=== PATIENT | female | born 1980 | race Caucasian/White ===

== ENCOUNTER 2017-04-10 09:35 | Inpatient (IN) | payer OTHER ==
--- NOTE | 2017-04-10 10:07 | PDOC ---
History of Present Illness - General Chief Complaint: Nausea/Vomiting Stated Complaint: COLD SYMPTOMS, BACK PAIN - History of Present Illness Initial Comments: 04/10/17 10:07 Ms. Cardenas is a 36 year old female with a significant past medical history of diverticulitis and cholesystectomy who presents to the emergency department with 3 days of suprapubic abdominal pain radiating to kidneys plus nausea, vomiting, diarrhea, and subjective fevers/chills. The patient denies chest pain, shortness of breath, headache and dizziness. Denies dysuria, frequency, urgency and hematuria. Allergies: NKDA Past surgical history: Gall bladder removal Social history: Reports drinking socially 1x/month. Will finish bottle of vodka when she does. PMD - Tanisha Alexander 04/10/17 10:38 04/10/17 10:49 Past History - Past Medical History Allergies/Adverse Reactions: Allergies Allergy/AdvReac Type Severity Reaction Status Date / Time No Known Drug Allergies Allergy Verified 04/10/17 09:40 Home Medications: Ambulatory Orders NK [No Known Home Medication] 04/10/17 Anemia: No Asthma: No Cancer: No Cardiac Disorders: No CVA: No COPD: No CHF: No Dementia: No Diabetes: No GI Disorders: No Disorders: No HTN: No Hypercholesterolemia: No Liver Disease: No Seizures: No Thyroid Disease: No Other medical history: none - Surgical History Cholecystectomy: Yes (12/12/12) - Psycho/Social/Smoking Cessation Hx Anxiety: No Suicidal Ideation: No Smoking Status: Yes Smoking History: Never smoked Have you smoked in the past 12 months: No Number of Cigarettes Smoked Daily: 0 Information on smoking cessation initiated: No Hx Alcohol Use: No Drug/Substance Use Hx: No Substance Use Type: Alcohol Review of Systems - Review of Systems Comments:: 04/10/17 10:07 GENERAL/CONSTITUTIONAL: + Subjective fever or chills. No weakness. HEAD, EYES, EARS, NOSE AND THROAT: No change in vision. No ear pain or discharge. No sore throat. CARDIOVASCULAR: No chest pain or shortness of breath RESPIRATORY: No cough, wheezing, or hemoptysis. GASTROINTESTINAL: + suprapubic abdominal pain radiating to kidneys plus nausea, vomiting, and diarrhea. Reports vomit is liquid and yellow and diarrhea is liquid and green GENITOURINARY: No dysuria, frequency, or change in urination. MUSCULOSKELETAL: No joint or muscle swelling or pain. No neck or back pain. SKIN: No rash NEUROLOGIC: No headache, vertigo, loss of consciousness, or change in strength/ sensation. ENDOCRINE: No increased thirst. No abnormal weight change HEMATOLOGIC/LYMPHATIC: No anemia, easy bleeding, or history of blood clots. ALLERGIC/IMMUNOLOGIC: No hives or skin allergy. 04/10/17 10:55 *Physical Exam - Vital Signs Last Vital Signs Temp Pulse Resp BP Pulse Ox 98.7 F 112 H 18 108/65 100 04/10/17 09:41 04/10/17 09:41 04/10/17 09:41 04/10/17 09:41 04/10/17 09:41 - Physical Exam Comments: 04/10/17 10:07 GENERAL: Awake, alert, and fully oriented, in no acute distress HEAD: No signs of trauma, normocephalic, atraumatic EYES: PERRLA, EOMI, sclera anicteric, conjunctiva clear ENT: Auricles normal inspection, hearing grossly normal, nares patent, oropharynx clear without exudates. Moist mucosa NECK: Normal ROM, supple, no lymphadenopathy, JVD, or masses LUNGS: No distress, speaks full sentences, clear to auscultation bilaterally HEART: Regular rate and rhythm, normal S1 and S2, no murmurs, rubs or gallops, peripheral pulses normal and equal bilaterally. ABDOMEN: Tender to palpation suprapubically, some guarding, no rebound. Soft, normoactive bowel sounds.Soft, nontender, normoactive bowel sounds. No masses EXTREMITIES: Normal inspection, Normal range of motion, no edema. No clubbing or cyanosis. NEUROLOGICAL: Cranial nerves II through XII grossly intact. Normal speech, normal gait, no focal sensorimotor deficits SKIN: Warm, Dry, normal turgor, no rashes or lesions noted. 04/10/17 10:57 Heart Score/ECG Review #1 04/10/17 11:21 Normal rhythm, normal rate, normal access, normal intervals. Normal EKG. ED Treatment Course - LABORATORY CBC & Chemistry Diagram: 04/10/17 10:50 04/10/17 10:50 Medical Decision Making - Medical Decision Making 04/10/17 11:06 Patient presents with abdominal pain consistent with her normal diverticulitis symptoms complicated by fevers/chills after eating seafood. Suspect exacerbation of diverticulitis with complicating features. Will order BMP / urinalysis etc. to rule out alternate cause of fever/chills. 04/10/17 11:11 Noted elevated white count, leukocyte esterase, protein, and blood. Suspect UTI as cause of fever/chills. 04/10/17 16:[address] impressions IMPRESSION: 1. Findings consistent with acute diverticulitis with possible colovesical fistula. 2. Suspected parapelvic renal cysts. The possibility of left-sided hydronephrosis cannot be excluded. Clinical correlation and follow-up recommended. Please see above discussion. Consulting Gen Surgery and Urology for admitting instruction 04/10/17 16:39 Surgery Consulted and will cover with medicine 04/10/17 17:23 Urology consulted and on board, will see patient in morning delayed CT ordered to reexamine possible fistula urinalysis / Urine culture ordered Admitted to medicine with surgery/urology following *DC/Admit/Observation/Transfer Diagnosis at time of Disposition: Fistula Diverticulitis Qualifiers: Diverticulitis site: unspecified part of intestinal tract Qualified Code(s): K57.93 - Diverticulitis of intestine, part unspecified, without perforation or abscess with bleeding - Referrals Referrals: Tanisha Moran MD [Primary Care Provider] - Gustavo Melo MD [Staff Physician] - Melvin Krishnamurthy MD., MD [Staff Physician] - - Attestations Physician Attestion: 04/10/17 10:58 I, Dr. Ricardo Han, attest that this document has been prepared under my direction and personally reviewed by me in its entirety. I further attest, that it accurately reflects all work, treatment, procedures and medical decision -making performed by me.
[2017-04-10] MEDS ORDERED: ONDANSETRON 4 MG/2 ML VIAL IVPB ONE (10:30)
[2017-04-10] MEDS ORDERED: morphine CARPU-JECT 4 MG/1 ML DISP.SYRIN IVPUSH ONE ×2 (10:30→16:28)
[2017-04-10] MEDS ORDERED: ONDANSETRON 4 MG/2 ML VIAL ONE (10:42)
[2017-04-10] MEDS ORDERED: morphine CARPU-JECT 4 MG/1 ML DISP.SYRIN ONE ×2 (10:42→16:30)
[2017-04-10 10:59] LABS: URINE APPEARANCE TURBID; URINE BILIRUBIN NEGATIVE (NEGATIVE); URINE GLUCOSE (UA) 1+ (NEGATIVE); URINE KETONE NEGATIVE (NEGATIVE); URINE NITRITE NEGATIVE (NEGATIVE); URINE UROBILINOGEN 4.0 E.U/dl E.U./dl (0.2-1.0)
[2017-04-10] MEDS: SODIUM CHLORIDE 1,000 ML IV STA (10:59)
[2017-04-10 11:01] LABS: BASOPHIL 0.3 % (0-2.0); EOSINOPHIL 0.1 % (0-4.5); MCH 30.4 pg (25.7-33.7); MCHC 34.2 g/dl (32.0-36.0); MEAN CELL VOLUME 88.8 fl (80-96); MEAN PLT VOLUME 8.7 fl (7.5-11.1); NEUTROPHILS 93.1 % (42.8-82.8); PLATELET COUNT 101 K/MM3 (134-434); WHITE BLOOD COUNT 14.8 K/mm3 (4.0-10.0)
[2017-04-10 11:02] LABS: URINE BLOOD 2+ (NEGATIVE); URINE COLOR YELLOW; URINE LEUK ESTERASE 1+ (NEGATIVE); URINE PROTEIN 2+ (NEGATIVE)
[2017-04-10 11:09] LABS: URINE BACTERIA RARE /hpf (NONE SEEN); URINE MUCUS FEW; URINE RBC 66 /hpf (0-3); URINE WBC 1065 /hpf (3-5)
[2017-04-10 11:25] LABS: ALBUMIN 3.1 g/dl (3.4-5.0); ALK PHOS 64 U/L (45-117); ANION GAP 13 (8-16); BILIRUBIN,TOTAL 2.2 mg/dL (0.2-1.0); CALCIUM 8.3 mg/dL (8.5-10.1); CO2 24 mmol/L (21-32); CREATININE 1.1 mg/dL (0.55-1.02); GLUCOSE,RANDOM 204 mg/dL (74-106); SGOT/AST 25 U/L (15-37); SGPT/ALT 36 U/L (12-78); TOT PROT 6.3 g/dl (6.4-8.2)
--- NOTE | 2017-04-10 13:12 | PDOC ---
Attending Attestation - HPI HPI: The patient is a 36 yo F with a past medical history of diverticulitis ( diagnosed in 2012), cholecystectomy, prediabetes, and cysts on breasts who comes in with nausea, vomiting, diarrhea and abdominal pain for 4 days. The patient describes her vomit and diarrhea as green and liquidy. Patient states her abdominal pain woke her up on night after a recent trip to [place]. Patient also endorses subjective fevers and chills. She states her pain began suprapubically and progressed to flank, however, upon evaluation she notes her pain is only in her suprapubic region. The patient states her pain is similar to her prior diverticulitis. - Physicial Exam PE: GENERAL: Awake, alert, and fully oriented, in no acute distress HEAD: No signs of trauma EYES: PERRLA, EOMI, sclera anicteric, conjunctiva clear ENT: Auricles normal inspection, hearing grossly normal, nares patent, oropharynx clear without exudates. Moist mucosa NECK: Normal ROM, supple, no lymphadenopathy, JVD, or masses LUNGS: Breath sounds equal, clear to auscultation bilaterally. No wheezes, and no crackles HEART: Regular rate and rhythm, normal S1 and S2, no murmurs, rubs or gallops ABDOMEN: Soft, Tenderness to LLQ. No peritoneal signs, normoactive bowel sounds. No guarding, no rebound. No masses EXTREMITIES: Normal range of motion, no edema. No clubbing or cyanosis. No cords, erythema, or tenderness NEUROLOGICAL: Cranial nerves II through XII grossly intact. Normal speech, normal gait SKIN: Warm, Dry, normal turgor, no rashes or lesions noted. - Medical Decision Making Will obtain: Abdominal CT Will educate patient on diverticulitis diet. Documentation prepared by Sasha Lozoya, acting as medical lead for Conor Hu MD/DO. <Sasha Lozoya - Last Filed: 04/10/17 13:12> - ED Attending Attestation I have performed the following: I have examined & evaluated the patient, The case was reviewed & discussed with the resident, I agree w/resident's findings & plan, Exceptions are as noted <Conor Hu - Last Filed: 04/14/17 16:53> Discharge Disposition - Discharge Dispostion Admit: Yes <Conor Hu - Last Filed: 04/14/17 16:53> - Diagnosis Fistula Diverticulitis Qualifiers: Diverticulitis site: unspecified part of intestinal tract
[2017-04-10] MEDS ORDERED: LEVOFLOXACIN 750 MG IVPB 150 ML IVPB ONE ×2 (15:51→16:31)
[2017-04-10] MEDS ORDERED: METRONIDAZOLE 500 MG PREMIXED 100 ML IVPB ONE ×2 (15:52→16:31)
[2017-04-10] MEDS ORDERED: ACETAMINOPHEN 1000 MG/100 ML VIAL (NON FORMULARY) IVPB ONE (16:47)
[2017-04-10] MEDS ORDERED: ACETAMINOPHEN INJECTION 100 ML IVPB ONE (16:48)
[2017-04-10] MEDS ORDERED: SODIUM CHLORIDE 1,000 ML IV STA ×3 (17:16→21:35)
[2017-04-10 20:25] LABS: URINE APPEARANCE CLOUDY; URINE BILIRUBIN NEGATIVE (NEGATIVE); URINE COLOR AMBER; URINE GLUCOSE (UA) 1+ (NEGATIVE); URINE KETONE TRACE (NEGATIVE); URINE NITRITE POSITIVE (NEGATIVE); URINE UROBILINOGEN 4.0 E.U/dl E.U./dl (0.2-1.0)
[2017-04-10 20:31] LABS: URINE BLOOD 2+ (NEGATIVE); URINE LEUK ESTERASE 3+ (NEGATIVE); URINE PROTEIN 2+ (NEGATIVE)
[2017-04-10 20:34] LABS: URINE BACTERIA MANY /hpf (NONE SEEN); URINE MUCUS RARE; URINE RBC 47 /hpf (0-3); URINE WBC 128 /hpf (3-5)
--- NOTE | 2017-04-10 21:36 | PDOC ---
*Physical Exam - Vital Signs Last Vital Signs Temp Pulse Resp BP Pulse Ox 99.3 F 109 H 20 102/55 96 04/10/17 18:25 04/10/17 18:25 04/10/17 18:25 04/10/17 18:25 04/10/17 18:25 ED Treatment Course - LABORATORY CBC & Chemistry Diagram: 04/10/17 10:50 04/10/17 10:50 - ADDITIONAL ORDERS Additional order review: Laboratory Results 04/10/17 04/10/17 04/10/17 20:05 19:40 17:00 Sodium Potassium Chloride Carbon Dioxide Anion Gap BUN Creatinine Creat Clearance w eGFR Random Glucose Lactic Acid 1.8 2.5 H* Calcium Total Bilirubin AST ALT Alkaline Phosphatase Total Protein Albumin Lipase Serum , Qual Urine Color Sully Urine Appearance Cloudy Urine pH 5.0 Ur Specific [place] Urine Protein 2+ H Urine Glucose (UA) 1+ H Urine Ketones Trace H Urine Blood 2+ H Urine Nitrite Positive Urine Bilirubin Negative Urine Urobilinogen 4.0 e.u/dl H Ur Leukocyte Esterase 3+ H D Urine RBC 47 Urine WBC 128 Ur Epithelial Cells Few Urine Bacteria Many Urine Mucus Rare 04/10/17 04/10/17 04/10/17 10:50 10:50 10:41 Sodium 136 Potassium 3.5 Chloride 99 Carbon Dioxide 24 Anion Gap 13 BUN 21 H D Creatinine 1.1 H Creat Clearance w eGFR 56.20 Random Glucose 204 H D Lactic Acid Calcium 8.3 L Total Bilirubin 2.2 H D AST 25 ALT 36 D Alkaline Phosphatase 64 Total Protein 6.3 L D Albumin 3.1 L D Lipase 71 L Serum , Qual Negative Urine Color Yellow Urine Appearance Turbid Urine pH 5.0 Ur Specific [place] Urine Protein 2+ H Urine Glucose (UA) 1+ H Urine Ketones Negative Urine Blood 2+ H Urine Nitrite Negative Urine Bilirubin Negative Urine Urobilinogen 4.0 e.u/dl H Ur Leukocyte Esterase 1+ H Urine RBC 66 Urine WBC 1065 Ur Epithelial Cells Many Urine Bacteria Rare Urine Mucus Few 04/10/17 10:50 RBC 4.36 MCV 88.8 MCHC 34.2 RDW 13.0 MPV 8.7 Neutrophils % 93.1 H Lymphocytes % 2.2 L D Monocytes % 4.3 Eosinophils % 0.1 Basophils % 0.3 - Medications Given in the ED: ED Medications Discontinued Medications Generic Name Dose Route Start Last Admin Trade Name [place] PRN Reason Stop Dose Admin Acetaminophen 1,000 mg 04/10/17 16:47 04/10/17 17:00 Ofirmev Injection - IVPB 04/10/17 16:48 1,000 mg ONCE ONE Administration Sodium Chloride 1,000 mls @ 1,000 mls/hr 04/10/17 10:35 04/10/17 10:59 Normal Saline - IV 04/10/17 11:34 1,000 mls/hr ASDIR STA Administration Metronidazole 100 mls @ 100 mls/hr 04/10/17 15:52 04/10/17 16:20 Flagyl 500mg Premixed Ivpb - IVPB 04/10/17 16:51 100 mls/hr ONCE ONE Administration Levofloxacin 150 mls @ 100 mls/hr 04/10/17 15:51 04/10/17 17:24 Levaquin 750 Mg Premixed Ivpb - IVPB 04/10/17 17:20 100 mls/hr ONCE ONE Administration Sodium Chloride 1,000 mls @ 1,000 mls/hr 04/10/17 17:16 04/10/17 17:24 Normal Saline - IV 04/10/17 18:15 1,000 mls/hr ASDIR STA Administration Sodium Chloride 1,000 mls @ 1,000 mls/hr 04/10/17 17:52 04/10/17 18:24 Normal Saline - IV 04/10/17 18:51 1,000 mls/hr ASDIR STA Administration Morphine Sulfate 4 mg 04/10/17 10:30 04/10/17 10:59 Morphine Injection - IVPUSH 04/10/17 10:31 4 mg ONCE ONE Administration Morphine Sulfate 4 mg 04/10/17 16:28 04/10/17 16:20 Morphine Injection - IVPUSH 04/10/17 16:29 4 mg ONCE ONE Administration Ondansetron HCl 4 mg 04/10/17 10:30 04/10/17 10:59 Zofran Injection IVPB 04/10/17 10:31 4 mg ONCE ONE Administration Medical Decision Making - Medical Decision Making 04/10/17 21:33 This pt was brought to my attention when Dr Melo consulted and realized the pt had not been officially admitted in the computer. 36 yo female with colovesical fistula is being admitted by by Dr Christopher and the surgeon Dr Melo has spoken with her also about this pt's pending surgery later this week -lactic acid went from 2.5 to 1.8 -pt received antibiotics -mild thrombocytopenia -it was agreed the pt could be admitted to med/surg 04/10/17 22:32 *DC/Admit/Observation/Transfer Diagnosis at time of Disposition: Fistula Diverticulitis Qualifiers: Diverticulitis site: unspecified part of intestinal tract Qualified Code(s): K57.93 - Diverticulitis of intestine, part unspecified, without perforation or abscess with bleeding - Discharge Dispostion Admit: Yes - Referrals Referrals: Melvin Krishnamurthy MD., [Staff Physician] - Gustavo Melo MD [Staff Physician] - Tanisha Moran MD [Primary Care Provider] - - Patient Instructions - Post Discharge Activity
--- NOTE | 2017-04-10 21:41 | HP ---
CHIEF COMPLAINT:Suprapubic Pain, Fever, Chills PCP: Dr. Tanisha Chun HISTORY OF PRESENT ILLNESS: This is a 36 y/o female with a past medical history of Diverticulitis. Who presents to the ED with suprapubic pain radiating to right flank x3 days. Patient reports having frequency symptoms x 5 days. Patient states" I've been taking ibuprofen for the pain, but now the pain is worse." Patient reports having subjective fevers, chills, N/V/D. Patient denies cough, SOB, CP. LMP 2 weeks ago ER course was notable for: (1) CTAP: acute diverticulitis with possible colovesical fistula, ? left sided hydronephrosis (2) Sepsis: T 103 P 112 WBC 14.8, left shift, LA 2.5~1.8 (after fluid resuscitation) (3) UTI: +1 leukocyte esterase, +2 blood, 1065 WBC Recent Travel: From [place] PAST MEDICAL HISTORY: Diverticulitis PAST SURGICAL HISTORY: Cholescystectomy Social History: Smoking: Never Alcohol: Socially, Vodka Drugs: Denies Lives alone, employed [employer] Family History: Mother: Diabetes Father: Hypertension, HLD Allergies No Known Drug Allergies Allergy (Verified 04/10/17 09:40) HOME MEDICATIONS: Home Medications Medication Instructions Recorded NK [No Known Home Medication] 04/10/17 REVIEW OF SYSTEMS CONSTITUTIONAL: fever, chills, loss of appetite Absent: diaphoresis, generalized weakness, malaise, weight change HEENT: Absent: rhinorrhea, nasal congestion, throat pain, throat swelling, difficulty swallowing, mouth swelling, ear pain, eye pain, visual changes CARDIOVASCULAR: Absent: chest pain, syncope, palpitations, irregular heart rate, lightheadedness , peripheral edema RESPIRATORY: Absent: cough, shortness of breath, dyspnea with exertion, orthopnea, wheezing, stridor, hemoptysis GASTROINTESTINAL: abdominal pain, nausea, vomiting, diarrhea Absent: abdominal distension, constipation, melena, hematochezia GENITOURINARY: frequency, flank pain Absent: dysuria, urgency, hesitancy, hematuria, genital pain MUSCULOSKELETAL: Absent: myalgia, arthralgia, joint swelling, back pain, neck pain SKIN: Absent: rash, itching, pallor HEMATOLOGIC/IMMUNOLOGIC: Absent: easy bleeding, easy bruising, lymphadenopathy, frequent infections ENDOCRINE: Absent: unexplained weight gain, unexplained weight loss, heat intolerance, cold intolerance NEUROLOGIC: Absent: headache, focal weakness or paresthesias, dizziness, unsteady gait, seizure, mental status changes, bladder or bowel incontinence PSYCHIATRIC: Absent: anxiety, depression, suicidal or homicidal ideation, hallucinations. PHYSICAL EXAMINATION Vital Signs - 24 hr 04/10/17 04/10/17 04/10/17 09:41 12:07 15:26 Temperature 98.7 F 98.9 F Pulse Rate 112 H Pulse Rate [ 102 H Apical] Respiratory 18 18 Rate Blood Pressure 108/65 Blood Pressure 106/56 [Right Arm] O2 Sat by Pulse 100 100 Oximetry (%) 04/10/17 04/10/17 04/10/17 15:50 16:44 18:25 Temperature 98.9 F 103 F H 99.3 F Pulse Rate Pulse Rate [ 98 H 113 H 109 H Apical] Respiratory 18 20 20 Rate Blood Pressure Blood Pressure 101/76 117/67 102/55 [Right Arm] O2 Sat by Pulse 100 100 96 Oximetry (%) GENERAL: Severe Obese, awake, alert, and fully oriented, in no acute distress. HEAD: Normal with no signs of trauma. EYES: Pupils equal, round and reactive to light, extraocular movements intact, sclera anicteric, conjunctiva clear. No lid lag. EARS, NOSE, THROAT: Ears normal, nares patent, oropharynx clear without exudates. Dry mucous membranes. NECK: Normal range of motion, supple without lymphadenopathy, JVD, or masses. LUNGS: Breath sounds equal, clear to auscultation bilaterally. No wheezes, and no crackles. No accessory muscle use. HEART: Regular rate and rhythm, normal S1 and S2 without murmur, rub or gallop. ABDOMEN: Soft, not distended, no guarding, no rebound, no masses. No hepatomegaly or splenomegaly. suprapubic tenderness, hyperactive bowel sounds MUSCULOSKELETAL: Normal range of motion at all joints. No bony deformities or tenderness. + R-CVA tenderness. UPPER EXTREMITIES: 2+ pulses, warm, well-perfused. No cyanosis. No clubbing. No peripheral edema. LOWER EXTREMITIES: 2+ pulses, warm, well-perfused. No calf tenderness. No peripheral edema. NEUROLOGICAL: Cranial nerves II-XII intact. Normal speech. Gait not observed. PSYCHIATRIC: Cooperative. Good eye contact. Appropriate mood and affect. SKIN: Warm, dry, normal turgor, no rashes or lesions noted, normal capillary refill. Tattoos Laboratory Results - last 24 hr 04/10/17 04/10/17 04/10/17 10:41 10:50 10:50 WBC 14.8 H RBC 4.36 Hgb 13.2 D Hct 38.7 MCV 88.8 MCH 30.4 MCHC 34.2 RDW 13.0 Plt Count 101 L D MPV 8.7 Neutrophils % 93.1 H Lymphocytes % 2.2 L D Monocytes % 4.3 Eosinophils % 0.1 Basophils % 0.3 Sodium 136 Potassium 3.5 Chloride 99 Carbon Dioxide 24 Anion Gap 13 BUN 21 H D Creatinine 1.1 H Creat Clearance w eGFR 56.20 Random Glucose 204 H D Lactic Acid Calcium 8.3 L Total Bilirubin 2.2 H D AST 25 ALT 36 D Alkaline Phosphatase 64 Total Protein 6.3 L D Albumin 3.1 L D Lipase 71 L Serum , Qual Urine Color Yellow Urine Appearance Turbid Urine pH 5.0 Ur Specific [place] Urine Protein 2+ H Urine Glucose (UA) 1+ H Urine Ketones Negative Urine Blood 2+ H Urine Nitrite Negative Urine Bilirubin Negative Urine Urobilinogen 4.0 e.u/dl H Ur Leukocyte Esterase 1+ H Urine RBC 66 Urine WBC 1065 Ur Epithelial Cells Many Urine Bacteria Rare Urine Mucus Few 04/10/17 04/10/17 04/10/17 10:50 17:00 19:40 WBC RBC Hgb Hct MCV MCH MCHC RDW Plt Count MPV Neutrophils % Lymphocytes % Monocytes % Eosinophils % Basophils % Sodium Potassium Chloride Carbon Dioxide Anion Gap BUN Creatinine Creat Clearance w eGFR Random Glucose Lactic Acid 2.5 H* Calcium Total Bilirubin AST ALT Alkaline Phosphatase Total Protein Albumin Lipase Serum , Qual Negative Urine Color [place] Urine Appearance Cloudy Urine pH 5.0 Ur Specific [place] Urine Protein 2+ H Urine Glucose (UA) 1+ H Urine Ketones Trace H Urine Blood 2+ H Urine Nitrite Positive Urine Bilirubin Negative Urine Urobilinogen 4.0 e.u/dl H Ur Leukocyte Esterase 3+ H D Urine RBC 47 Urine WBC 128 Ur Epithelial Cells Few Urine Bacteria Many Urine Mucus Rare 04/10/17 20:05 WBC RBC Hgb Hct MCV MCH MCHC RDW Plt Count MPV Neutrophils % Lymphocytes % Monocytes % Eosinophils % Basophils % Sodium Potassium Chloride Carbon Dioxide Anion Gap BUN Creatinine Creat Clearance w eGFR Random Glucose Lactic Acid 1.8 Calcium Total Bilirubin AST ALT Alkaline Phosphatase Total Protein Albumin Lipase Serum , Qual Urine Color Urine Appearance Urine pH Ur Specific [place] Urine Protein Urine Glucose (UA) Urine Ketones Urine Blood Urine Nitrite Urine Bilirubin Urine Urobilinogen Ur Leukocyte Esterase Urine RBC Urine WBC Ur Epithelial Cells Urine Bacteria Urine Mucus ASSESSMENT/PLAN: This is a 36 y/o female with a PMHx of Diverticulitis. Presents to the ED with suprapubic pain/ R flank pain. Admitted for Acute Diverticulitis, Sepsis, UTI for further evaluation of their emergent condition. Plan: 1. Acute Diverticulitis - Patient reports pain started after eating spicy seafood - CTAP- finished consistent with Acute Diverticulitis with possible colovesical fistula, suspected parapelvic renal cysts, ? left sided hydronephrosis - WBC 14.8 - LA 2.5~1.8 - Flagyl/Levaquin given in ED, will continue - Surgery following - Continue IVF - Continue Morphine, Zofran prn - NPO - Monitor CBC, BMP - Monitor vitals 2. Sepsis - Likely secondary to Colitis vs UTI - See Above - qSOFA Score 0 - SIRS Criteria Met IV: T 103, P 112, WBC 14.8 w/left shift, LA 2.5~1.8 - Appreciate ID Consult 3. UTI - Complicated - Urine Culture-pending - Continue Flagyl/Levaquin - Monitor vitals 4. FEN - NS@125ml/hr - Replete lytes prn - NPO 5. DVT Prophylaxis - OOB - SCDs - Hold ACs 2/2 Thrombocytopenia Code Status: Full Code Problem List - Problem (1) Sepsis Code(s): A41.9 - SEPSIS, UNSPECIFIED ORGANISM (2) Diverticulitis Code(s): K57.92 - DVTRCLI OF INTEST, PART UNSP, W/O PERF OR ABSCESS W/O BLEED Qualifiers: Diverticulitis site: unspecified part of intestinal tract (3) UTI (urinary tract infection) Code(s): N39.0 - URINARY TRACT INFECTION, SITE NOT SPECIFIED (4) Fistula Code(s): L98.8 - OTH DISRD OF THE SKIN AND SUBCUTANEOUS TISSUE (5) Lactic acidemia Code(s): E87.2 - ACIDOSIS (6) Thrombocytopenia Code(s): D69.6 - THROMBOCYTOPENIA, UNSPECIFIED (7) DVT prophylaxis Code(s): ONH0720 - Visit type - Emergency Visit Emergency Visit: Yes ED Registration Date: 04/10/17 Care time: The patient presented to the Emergency Department on the above date and was hospitalized for further evaluation of their emergent condition. - New Patient This patient is new to me today: Yes Date on this admission: 04/10/17 - Critical Care Critical Care patient: No
[2017-04-10] MEDS ORDERED: morphine CARPU-JECT 4 MG/1 ML DISP.SYRIN IVPUSH PRN (22:14)
[2017-04-10] MEDS ORDERED: ONDANSETRON 4 MG/2 ML VIAL IVPUSH PRN (22:15)
[2017-04-11] MEDS: METRONIDAZOLE 500 MG PREMIXED 100 ML IVPB SCH ×2 (00:07→10:09)
[2017-04-11 02:53] VITALS: BMI 40.7
[2017-04-11 08:00] LABS: BASOPHIL 0.1 % (0-2.0); EOSINOPHIL 0.1 % (0-4.5); MCH 30.3 pg (25.7-33.7); MCHC 33.7 g/dl (32.0-36.0); MEAN CELL VOLUME 89.8 fl (80-96); MEAN PLT VOLUME 9.5 fl (7.5-11.1); NEUTROPHILS 91.9 % (42.8-82.8); PLATELET COUNT 92 K/MM3 (134-434); RDW 12.9 % (11.6-15.6); WHITE BLOOD COUNT 11.4 K/mm3 (4.0-10.0)
[2017-04-11 08:24] LABS: ANION GAP 11 (8-16); CALCIUM 7.6 mg/dL (8.5-10.1); CO2 21 mmol/L (21-32); GLUCOSE,RANDOM 153 mg/dL (74-106)
[2017-04-11] MEDS ORDERED: LEVOFLOXACIN 750 MG IVPB 150 ML IVPB SCH (10:00)
--- NOTE | 2017-04-11 10:43 | EKG ---
Test Reason : Blood Pressure : / mmHG Vent. Rate : 104 BPM Atrial Rate : 104 BPM P-R Int : 144 ms QRS Dur : 098 ms QT Int : 360 ms P-R-T Axes : 037 044 015 degrees QTc Int : 473 ms SINUS TACHYCARDIA OTHERWISE NORMAL ECG NO PREVIOUS ECGS AVAILABLE Confirmed by KAM FARRELL MD ([id number]) on 04/11/2017 10:43:39 AM Referred By: Confirmed By:KAM FARRELL MD
[2017-04-11] MEDS: SODIUM CHLORIDE 1,000 ML IV STA (12:17)
--- NOTE | 2017-04-11 15:09 | CON.GU ---
Consult Consult Specialty:: Referred by:: medicine Reason for Consultation:: 36 year old with colovesical fistula - History of Present Illness Chief Complaint: 36 year old with colovesical fistula History of Present Illness: 36 year old with long history of diverticulitis who has had severe lower abdominal pain for about two weeks. CT scan is suggestive of a diverticular abscess with possible colovesical fistula. She reports an odd sensation when she voids but not specifically any air, - History Source History Provided By: Patient, Medical Record Limitations to Obtaining History: No Limitations - Past Medical History Renal/: No: Renal Failure, Renal Calculi, UTI ...LMP: 11/19/12 - Alcohol/Substance Use Hx Alcohol Use: No - Smoking History Smoking history: Never smoked Have you smoked in the past 12 months: No Aproximately how many cigarettes per day: 0 Home Medications - Allergies Allergies/Adverse Reactions: Allergies Allergy/AdvReac Type Severity Reaction Status Date / Time No Known Drug Allergies Allergy Verified 04/10/17 09:40 - Home Medications Home Medications: Ambulatory Orders NK [No Known Home Medication] 04/10/17 Review of Systems - Review of Systems Genitourinary: reports: Dysuria, Frequency. denies: Flank Pain Physical Exam- Vital Signs: Vital Signs Temperature 98.8 F 04/11/17 09:00 Pulse Rate 107 H 04/11/17 09:00 Respiratory Rate 16 04/11/17 09:00 Blood Pressure 120/56 04/11/17 09:00 O2 Sat by Pulse Oximetry (%) 98 04/10/17 23:25 Gastrointestinal: Yes: Soft, Tenderness Renal/: No: Bladder Distention, CVA Tenderness - Left, CVA Tenderness - Right , Jasmine Present Labs: CBC, BMP 04/11/17 06:10 04/11/17 06:10 Imaging - Results Cat Scan: Report Reviewed Problem List - Problems (1) Colovesical fistula Assessment/Plan: would recommend percutaneous drainage of abscess, and colon diversion. The bowel diversion will result in healing of the fistula. Code(s): N32.1 - VESICOINTESTINAL FISTULA
[2017-04-11] MEDS ORDERED: DEXTROSE 5%-0.45% SALINE 1,000 ML IV SCH (15:15)
--- NOTE | 2017-04-11 15:53 | PN ---
Physical Exam: SUBJECTIVE: Patient seen and examined at bedside. Two episodes of watery diarrhea over past 24 hours, does not know color, did not look. Has had episodes of chills. Feels very thirsty. OBJECTIVE: Vital Signs Period Temp Pulse Resp BP Sys/Beyer Pulse Ox Last 24 Hr 98.5 F-100.4 F 102-108 16-20 80-131/45-65 97-98 GENERAL: The patient is awake, alert, and fully oriented, in no acute distress. HEAD: Normal with no signs of trauma. EYES: PERRL, extraocular movements intact, sclera anicteric, conjunctiva clear. No ptosis. LUNGS: Breath sounds equal, clear to auscultation bilaterally, no wheezes, no crackles, no accessory muscle use. HEART: Regular rate and rhythm, S1, S2 without murmur, rub or gallop. ABDOMEN: Soft, LLQ and lower middle quadrant tenderness; normoactive bowel sounds, no guarding, no rebound EXTREMITIES: 2+ pulses, warm, well-perfused, no edema. NEUROLOGICAL: Cranial nerves II through XII grossly intact. Normal speech, gait not observed. Moving all extremities freely Laboratory Results - last 24 hr 04/11/17 04/11/17 06:10 06:10 WBC 11.4 H RBC 3.91 Hgb 11.8 D Hct 35.2 MCV 89.8 MCH 30.3 MCHC 33.7 RDW 12.9 Plt Count 92 L MPV 9.5 Neutrophils % 91.9 H Lymphocytes % 2.2 L Monocytes % 5.7 Eosinophils % 0.1 Basophils % 0.1 Sodium 140 Potassium 4.0 Chloride 108 H Carbon Dioxide 21 Anion Gap 11 BUN 16 D Creatinine 1.0 Random Glucose 153 H D Calcium 7.6 L Current Medications Generic Name Dose Route Start Last Admin Trade Name Freq PRN Reason Stop Dose Admin Piperacillin Sod/Tazobactam 100 mls @ 200 mls/hr 04/11/17 18:00 Sod 4.5 gm/ Dextrose IVPB Q8H-IV MASON Protocol Morphine Sulfate 4 mg 04/10/17 22:14 04/11/17 06:22 Morphine Injection - IVPUSH 4 mg Q6H PRN Administration PAIN Ondansetron HCl 4 mg 04/10/17 22:15 04/10/17 22:55 Zofran Injection IVPUSH 4 mg Q6H PRN Administration NAUSEA AND/OR VOMITING Imaging CTAP - two studies done on 04/10/17: (1) acute diverticulitis in the mid sigmoid colon; (2) collection/abscess inseparable from thickened dome of the urinary bladder; (3) possible colovesical fistula; (4) possible left-sided hydronephrosis; (5) s/p cholecystectomy ASSESSMENT/PLAN 36 year-old female with a PMH significant for diverticulitis and s/p cholecystectomy. Admitted for acute diverticulitis, abscess, and possible colovesical fistula. Severe sepsis secondary to acute diverticulitis with abscess and colovesical fistula Bacteremia --over the past 24 hours, Tm 103, tachycardic to 115, WBC 14.8k, lactic acidosis --blood cultures x 2 pending organism --switched to Zosyn today (day #1) --seen and evaluated by surgery, plan is for laparoscopic sigmoid resection tomorrow with repair of colovesicular fistula; high likelihood of open; high likelihood of ostomy; operation tentatively scheduled for 04/12/[address] Stone Elevated bilirubin --may be secondary to sepsis, will get LFTs including indirect bili F/E/N Fluids: NS @ 125mL/hr Electrolytes: replete as indicated Nutrition: water, ice chips; NPO after midnight DVT prophylais: SCDs, oob, ambulation; hold chemical prophylaxis for surgery tomorrow Dispo: continues to require inpatient care. Full Code. Visit type - Emergency Visit Emergency Visit: Yes ED Registration Date: 04/10/17 Care time: The patient presented to the Emergency Department on the above date and was hospitalized for further evaluation of their emergent condition. - New Patient This patient is new to me today: Yes Date on this admission: 04/11/17 - Critical Care Critical Care patient: No
[2017-04-11] MEDS ORDERED: MAGNESIUM HYDROX 2400MG/30ML ORAL SUSPENSION 30 ML CUP PO ONE (16:18)
--- NOTE | 2017-04-11 16:22 | PN ---
Progress Note, Physician Chief Complaint: low grade abd pain History of Present Illness: pt still with some LLQ pain. CT reviewed. thirsty. - Current Medication List Current Medications: Active Medications Metronidazole (Flagyl 500mg Premixed Ivpb -) 100 mls @ 100 mls/hr IVPB Q8H-IV MASON Last Admin: 04/11/17 10:09 Dose: 100 mls/hr Levofloxacin (Levaquin 750 Mg Premixed Ivpb -) 150 mls @ 100 mls/hr IVPB DAILY MASON Last Admin: 04/11/17 11:50 Dose: 100 mls/hr Magnesium Hydroxide (Milk Of Magnesia -) 30 ml PO ONCE ONE Stop: 04/11/17 16:19 Morphine Sulfate (Morphine Injection -) 4 mg IVPUSH Q6H PRN PRN Reason: PAIN Last Admin: 04/11/17 06:22 Dose: 4 mg Ondansetron HCl (Zofran Injection) 4 mg IVPUSH Q6H PRN PRN Reason: NAUSEA AND/OR VOMITING Last Admin: 04/10/17 22:55 Dose: 4 mg - Objective Vital Signs: Vital Signs Temperature 98.9 F 04/11/17 15:00 Pulse Rate 105 H 04/11/17 15:00 Respiratory Rate 18 04/11/17 15:00 Blood Pressure 123/53 04/11/17 15:00 O2 Sat by Pulse Oximetry (%) 98 04/10/17 23:25 Constitutional: Yes: No Distress, Calm Eyes: Yes: Conjunctiva Clear, EOM Intact HENT: Yes: Atraumatic, Normocephalic Neck: Yes: Supple, Trachea Midline Cardiovascular: Yes: Regular Rate and Rhythm Respiratory: Yes: Regular Gastrointestinal: Yes: Soft, Tenderness (LLQ.). No: Distention ...Rectal Exam: Yes: Deferred Genitourinary: No: CVA Tenderness - Left, CVA Tenderness - Right Breast(s): No: Gynecomastia, Mass Musculoskeletal: No: Joint Stiffness, Joint Swelling Extremities: No: Calf Tenderness, Erythema Integumentary: No: Erythema, Rash Neurological: Yes: Alert, Oriented Psychiatric: Yes: Alert, Oriented Labs: CBC, BMP 04/11/17 06:10 04/11/17 06:10 Problem List - Problems (1) Colovesical fistula Assessment/Plan: patient counseled will attempt laparoscopic sigmoid resection tomorrow with repair of colovesicular fistula. high likelihood of open. high likelihood of ostomy. operation tentatively sheduled for 04/12/17 at 1pm. Code(s): N32.1 - VESICOINTESTINAL FISTULA
--- NOTE | 2017-04-11 17:13 | CONSULT ---
Consult Consult Specialty:: infectious diseases Reason for Consultation:: diverticulitis/w/abscess with suspicion of colovesical fistula - History of Present Illness Chief Complaint: abd pain History of Present Illness: 36 year old with long history of diverticulitis according to her started about more than a year back starting having severe lower abdominal pain for about two weeks. When asked her when was her last attack,she mentions that she does not really know. patient came to the hospital was admitted and the CT scan is suggestive of a diverticular abscess with possible colovesical fistula. patient denies any air in the urine patient has been evaluated by surgery and urology and the plan is to take her to the operating room. currently patient is comfortable and her family is in the room on admission patient was also c/o of rt flank pain she took ibuprofen but without any relief subjective fevers work up also showed leukocytosis - History Source History Provided By: Patient Limitations to Obtaining History: No Limitations - Past Medical History Renal/: No: Renal Failure, Renal Calculi, UTI ...LMP: 11/19/12 - Alcohol/Substance Use Hx Alcohol Use: No - Smoking History Smoking history: Never smoked Have you smoked in the past 12 months: No Aproximately how many cigarettes per day: 0 Home Medications - Allergies Allergies/Adverse Reactions: Allergies Allergy/AdvReac Type Severity Reaction Status Date / Time No Known Drug Allergies Allergy Verified 04/10/17 09:40 - Home Medications Home Medications: Ambulatory Orders NK [No Known Home Medication] 04/10/17 Review of Systems - Review of Systems Constitutional: reports: Loss of Appetite Eyes: reports: No Symptoms HENT: reports: No Symptoms Neck: reports: No Symptoms Cardiovascular: reports: No Symptoms Respiratory: reports: No Symptoms Gastrointestinal: reports: Abdominal Pain Genitourinary: reports: Other Musculoskeletal: reports: No Symptoms Integumentary: reports: No Symptoms Neurological: reports: No Symptoms Endocrine: reports: No Symptoms Hematology/Lymphatic: reports: No Symptoms Psychiatric: reports: No Symptoms Physical Exam Vital Signs: Vital Signs Temperature 100.3 F H 04/11/17 16:20 Pulse Rate 115 H 04/11/17 16:20 Respiratory Rate 20 04/11/17 16:20 Blood Pressure 127/73 04/11/17 16:20 O2 Sat by Pulse Oximetry (%) 98 04/10/17 23:25 Constitutional: Yes: Well Nourished, Moderate Distress, Obese Eyes: Yes: Conjunctiva Clear HENT: Yes: Atraumatic Neck: Yes: Supple, Trachea Midline Cardiovascular: Yes: Regular Rate and Rhythm Respiratory: Yes: Regular, CTA Bilaterally Gastrointestinal: Yes: Soft, Tenderness Musculoskeletal: Yes: WNL Extremities: Yes: WNL Neurological: Yes: Alert, Oriented Psychiatric: Yes: Alert, Oriented Labs: CBC, BMP 04/11/17 06:10 04/11/17 06:10 Assessment/Plan Problem List - Problem (1) Sepsis Code(s): A41.9 - SEPSIS, UNSPECIFIED ORGANISM (2) Diverticulitis Code(s): K57.92 - DVTRCLI OF INTEST, PART UNSP, W/O PERF OR ABSCESS W/O BLEED Qualifiers: Diverticulitis site: unspecified part of intestinal tract (3) UTI (urinary tract infection) Code(s): N39.0 - URINARY TRACT INFECTION, SITE NOT SPECIFIED (4) colovesical fistula (5) Lactic acidemia Code(s): E87.2 - ACIDOSIS (6) Thrombocytopenia Code(s): D69.6 - THROMBOCYTOPENIA, UNSPECIFIED (7)leukocytosis 8 gm negative bacteremia plan will change abx to zosyn hydration continue current mgmt await for surgery will await the finding await for cx results to identify the organism
[2017-04-11] MEDS ORDERED: PIPERACILLIN/TAZOBACTAM 4.5 GM VIAL IVPB ONE (17:57)
[2017-04-11] MEDS ORDERED: DEXTROSE 5%-WATER 100 ML IVPB ONE (17:57)
[2017-04-11] MEDS: PIPERACILLIN/TAZOB 4.5 GM 4.5 GM in DEXTROSE 5%-WATER 100 ML IVPB SCH (18:20)
--- NOTE | 2017-04-11 18:29 | CONSULT ---
Consult Consult Specialty:: General Surgery Referred by:: Dr. Hu/Ashwin Reason for Consultation:: diverticulitis with colovesical fistula - History of Present Illness Chief Complaint: suprapubic and LLQ pain History of Present Illness: 36yo morbidly obese F with h/o lap fernanda 2-3 years ago here, first experienced diverticulitis a couple of weeks after her surgery and was hospitalized for it. Since then, she has "watched her diet," and avoided some types of foods, trying to minimize recurrent attacks, but does get flares several times a year. She has not sought medical care for any of these since the first time, but self- treats with periods of NPO, fluids, rest, and dietary changes. She tends to diarrhea (nonbloody), and pain is usually in the left lower abdomen, but has been more suprapubic this time and at the last episode in late March. The current attack began on , associated with darkening of her urine, an odd feeling at the end of urination, diarrhea, and nausea and vomiting a few times on Tuesday. She also began having some pain in her right flank/sacroiliac area. The abdominal pain got so bad, she came to the ER yesterday, where her wbc was 14.8, UA was positive for infection, and CT showed proximal sigmoid diverticulitis without abscess or perforation as well as air in the bladder and inflammation suggestive of colovesical fistula. Delayed images confirmed air and contrast with inflammatory changes around the dome of the bladder highly suspicious for same. She also reports having had a colonoscopy a few months ago, where they found only the diverticul(itis/osis?). She asked if she needed surgery and was told she only needed to watch her diet. She has lost about 30 pounds in the last year because of diet changes. Her only regular home med is control pills, started 2 months ago, to regulate periods which have not come back since she stopped taking long-term injectable contraception about 4-5 years ago. - History Source History Provided By: Patient Limitations to Obtaining History: No Limitations - Past Medical History Gastrointestinal: Yes: Diverticulitis Reproductive: Yes: Other (amenorrhea - had been on depo but period did not return when stopped, just started OCP 2m ago to try and regulate) ...LMP: 11/19/12 ...: No Additional Medical History: morbid obesity - Past Surgical History Past Surgical History: Yes: Cholecystectomy (laparoscopic 2-3 years ago), Colonoscopy (few months ago) - Alcohol/Substance Use Hx Alcohol Use: No History of Substance Use: reports: None - Smoking History Smoking history: Never smoked Have you smoked in the past 12 months: No Aproximately how many cigarettes per day: 0 Home Medications - Allergies Allergies/Adverse Reactions: Allergies Allergy/AdvReac Type Severity Reaction Status Date / Time No Known Drug Allergies Allergy Verified 04/10/17 09:40 - Home Medications Home Medications: Ambulatory Orders NK [No Known Home Medication] 04/10/17 Family Disease History - Family Disease History Family History: Unremarkable Review of Systems - Review of Systems Constitutional: denies: Chills, Fever Eyes: denies: Blurred Vision, Double Vision HENT: denies: Difficult Swallowing, Nasal Congestion, Throat Pain Neck: denies: Swollen Glands, Tenderness Cardiovascular: denies: Chest Pain, Palpitations Respiratory: denies: Cough, SOB Gastrointestinal: reports: Abdominal Pain, Diarrhea (tends to frequently, especially with flares of diverticulitis), Nausea (Tuesday), Vomiting (Tuesday). denies: Melena, Vomiting Blood Genitourinary: reports: Flank Pain (right side last few days), Other (darker in color last few days to a week, funny sensation at end of urination - could be air). denies: Burning, Dysuria, Menses (not back since stopping long-term contraception several years ago) Breasts: reports: Skin Changes (right), Other (cyst identified right breast, aspiration attempted but "they got nothing out," - the area opened and drained dark brown fluid recently but the skin has not healed yet (she has been using peroxide on the site)) Musculoskeletal: denies: Back Pain, Joint Swelling Integumentary: reports: Wound (right breast). denies: Rash Neurological: denies: Dizziness, Headache Endocrine: denies: Unexplained Weight Gain, Unexplained Weight Loss (has lost about 30 pounds in the last year, attributed to "watching her diet" because of the diverticulitis) Psychiatric: denies: Anxiety, Depression Physical Exam Vital Signs: Vital Signs Temperature 100.3 F H 04/11/17 16:20 Pulse Rate 115 H 04/11/17 16:20 Respiratory Rate 20 04/11/17 16:20 Blood Pressure 127/73 04/11/17 16:20 O2 Sat by Pulse Oximetry (%) 98 04/11/17 09:00 Constitutional: Yes: No Distress, Calm, Obese Eyes: Yes: Conjunctiva Clear, EOM Intact HENT: Yes: Atraumatic, Normocephalic Cardiovascular: Yes: Regular Rate and Rhythm. No: Murmur Respiratory: Yes: Regular, CTA Bilaterally Gastrointestinal: Yes: Normal Bowel Sounds, Soft, Abdomen, Obese, Tenderness ( suprapubic and less LLQ without rebound or guarding). No: Distention, Tenderness, Rebound ...Rectal Exam: Yes: Deferred Renal/: Yes: CVA Tenderness - Right. No: CVA Tenderness - Left Breast(s): Yes: Right, Skin Changes (two small ulcers/scabs at 1:00 and 2:00 periareolar, nontender, with mild local erythema, no palpable underlying mass; able to express a few drops of cloudy fluid from the 2:00 site, but no spontaneous drainage). No: Discharge from Nipple, Nipple Inversion Musculoskeletal: No: Joint Stiffness, Joint Swelling Extremities: No: Cool, Cyanosis Edema: No Peripheral Pulses WNL: Yes Integumentary: Yes: Tattoos. No: Rash Wound/Incision: Yes: Open to air (right breast periareolar scabs/ulcers). No: Draining, Bleeding Neurological: Yes: Alert, Oriented Psychiatric: Yes: Alert, Oriented Labs: CBC, BMP 04/11/17 06:10 04/11/17 06:10 Abnormal Lab Results 04/10/17 04/11/17 04/11/17 19:40 06:10 06:10 WBC 11.4 H Plt Count 92 L Neutrophils % 91.9 H Lymphocytes % 2.2 L Chloride 108 H Random Glucose 153 H D Calcium 7.6 L Urine Protein 2+ H Urine Glucose (UA) 1+ H Urine Ketones Trace H Urine Blood 2+ H Urine Urobilinogen 4.0 e.u/dl H Ur Leukocyte Esterase 3+ H D Microbiology 04/10/17 17:00 Blood Culture - Preliminary Blood - Peripheral Venous Pending Organism 04/10/17 17:20 Blood Culture - Preliminary Blood - Peripheral Venous Pending Organism wbc down from 14.8 Imaging - Results Cat Scan: Report Reviewed (delayed images better show likely colovesical fistula with inflammatory changes and contrast/loculated air at dome of bladder ; proximal sigmoid diverticulitis without abscess or gross free air), Image Reviewed Problem List - Problems (1) Colovesical fistula Assessment/Plan: Had discussion with patient last night in ER at first encounter: she will require surgery to separate the colon from the bladder and take out the diseased sigmoid colon. It is very possible and even probable that she may require an ostomy for a period of time, but it should be reversible after the area has healed. We discussed and she is prepared for the likelihood of open surgery and the ostomy early this week, though after further discussion with my partner, Dr. Stone, it is also possible that surgery may be accomplished laparoscopically and without diversion. She is agreeable to operation with the understanding that there is a good chance of conversion to open, and also a high chance of waking up with an ostomy. She is admitted to medicine, NPO and on fluids and antibiotics. Surgery is planned for tomorrow at 1pm with Dr. Stone as primary and me assisting. Code(s): N32.1 - VESICOINTESTINAL FISTULA (2) Diverticulitis large intestine w/o perforation or abscess w/o bleeding Assessment/Plan: NPO on fluids and antibiotics Surgery will include sigmoidectomy Code(s): K57.32 - DVTRCLI OF LG INT W/O PERFORATION OR ABSCESS W/O BLEEDING (3) Bacteremia due to Gram-negative bacteria Assessment/Plan: ID has changed antibiotics to Zosyn trend labs await culture results and sensitivities Code(s): R78.81 - BACTEREMIA (4) Thrombocytopenia Assessment/Plan: Will monitor platelets. Please ensure type and screen/match in blood bank in case of transfusion need. Code(s): D69.6 - THROMBOCYTOPENIA, UNSPECIFIED (5) Morbid (severe) obesity due to excess calories Code(s): E66.01 - MORBID (SEVERE) OBESITY DUE TO EXCESS CALORIES
[2017-04-11] MEDS ORDERED: ACETAMINOPHEN 500 MG TABLET (FP) ONE (19:44)
[2017-04-11] MEDS ORDERED: ACETAMINOPHEN 500 MG TABLET (FP) PO ONE (21:54)
[2017-04-11 22:21] LABS: INR 1.73 (0.82-1.09); PROTHROMBIN TIME (PATIENT) 19.2 SEC (9.98-11.88)
[2017-04-11] MEDS: SODIUM CHLORIDE 1,000 ML IV SCH (23:44)
[2017-04-12] MEDS: PIPERACILLIN/TAZOB 4.5 GM 4.5 GM in DEXTROSE 5%-WATER 100 ML IVPB SCH ×3 (02:07→19:40)
[2017-04-12 07:54] LABS: BASOPHIL 0.3 % (0-2.0); EOSINOPHIL 0.3 % (0-4.5); MCH 30.3 pg (25.7-33.7); MCHC 33.9 g/dl (32.0-36.0); MEAN CELL VOLUME 89.3 fl (80-96); MEAN PLT VOLUME 9.3 fl (7.5-11.1); NEUTROPHILS 88.4 % (42.8-82.8); PLATELET COUNT 108 K/MM3 (134-434); WHITE BLOOD COUNT 8.6 K/mm3 (4.0-10.0)
[2017-04-12 07:59] LABS: ALBUMIN 2.1 g/dl (3.4-5.0); ANION GAP 8 (8-16); BILIRUBIN,TOTAL 1.2 mg/dL (0.2-1.0); CALCIUM 8.2 mg/dL (8.5-10.1); CO2 21 mmol/L (21-32); CREATININE 0.9 mg/dL (0.55-1.02); GLUCOSE,RANDOM 146 mg/dL (74-106); MAGNESIUM 1.9 mg/dL (1.8-2.4); SGOT/AST 36 U/L (15-37); SGPT/ALT 40 U/L (12-78); TOT PROT 5.2 g/dl (6.4-8.2)
[2017-04-12 08:00] LABS: ALK PHOS 71 U/L (45-117)
--- NOTE | 2017-04-12 09:48 | PN ---
Physical Exam: SUBJECTIVE: Patient seen and examined. Fevers/chills overnight, intermittent pain. OBJECTIVE: Vital Signs Period Temp Pulse Resp BP Sys/Beyer Pulse Ox Last 24 Hr 98.9 F-103 F 86-115 18-20 107-127/53-73 97 GENERAL: The patient is awake, alert, and fully oriented, in no acute distress. HEAD: Normal with no signs of trauma. EYES: PERRL, extraocular movements intact, sclera anicteric, conjunctiva clear. No ptosis. ENT: Ears normal, nares patent, oropharynx clear without exudates, moist mucous membranes. NECK: Trachea midline, full range of motion, supple. LUNGS: Breath sounds equal, clear to auscultation bilaterally, no wheezes, no crackles, no accessory muscle use. HEART: Regular rate and rhythm, S1, S2 without murmur, rub or gallop. ABDOMEN: Soft, tender to palpation in suprapubic region and LLQ, nondistended, normoactive bowel sounds, no guarding, no rebound, no hepatosplenomegaly, no masses. EXTREMITIES: 2+ pulses, warm, well-perfused, no edema. NEUROLOGICAL: Cranial nerves II through XII grossly intact. Normal speech, gait not observed. PSYCH: Normal mood, normal affect. SKIN: Warm, dry, normal turgor, no rashes or lesions noted Laboratory Results - last 24 hr 04/11/17 04/11/17 04/12/17 21:30 21:30 06:00 WBC 8.6 RBC 3.63 Hgb 11.0 Hct 32.4 MCV 89.3 MCH 30.3 MCHC 33.9 RDW 13.0 Plt Count 108 L MPV 9.3 Neutrophils % 88.4 H Lymphocytes % 4.7 L D Monocytes % 6.3 Eosinophils % 0.3 D Basophils % 0.3 INR 1.73 H Sodium Potassium Chloride Carbon Dioxide Anion Gap BUN Creatinine Creat Clearance w eGFR Random Glucose Calcium Magnesium Total Bilirubin AST ALT Alkaline Phosphatase Total Protein Albumin Blood Type A POSITIVE Antibody Screen Negative 04/12/17 06:00 WBC RBC Hgb Hct MCV MCH MCHC RDW Plt Count MPV Neutrophils % Lymphocytes % Monocytes % Eosinophils % Basophils % INR Sodium 140 Potassium 3.6 Chloride 111 H Carbon Dioxide 21 Anion Gap 8 BUN 15 Creatinine 0.9 Creat Clearance w eGFR > 60 Random Glucose 146 H Calcium 8.2 L Magnesium 1.9 Total Bilirubin 1.2 H D AST 36 D ALT 40 Alkaline Phosphatase 71 Total Protein 5.2 L Albumin 2.1 L D Blood Type Antibody Screen Active Medications Generic Name Dose Route Start Last Admin Trade Name Freq PRN Reason Stop Dose Admin Piperacillin Sod/Tazobactam 100 mls @ 200 mls/hr 04/11/17 18:00 04/12/17 02:07 Sod 4.5 gm/ Dextrose IVPB 200 mls/hr Q8H-IV MASON Administration Protocol Sodium Chloride 1,000 mls @ 125 mls/hr 04/11/17 19:30 04/11/17 23:44 Normal Saline - IV 125 mls/hr ASDIR MASON Administration Morphine Sulfate 4 mg 04/10/17 22:14 04/11/17 06:22 Morphine Injection - IVPUSH 4 mg Q6H PRN Administration PAIN Ondansetron HCl 4 mg 04/10/17 22:15 04/10/17 22:55 Zofran Injection IVPUSH 4 mg Q6H PRN Administration NAUSEA AND/OR VOMITING Imaging CTAP - two studies done on 04/10/17: (1) acute diverticulitis in the mid sigmoid colon; (2) collection/abscess inseparable from thickened dome of the urinary bladder; (3) possible colovesical fistula; (4) possible left-sided hydronephrosis; (5) s/p cholecystectomy ASSESSMENT/PLAN: 36 year-old female admitted with acute diverticulitis, abscess , and possible colovesical fistula. 1. Severe sepsis and bacteremia secondary to acute diverticulitis with abscess and colovesical fistula - Blood and urine cultures growing non lactose-fermenting GNB; await speciation -Continue Zosyn today (day #2) -For laparoscopic sigmoid resection tomorrow with repair of colovesicular fistula; high likelihood of open; high likelihood of ostomy 2. Prolonged INR -Suspect secondary to severe sepsis -Follow 3. Elevated bilirubin -Trending down; follow 4. F/E/N -NS 125 mLs/hr -NPO DVT prophylais: SCDs Dispo: Continues to require inpatient care. Full Code. Visit type - Emergency Visit Emergency Visit: Yes ED Registration Date: 04/10/17 Care time: The patient presented to the Emergency Department on the above date and was hospitalized for further evaluation of their emergent condition. - New Patient This patient is new to me today: Yes Date on this admission: 04/17/17 - Critical Care Critical Care patient: No - Discharge Referral Referred to [facility] Med P.C.: No
[2017-04-12] MEDS ORDERED: PIPERACILLIN/TAZOBACTAM 4.5 GM VIAL IVPB ONE ×2 (11:12→19:01)
[2017-04-12] MEDS ORDERED: DEXTROSE 5%-WATER 100 ML IVPB ONE ×2 (11:13→19:01)
[2017-04-12] MEDS: SODIUM CHLORIDE 1,000 ML IV SCH ×2 (11:18→21:30)
[2017-04-12] MEDS ORDERED: SUCCINYLCHOLINE CHLORIDE 200 MG/10 ML VIAL ONE (13:12)
[2017-04-12] MEDS ORDERED: PROPOFOL 20 ML ONE ×2 (13:12)
[2017-04-12] MEDS ORDERED: ROCURONIUM BROMIDE 50 MG/5 ML VIAL ONE ×3 (13:13→16:59)
[2017-04-12] MEDS ORDERED: MIDAZOLAM HCL 2 MG/2 ML SINGLE DOSE VIAL ONE ×2 (13:13)
[2017-04-12] MEDS ORDERED: ISOSULFAN BLUE 10 MG/ML VIAL SQ ONE (13:44)
--- NOTE | 2017-04-12 14:03 | PN ---
Progress Note, Physician History of Present Illness: patient in the operating room - Current Medication List Current Medications: Active Medications Piperacillin Sod/Tazobactam (Sod 4.5 gm/ Dextrose) 100 mls @ 200 mls/hr IVPB Q8H-IV MASON PRN Reason: Protocol Last Admin: 04/12/17 11:19 Dose: 200 mls/hr Sodium Chloride (Normal Saline -) 1,000 mls @ 125 mls/hr IV ASDIR MASON Last Admin: 04/12/17 11:18 Dose: 125 mls/hr Morphine Sulfate (Morphine Injection -) 4 mg IVPUSH Q6H PRN PRN Reason: PAIN Last Admin: 04/11/17 06:22 Dose: 4 mg Ondansetron HCl (Zofran Injection) 4 mg IVPUSH Q6H PRN PRN Reason: NAUSEA AND/OR VOMITING Last Admin: 04/10/17 22:55 Dose: 4 mg - Objective Vital Signs: Vital Signs Temperature 99.4 F 04/12/17 10:00 Pulse Rate 89 04/12/17 10:00 Respiratory Rate 18 04/12/17 10:00 Blood Pressure 112/66 04/12/17 10:00 O2 Sat by Pulse Oximetry (%) 97 04/11/17 21:00 Labs: CBC, BMP 04/12/17 06:00 04/12/17 06:00 INR, PTT INR 1.73 (0.82-1.09) H 04/11/17 21:30
[2017-04-12] MEDS ORDERED: ACETAMINOPHEN INJECTION 100 ML IVPB ONE (15:01)
[2017-04-12] MEDS ORDERED: HYDROmorphone HCL/PF 1 MG/ML VIAL (FOR PYXIS CHARGING ONLY) ONE ×3 (16:27→17:00)
[2017-04-12] MEDS ORDERED: ONDANSETRON 4 MG/2 ML VIAL ONE (16:50)
[2017-04-12] MEDS ORDERED: DEXAMETHASONE SOD PHOSPHATE 4 MG/1 ML VIAL ONE (16:50)
[2017-04-12] MEDS ORDERED: HYDROmorphone HCL CARPU-JECT 1 MG/1 ML DISP.SYRIN IVPUSH PRN ×2 (17:38→21:53)
[2017-04-12] MEDS ORDERED: PROMETHAZINE HCL 25 MG/1 ML VIAL IVPUSH PRN ×2 (17:38→21:53)
[2017-04-12] MEDS ORDERED: ONDANSETRON 4 MG/2 ML VIAL IVPUSH PRN ×2 (17:38→21:53)
[2017-04-12] MEDS ORDERED: HYDROmorphone *PCA* 10MG/50ML DISP.SYRIN PCA SCH (17:45)
[2017-04-12] MEDS ORDERED: NEOSTIGMINE METHYLSULFATE 0.5 MG/ML - 10 ML MDV ONE (18:31)
[2017-04-12] MEDS ORDERED: HYDROmorphone *PCA* 10MG/50ML DISP.SYRIN PCA ONE (19:02)
[2017-04-12] MEDS ORDERED: ENOXAPARIN NA (PORCINE) 40 MG/0.4 ML DISP.SYRIN SQ SCH (19:05)
--- NOTE | 2017-04-12 19:22 | OP ---
Operative Note - Note: Operative Date: 04/12/17 Pre-Operative Diagnosis: sigmoid diverticulitis with colovesical fistula Operation: laparoscopic converted to open sigmoidectomy with takedown of colovesical fistula Findings: very inflamed sigmoid colon; colovesical fistula taken down with no leak on methylene blue test, pocket of purulence drained from anterior pelvic wall above fistula site and from left pelvic gutter near left adnexa and inflamed colonic mesentery; no air leak after 31 EEA anastomosis Post-Operative Diagnosis: Same as Pre-op Surgeon: Negrito Stone Network Communications Engineer: Gustavo Melo Anesthesiologist/SITE WORKER: Kaley Pantoja Anesthesia: General Specimens Removed: sigmoid colon, anastomotic donuts x2 to pathology Estimated Blood Loss (mls): 400 Drains & Tubes with Location: KATT in pelvis and up left colic gutter; Jasmine catheter Drains, Volume Out (mls): 300 (UOP) Fluid Volume Replaced (mls): 3,000 (crystalloid) Operative Report Dictated: Yes
[2017-04-12] MEDS: HYDROmorphone *PCA* 10MG/50ML DISP.SYRIN PCA SCH (22:00)
[2017-04-13] MEDS ORDERED: DEXTROSE 5%-WATER 100 ML IVPB ONE ×3 (01:30→17:27)
[2017-04-13] MEDS ORDERED: PIPERACILLIN/TAZOBACTAM 4.5 GM VIAL IVPB ONE ×3 (01:30→17:27)
[2017-04-13] MEDS: PIPERACILLIN/TAZOB 4.5 GM 4.5 GM in DEXTROSE 5%-WATER 100 ML IVPB SCH ×3 (01:46→18:16)
[2017-04-13] MEDS: SODIUM CHLORIDE 1,000 ML IV SCH (04:33)
[2017-04-13] MEDS ORDERED: ENOXAPARIN NA (PORCINE) 40 MG/0.4 ML DISP.SYRIN SQ SCH ×2 (04:58→10:00)
[2017-04-13 08:09] LABS: BASOPHIL 0.1 % (0-2.0); EOSINOPHIL 0.3 % (0-4.5); MCH 30.5 pg (25.7-33.7); MCHC 33.7 g/dl (32.0-36.0); MEAN CELL VOLUME 90.4 fl (80-96); MEAN PLT VOLUME 8.8 fl (7.5-11.1); NEUTROPHILS 83.2 % (42.8-82.8); PLATELET COUNT 133 K/MM3 (134-434); RDW 13.7 % (11.6-15.6); WHITE BLOOD COUNT 7.3 K/mm3 (4.0-10.0)
[2017-04-13 08:35] LABS: INR 1.38 (0.82-1.09); PROTHROMBIN TIME (PATIENT) 15.3 SEC (9.98-11.88)
[2017-04-13 08:52] LABS: SGOT/AST 60 U/L (15-37); SGPT/ALT 42 U/L (12-78)
[2017-04-13 08:57] LABS: ALBUMIN 1.9 g/dl (3.4-5.0); ALK PHOS 62 U/L (45-117); ANION GAP 10 (8-16); BILIRUBIN,TOTAL 0.7 mg/dL (0.2-1.0); CALCIUM 7.8 mg/dL (8.5-10.1); CO2 22 mmol/L (21-32); CREATININE 0.7 mg/dL (0.55-1.02); GLUCOSE,RANDOM 141 mg/dL (74-106); TOT PROT 4.8 g/dl (6.4-8.2)
--- NOTE | 2017-04-13 10:09 | PN ---
Physical Exam: SUBJECTIVE: Patient seen and examined. Feeling well, pain completely controlled with MANAGER DRUG. No fevers/chills. Asking for clears. OBJECTIVE: Vital Signs Period Temp Pulse Resp BP Sys/Beyer Pulse Ox Last 24 Hr 98.5 F-99.3 F 77-97 12-20 98-143/54-92 94-99 GENERAL: The patient is awake, alert, and fully oriented, in no acute distress. HEAD: Normal with no signs of trauma. EYES: PERRL, extraocular movements intact, sclera anicteric, conjunctiva clear. No ptosis. ENT: Ears normal, nares patent, oropharynx clear without exudates, moist mucous membranes. NECK: Trachea midline, full range of motion, supple. LUNGS: Breath sounds equal, clear to auscultation bilaterally, no wheezes, no crackles, no accessory muscle use. HEART: Regular rate and rhythm, S1, S2 without murmur, rub or gallop. ABDOMEN: Soft, bowel sounds present RUQ. Tender around dressing site. KATT drain approx 40 mL serosanguinous output. EXTREMITIES: 2+ pulses, warm, well-perfused, no edema. NEUROLOGICAL: Cranial nerves II through XII grossly intact. Normal speech, gait not observed. PSYCH: Normal mood, normal affect. SKIN: Warm, dry, normal turgor, no rashes or lesions noted Laboratory Results - last 24 hr 04/13/17 04/13/17 04/13/17 06:30 06:30 06:30 WBC 7.3 RBC 3.47 L Hgb 10.6 L Hct 31.4 L MCV 90.4 MCH 30.5 MCHC 33.7 RDW 13.7 Plt Count 133 L D MPV 8.8 Neutrophils % 83.2 H Lymphocytes % 8.3 D Monocytes % 8.1 Eosinophils % 0.3 Basophils % 0.1 INR 1.38 H Sodium 143 Potassium 4.3 Chloride 111 H Carbon Dioxide 22 Anion Gap 10 BUN 16 Creatinine 0.7 D Creat Clearance w eGFR > 60 Random Glucose 141 H Calcium 7.8 L Total Bilirubin 0.7 D AST 60 H D ALT 42 Alkaline Phosphatase 62 Total Protein 4.8 L Albumin 1.9 L Active Medications Generic Name Dose Route Start Last Admin Trade Name Freq PRN Reason Stop Dose Admin Enoxaparin Sodium 40 mg 04/13/17 10:00 Lovenox - SQ BID MASON Hydromorphone HCl 0 mg 04/12/17 21:53 04/12/17 22:00 Dilaudid Mainframe Analyst - MANAGER DRUG 04/15/17 17:39 0.2 mg MANAGER DRUG MASON Administration Protocol Hydromorphone HCl 0.5 mg 04/12/17 21:53 Dilaudid Injection - IVPUSH 04/15/17 17:39 [id number] PRN PAIN Sodium Chloride 1,000 mls @ 125 mls/hr 04/12/17 21:53 04/13/17 04:33 Normal Saline - IV 125 mls/hr ASDIR MASON Administration Piperacillin Sod/Tazobactam 100 mls @ 200 mls/hr 04/13/17 02:00 04/13/17 01:46 Sod 4.5 gm/ Dextrose IVPB 200 mls/hr Q8H-IV MASON Administration Protocol Imaging CTAP - two studies done on 04/10/17: (1) acute diverticulitis in the mid sigmoid colon; (2) collection/abscess inseparable from thickened dome of the urinary bladder; (3) possible colovesical fistula; (4) possible left-sided hydronephrosis; (5) s/p cholecystectomy ASSESSMENT/PLAN: 36 year-old female admitted with acute diverticulitis, abscess , and possible colovesical fistula. 1. Severe sepsis and bacteremia secondary to acute diverticulitis with abscess and colovesical fistula -POD #1 s/p open sigmoidectomy with takedown of colovesical fistula; unable to place colostomy 2/2 short mesentery and abdominal girth -Blood and urine cultures growing non lactose-fermenting GNB; await speciation -Continue Zosyn today (day #3) -Dilaudid MANAGER DRUG -Keep ernandez in place likely for additional week; needs cystogram prior to removal -Start clears when ok with surgery 2. Prolonged INR -Suspect secondary to severe sepsis -Trending down; follow 3. Elevated bilirubin -Normalized 4. F/E/N -NS 125 mLs/hr -NPO DVT prophylais: SCDs Dispo: Continues to require inpatient care. Full Code. Visit type - Emergency Visit Emergency Visit: Yes ED Registration Date: 04/10/17 Care time: The patient presented to the Emergency Department on the above date and was hospitalized for further evaluation of their emergent condition. - New Patient This patient is new to me today: No - Critical Care Critical Care patient: No - Discharge Referral Referred to [facility] Med P.C.: No
--- NOTE | 2017-04-13 10:22 | OP ---
DATE OF OPERATION: DATE OF DICTATION: 04/12/2017 PROCEDURE: Laparoscopic converted to open sigmoid resection with colorectal anastomosis with takedown of colovesicular fistula with drainage of intraabdominal abscess. SURGEON: Teddy Stone MD FIELD COLLECTOR: Gustavo Melo MD ANESTHESIA: General endotracheal anesthesia. ESTIMATED BLOOD LOSS: 400 mL. OPERATIVE NOTE IN DETAIL: Patient was brought to the operating room after confirming name, date of , and medical record number. She was placed in supine position with SCDs for DVT prophylaxis. She was given appropriate perioperative antibiotics. She was then induced and intubated by the anesthesiologist. She was then prepped and draped in the usual sterile fashion after putting her in lithotomy position. A Jasmine catheter was placed under sterile conditions. A time-out was then performed. A 1-inch supraumbilical incision was made, and I bluntly dissected down to the fascia. Electrocautery was used to go through the fascia, and then, I used a clamp to grab the posterior sheath, and I cut and used my finger to go through the peritoneum. I then placed a 10-mm balloon Yoel type trocar inside the abdomen, insufflated the abdomen to a pressure of 15 mmHg. I then put in the laparoscope and then placed a 12-mm trocar in the right lower quadrant under direct vision. A 5-mm trocar was placed in the right upper quadrant. Another 5-mm trocar was placed in the left hemiabdomen. At this point, the patient was placed in Trendelenburg position. However, we could not use maximal position changes because of her increased airway pressures because of her obesity. At this point, there was some omentum, which was retracted out of the pelvis. However, it was clear that the sigmoid colon was densely fused to the anterior abdominal wall, and at this point, using a combination of mostly blunt dissection with some LigaSure dissection, we were able to take down a very inflamed sigmoid colon off of the anterior abdominal wall, which was suspected to be the colovesicular fistula. We then continued to progress further down in the pelvis by retracting the proximal sigmoid towards the spleen, and there was also some abscess cavity along the left perirectal gutter near the left adnexa. It was noted that anteriorly where the colon was attached to the abdominal wall anteriorly, there was some purulent drainage, and this was suctioned out, and there was some purulent drainage in the left perirectal gutter, as well. There was no free spillage. At this point, we had difficulty determining the distal margin for resection, and because we could not position her properly because of her airway pressure, we attempted to do a hand assist. I made a small lower midline incision, and I was able to create a window of the distal rectum which was thought to be soft and pliable. However, we could not fire the stapler as there was too much omentum on mesentery involved, and therefore, at this point, we just decided to convert to an open operation to facilitate better exposure. 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 With the bowel packed out of the way, we were able to take the proximal and distal margins cleanly with a laparoscopic CASSANDRA 60 stapler, and then, we took the mesentery with LigaSure taking it close to the bowel to avoid any ureteral injury. We then mobilized the left colon off the retroperitoneum and white line of Toldt and then packed away the bowel. At this point, we then attempted to place a stapler up the rectal stump. However, because the rectum was not mobilized, we were not able to, and therefore, I had to mobilize the rectum by taking down the right and left perirectal gutters as well as the peritoneal reflection. This was done very carefully as to avoid any injury to the hoopa rectum, which was healthy and pliable. Once the rectum was completely mobilized, we then turned our attention towards placing a pursestring on the distal descending colon, and there was enough laxity actually to make an anastomosis. Initially, the plan was to give the patient a Nati procedure. However, given her short mesentery, this was thought to be a higher risk procedure than anastomosing her. The plan was the give her a Nati end colostomy and divert. However, because of her short mesentery and very thick abdominal wall, we felt it was a lower risk to do a primary anastomosis. Once we placed the pursestring device, we then placed a 31 EEA anvil and then tied down the suture, and then used tonsil to dissect off the antimesenteric from the staple line. We then placed a stapler up, and then, did a Ortega type anastomosis in the mid rectum because of the short stapler and made it into the anvil. There was no twisting noted, and then, we did a rigid proctoscopy with air insufflation to perform an air leak test, which was negative x2. This was submerged in water, and then insufflated, and there were no bubbles. Once this was complete, we then irrigated out the abdomen, suctioned out any fluid, and ensured perfect hemostasis. We then placed a size 10 KATT drain through the right lower quadrant laparoscopic site trocar and placed it near the anterior abdominal wall as near the left perirectal gutter where the abscess cavities were. At this point, we then draped the omentum on top of the drain, on top of the rectal anastomosis to prevent it from being near the abscess cavity, and we then performed proper count. Of note, we again wanted to do a loop ileostomy for proximal diversion to protect this anastomosis given the patients preoperative bacteremia. However, we were unable to, again, because of the thick abdominal wall and foreshortened mesentery. We even examined her right upper quadrant where it is known to be thinner. However, still, it would have been a higher risk procedure to do an ostomy in this patients body habitus. Therefore, we accepted the primary anastomosis, and then we used a closure tray to close her fascia with No. 1 looped PDS from above and below and tied to itself. The skin and subcutaneous tissues were ensured for hemostasis and reapproximated partially with skin nikki and packed with gauze. The laparoscopic sites were then closed with nikki. An x-ray is being performed as I am dictating this. The Jasmine catheter is to remain for one week, and a completion cystogram will be performed as recommended by the urologist. We will have to continue postoperative antibiotics because the patient had preoperative bacteremia. TEDDY STONE M.D. MORTEZA/[id number]
[2017-04-13] MEDS: ENOXAPARIN NA (PORCINE) 40 MG/0.4 ML DISP.SYRIN SQ SCH ×2 (10:35→21:50)
--- NOTE | 2017-04-13 12:14 | PN ---
Progress Note, Physician History of Present Illness: post op patient stable pain minimal abd soft drainage tube in place - Current Medication List Current Medications: Active Medications Enoxaparin Sodium (Lovenox -) 40 mg SQ BID MASON Last Admin: 04/13/17 10:35 Dose: 40 mg Hydromorphone HCl (Dilaudid Billing Customer Service Representative -) 0 mg DIRECTOR DIABETES DIRECTOR DIABETES MASON PRN Reason: Protocol Stop: 04/15/17 17:39 Last Admin: 04/12/17 22:00 Dose: 0.2 mg Hydromorphone HCl (Dilaudid Injection -) 0.5 mg IVPUSH [id number] PRN PRN Reason: PAIN Stop: 04/15/17 17:39 Sodium Chloride (Normal Saline -) 1,000 mls @ 125 mls/hr IV ASDIR MASON Last Admin: 04/13/17 04:33 Dose: 125 mls/hr Piperacillin Sod/Tazobactam (Sod 4.5 gm/ Dextrose) 100 mls @ 200 mls/hr IVPB Q8H-IV MASON PRN Reason: Protocol Last Admin: 04/13/17 10:35 Dose: 200 mls/hr - Objective Vital Signs: Vital Signs Temperature 98.8 F 04/13/17 06:00 Pulse Rate 84 04/13/17 06:00 Respiratory Rate 20 04/13/17 06:00 Blood Pressure 112/68 04/13/17 06:00 O2 Sat by Pulse Oximetry (%) 98 04/12/17 22:00 Constitutional: Yes: No Distress, Calm Cardiovascular: Yes: Regular Rate and Rhythm Respiratory: Yes: Regular, CTA Bilaterally Gastrointestinal: Yes: Other (drainage tube in place) Genitourinary: Yes: Jasmine Present Musculoskeletal: Yes: WNL Extremities: Yes: WNL Wound/Incision: Yes: Clean/Dry, Dressing Dry and Intact Neurological: Yes: Alert, Oriented Labs: CBC, BMP 04/13/17 06:30 04/13/17 06:30 INR, PTT INR 1.38 (0.82-1.09) H 04/13/17 06:30 Assessment/Plan Problem List - Problem (1) Sepsis Code(s): A41.9 - SEPSIS, UNSPECIFIED ORGANISM (2) Diverticulitis Code(s): K57.92 - DVTRCLI OF INTEST, PART UNSP, W/O PERF OR ABSCESS W/O BLEED Qualifiers: Diverticulitis site: unspecified part of intestinal tract (3) UTI (urinary tract infection) Code(s): N39.0 - URINARY TRACT INFECTION, SITE NOT SPECIFIED (4) colovesical fistula (5) Lactic acidemia Code(s): E87.2 - ACIDOSIS (6) Thrombocytopenia Code(s): D69.6 - THROMBOCYTOPENIA, UNSPECIFIED (7)leukocytosis 8 gm negative bacteremia plan continue zosyn repeat blood cx ordered continue as per surgery
--- NOTE | 2017-04-13 14:36 | PN ---
Progress Note, Physician Chief Complaint: lower abdominal pain History of Present Illness: POD1 s/p laparoscopic converted to open sigmoidectomy with takedown of colovesical fistula Pt seen and examined with Dr. Stone; she is sitting up in chair, comfortable, c/o being thirsty. No fevers or chills, no nausea/vomiting. + burping but no flatus/ BM. She has ambulated in hallway. KATT drain with 25ml out yesterday, 45ml last shift. Jasmine with 700ml out postop until this am. Pain controlled with LEAD DEVELOPER, not using very frequently. - Current Medication List Current Medications: Active Medications Enoxaparin Sodium (Lovenox -) 40 mg SQ BID MASON Last Admin: 04/13/17 10:35 Dose: 40 mg Hydromorphone HCl (Dilaudid Sat Math Tutor -) 0 mg LEAD DEVELOPER LEAD DEVELOPER MASON PRN Reason: Protocol Stop: 04/15/17 17:39 Last Admin: 04/12/17 22:00 Dose: 0.2 mg Hydromorphone HCl (Dilaudid Injection -) 0.5 mg IVPUSH [id number] PRN PRN Reason: PAIN Stop: 04/15/17 17:39 Sodium Chloride (Normal Saline -) 1,000 mls @ 125 mls/hr IV ASDIR MASON Last Admin: 04/13/17 04:33 Dose: 125 mls/hr Piperacillin Sod/Tazobactam (Sod 4.5 gm/ Dextrose) 100 mls @ 200 mls/hr IVPB Q8H-IV MASON PRN Reason: Protocol Last Admin: 04/13/17 10:35 Dose: 200 mls/hr - Objective Vital Signs: Vital Signs Temperature 98.8 F 04/13/17 06:00 Pulse Rate 84 04/13/17 06:00 Respiratory Rate 20 04/13/17 06:00 Blood Pressure 112/68 04/13/17 06:00 O2 Sat by Pulse Oximetry (%) 98 04/12/17 22:00 Intake & Output 04/12/17 04/13/17 04/13/17 23:59 07:59 15:59 Intake Total 500 1225 Output Total 1175 445 Balance -675 780 Intake: IV 500 1125 Normal Saline - 1,000 ml 1125 @ 125 mls/hr IV ASDIR MASON Rx#:[id number] IVPB 100 Oral 0 Output: Drainage 25 45 Right Abdomen 45 Urine 750 400 Jasmine 100 400 Estimated Blood Loss 400 Other: Voiding Method Indwelling Catheter Indwelling Catheter Constitutional: Yes: No Distress, Calm, Obese Eyes: Yes: Conjunctiva Clear, EOM Intact Gastrointestinal: Yes: Soft, Abdomen, Obese, Hypoactive Bowel Sounds, Tenderness (incisional, lower, no R/G), Other (KATT drain RLQ with serosang fluid in bulb). No: Vomiting (no nausea) Genitourinary: Yes: Jasmine Present (light yellow urine) Edema: No Wound/Incision: Yes: Dressing Dry and Intact (on port sites and midline; drain dressing saturated with serosang) Neurological: Yes: Alert, Oriented Labs: CBC, BMP 04/13/17 06:30 04/13/17 06:30 INR, PTT INR 1.38 (0.82-1.09) H 04/13/17 06:30 CMP Sodium 143 mmol/L (136-145) 04/13/17 06:30 Potassium 4.3 mmol/L (3.5-5.1) 04/13/17 06:30 Chloride 111 mmol/L (98-107) H 04/13/17 06:30 Carbon Dioxide 22 mmol/L (21-32) 04/13/17 06:30 Anion Gap 10 (8-16) 04/13/17 06:30 BUN 16 mg/dL (7-18) 04/13/17 06:30 Creatinine 0.7 mg/dL (0.55-1.02) D 04/13/17 06:30 Creat Clearance w eGFR > 60 (>60) 04/13/17 06:30 Random Glucose 141 mg/dL (74-106) H 04/13/17 06:30 Calcium 7.8 mg/dL (8.5-10.1) L 04/13/17 06:30 Total Bilirubin 0.7 mg/dL (0.2-1.0) D 04/13/17 06:30 AST 60 U/L (15-37) H D 04/13/17 06:30 ALT 42 U/L (12-78) 04/13/17 06:30 Alkaline Phosphatase 62 U/L (45-117) 04/13/17 06:30 Total Protein 4.8 g/dl (6.4-8.2) L 04/13/17 06:30 Albumin 1.9 g/dl (3.4-5.0) L 04/13/17 06:30 Microbiology 04/10/17 17:00 Blood - Peripheral Venous Blood Culture - Final Escherichia Coli 04/10/17 17:20 Blood - Peripheral Venous Blood Culture - Final Escherichia Coli 04/10/17 19:40 Urine - Urine Clean Catch Urine Culture - Final Escherichia Coli 04/10/17 16:49 Urine - Urine Clean Catch Urine Culture - Preliminary Non Lactose Fermenting Gnb Lactose Fermenting Neg Bacilli Problem List - Problems (1) Colovesical fistula Assessment/Plan: see below Code(s): N32.1 - VESICOINTESTINAL FISTULA (2) Diverticulitis large intestine w/o perforation or abscess w/o bleeding Assessment/Plan: POD1 s/p sigmoidectomy and colovesical fistula takedown for diverticulitis and fistula E. coli bacteremia - on Zosyn, continue as per ID doing well postop pain controlled on LEAD DEVELOPER no bowel function yet will start ice chips and sips of clears - to go slowly continue KATT drain Jasmine to remain x 1 week for bladder decompression - urology may do cystogram prior to removal will change midline wound packing daily starting tomorrow encourage OOB/ambulation GI/DVT prophylaxis - on bariatric lovenox dose, will add Pepcid will follow Code(s): K57.32 - DVTRCLI OF LG INT W/O PERFORATION OR ABSCESS W/O BLEEDING (3) Bacteremia due to Gram-negative bacteria Assessment/Plan: E. coli - see above Code(s): R78.81 - BACTEREMIA (4) Thrombocytopenia Assessment/Plan: platelets improved, no evidence of bleeding Code(s): D69.6 - THROMBOCYTOPENIA, UNSPECIFIED (5) Morbid (severe) obesity due to excess calories Code(s): E66.01 - MORBID (SEVERE) OBESITY DUE TO EXCESS CALORIES
--- NOTE | 2017-04-13 14:54 | PN ---
Progress Note (short form) - Note Progress Note: ANESTHESIOLOGY POST-OP CHECK 36F S/P lap, converted to open sigmoid resection under general anesthesia, POD # 2. Pain 0/10. Ambulating, denies N/V. Vital Signs Temperature 98.8 F 04/13/17 06:00 Pulse Rate 84 04/13/17 06:00 Respiratory Rate 20 04/13/17 06:00 Blood Pressure 112/68 04/13/17 06:00 O2 Sat by Pulse Oximetry (%) 98 04/13/17 09:00 Active Medications Enoxaparin Sodium (Lovenox -) 40 mg SQ BID MASON Last Admin: 04/13/17 10:35 Dose: 40 mg Hydromorphone HCl (Dilaudid Infertility Medical Assistant -) 0 mg TICK ERADICATOR TICK ERADICATOR MASON PRN Reason: Protocol Stop: 04/15/17 17:39 Last Admin: 04/12/17 22:00 Dose: 0.2 mg Hydromorphone HCl (Dilaudid Injection -) 0.5 mg IVPUSH [id number] PRN PRN Reason: PAIN Stop: 04/15/17 17:39 Sodium Chloride (Normal Saline -) 1,000 mls @ 125 mls/hr IV ASDIR MASON Last Admin: 04/13/17 04:33 Dose: 125 mls/hr Piperacillin Sod/Tazobactam (Sod 4.5 gm/ Dextrose) 100 mls @ 200 mls/hr IVPB Q8H-IV MASON PRN Reason: Protocol Last Admin: 04/13/17 10:35 Dose: 200 mls/hr Gen: awake, alert No apparent anesthesia complications. Pain controlled. Continue TICK ERADICATOR while NPO.
[2017-04-13] MEDS: SODIUM CHLORIDE 0.45% 1,000 ML IV SCH (18:14)
[2017-04-13] MEDS: FAMOTIDINE 20 MG/50 ML IVPB 50 ML IVPB SCH (21:50)
[2017-04-14] MEDS ORDERED: DEXTROSE 5%-WATER 100 ML IVPB ONE ×3 (00:55→17:22)
[2017-04-14] MEDS ORDERED: PIPERACILLIN/TAZOBACTAM 4.5 GM VIAL IVPB ONE ×3 (00:55→17:22)
[2017-04-14] MEDS: PIPERACILLIN/TAZOB 4.5 GM 4.5 GM in DEXTROSE 5%-WATER 100 ML IVPB SCH ×3 (01:48→17:26)
[2017-04-14] MEDS: SODIUM CHLORIDE 0.45% 1,000 ML IV SCH ×3 (01:49→17:20)
[2017-04-14] MEDS: HYDROmorphone *PCA* 10MG/50ML DISP.SYRIN PCA SCH (02:54)
[2017-04-14] MEDS ORDERED: HYDROmorphone *PCA* 10MG/50ML DISP.SYRIN PCA ONE (05:20)
[2017-04-14 07:38] LABS: MCH 30.1 pg (25.7-33.7); MCHC 33.3 g/dl (32.0-36.0); MEAN CELL VOLUME 90.2 fl (80-96); MEAN PLT VOLUME 8.4 fl (7.5-11.1); PLATELET COUNT 156 K/MM3 (134-434); RDW 13.9 % (11.6-15.6); WHITE BLOOD COUNT 5.7 K/mm3 (4.0-10.0)
[2017-04-14 08:07] LABS: ALBUMIN 1.8 g/dl (3.4-5.0); ALK PHOS 64 U/L (45-117); ANION GAP 10 (8-16); BILIRUBIN,TOTAL 0.9 mg/dL (0.2-1.0); CALCIUM 7.6 mg/dL (8.5-10.1); CO2 23 mmol/L (21-32); CREATININE 0.8 mg/dL (0.55-1.02); GLUCOSE,RANDOM 118 mg/dL (74-106); SGOT/AST 47 U/L (15-37); SGPT/ALT 40 U/L (12-78); TOT PROT 4.8 g/dl (6.4-8.2)
[2017-04-14] MEDS: ENOXAPARIN NA (PORCINE) 40 MG/0.4 ML DISP.SYRIN SQ SCH ×2 (10:34→21:47)
[2017-04-14] MEDS: FAMOTIDINE 20 MG/50 ML IVPB 50 ML IVPB SCH ×2 (10:35→21:47)
--- NOTE | 2017-04-14 10:39 | PN ---
Progress Note (short form) - Note Progress Note: Post op day#2.Patient stable has pain score of 4-5/10 but only used 1.6mg of dilaudid overnight.So will dc TECHNOLOGIST DEVELOPMENT and put patient on dilaudid prn.No any anesthesia related problem.Patient DC from the anesthesia care.
[2017-04-14 11:06] LABS: METAMYELOCYTE 2 % (0-2)
[2017-04-14 11:07] LABS: PLATELET ESTIMATE ADEQUATE (NORMAL)
--- NOTE | 2017-04-14 11:33 | PN ---
Progress Note, Physician Chief Complaint: lower abdominal pain History of Present Illness: POD2 s/p laparoscopic converted to open sigmoidectomy with takedown of colovesical fistula Pt seen and examined in chair and in bed, comfortable, pain 3/10. No fevers or chills, no nausea/vomiting. + burping but no flatus/BM yet - she feels like flatus is coming. She has ambulated in hallway. KATT drain with 70ml out yesterday , 75ml last shift. Not using BILINGUAL ACCOUNT MANAGER much - to be d/c'd this am with prn dilaudid ordered by anes. Pain with coughing, but getting up some phlegm. Using IS, gets to about 2500. - Current Medication List Current Medications: Active Medications Enoxaparin Sodium (Lovenox -) 40 mg SQ BID [facility] Last Admin: 04/14/17 10:34 Dose: 40 mg Hydromorphone HCl (Dilaudid Injection -) 1 mg IVPB Q4H PRN PRN Reason: PAIN Piperacillin Sod/Tazobactam (Sod 4.5 gm/ Dextrose) 100 mls @ 200 mls/hr IVPB Q8H-IV MASON PRN Reason: Protocol Last Admin: 04/14/17 01:48 Dose: 200 mls/hr Famotidine/Sodium Chloride (Pepcid 20 Mg Premixed Ivpb -) 50 mls @ 100 mls/hr IVPB BID [facility] Last Admin: 04/14/17 10:35 Dose: 100 mls/hr Sodium Chloride (1/2 Normal Saline) 1,000 mls @ 125 mls/hr IV ASDIR [facility] Last Admin: 04/14/17 10:36 Dose: 125 mls/hr - Objective Vital Signs: Vital Signs Temperature 98.6 F 04/14/17 10:48 Pulse Rate 96 H 04/14/17 10:48 Respiratory Rate 20 04/14/17 10:48 Blood Pressure 122/76 04/14/17 10:48 O2 Sat by Pulse Oximetry (%) 98 04/13/17 21:00 Intake & Output 04/13/17 04/14/17 04/14/17 23:59 07:59 15:59 Intake Total 50 1375 Output Total 700 775 Balance -650 600 Intake: IV 1375 Normal Saline - 1,000 ml 1375 @ 125 mls/hr IV ASDIR [facility] Rx#:[id number] IVPB 50 Output: Drainage 75 Right Abdomen 75 Urine 700 700 Jasmine 700 700 Other: Voiding Method Indwelling Catheter Constitutional: Yes: No Distress, Calm, Obese Neck: No: Rigid Cardiovascular: Yes: Tachycardia. No: Pulse Irregular Respiratory: Yes: Regular, CTA Bilaterally Gastrointestinal: Yes: Soft, Abdomen, Obese, Hypoactive Bowel Sounds, Tenderness (mainly incisional at midline, some LLQ, no R/G) Genitourinary: Yes: Jasmine Present (light yellow urine) Edema: No Integumentary: Yes: Incision Wound/Incision: Yes: Dressing Dry and Intact (over lateral two port sites; drain dressing saturated with yellow/serosang drainage - changed for new dressing), Dressing Removed (midline dressing removed - areas between nikki repacked with saline-dampened 2" roll gauze, recovered with gauze and ABD), Unapproximated (in four areas at midline, nikki otherwise intact) Neurological: Yes: Alert, Oriented Labs: CBC, BMP 04/14/17 06:50 04/14/17 07:00 Problem List - Problems (1) Colovesical fistula Assessment/Plan: see below Code(s): N32.1 - VESICOINTESTINAL FISTULA (2) Diverticulitis large intestine w/o perforation or abscess w/o bleeding Assessment/Plan: POD2 s/p sigmoidectomy and colovesical fistula takedown for diverticulitis and fistula sensitive E. coli bacteremia and in urine - on Zosyn, continue as per ID doing well postop pain controlled - will add Tylenol po and leave dilaudid prn no bowel function yet tolerating ice chips and sips of clears - ok to continue clears slowly/small amounts continue KATT drain Jasmine to remain x 1 week for bladder decompression - urology may do cystogram prior to removal will change midline wound packing daily can change drain site dressing prn to keep dry encourage OOB/ambulation GI/DVT prophylaxis - on bariatric lovenox dose and Pepcid will follow Code(s): K57.32 - DVTRCLI OF LG INT W/O PERFORATION OR ABSCESS W/O BLEEDING (3) Bacteremia due to Gram-negative bacteria Assessment/Plan: E. coli - see above Code(s): R78.81 - BACTEREMIA (4) Thrombocytopenia Assessment/Plan: platelets improved, no evidence of bleeding Code(s): D69.6 - THROMBOCYTOPENIA, UNSPECIFIED (5) Morbid (severe) obesity due to excess calories Code(s): E66.01 - MORBID (SEVERE) OBESITY DUE TO EXCESS CALORIES
[2017-04-14] MEDS ORDERED: ACETAMINOPHEN 500 MG TABLET (FP) PO PRN (11:40)
--- NOTE | 2017-04-14 12:59 | PN ---
Progress Note, Physician History of Present Illness: patient says pain is better still no flatus yet burping decreasing drainage serosanginous from the drains - Current Medication List Current Medications: Active Medications Acetaminophen (Tylenol -) 1,000 mg PO Q6H PRN PRN Reason: FEVER OR PAIN Enoxaparin Sodium (Lovenox -) 40 mg SQ BID [facility] Last Admin: 04/14/17 10:34 Dose: 40 mg Hydromorphone HCl (Dilaudid Injection -) 1 mg IVPB Q4H PRN PRN Reason: PAIN Piperacillin Sod/Tazobactam (Sod 4.5 gm/ Dextrose) 100 mls @ 200 mls/hr IVPB Q8H-IV [facility] PRN Reason: Protocol Last Admin: 04/14/17 11:41 Dose: 200 mls/hr Famotidine/Sodium Chloride (Pepcid 20 Mg Premixed Ivpb -) 50 mls @ 100 mls/hr IVPB BID [facility] Last Admin: 04/14/17 10:35 Dose: 100 mls/hr Sodium Chloride (1/2 Normal Saline) 1,000 mls @ 125 mls/hr IV ASDIR [facility] Last Admin: 04/14/17 10:36 Dose: 125 mls/hr - Objective Vital Signs: Vital Signs Temperature 98.6 F 04/14/17 10:48 Pulse Rate 96 H 04/14/17 10:48 Respiratory Rate 20 04/14/17 10:48 Blood Pressure 122/76 04/14/17 10:48 O2 Sat by Pulse Oximetry (%) 98 04/13/17 21:00 Constitutional: Yes: Calm, Mild Distress, Obese Cardiovascular: Yes: Regular Rate and Rhythm Respiratory: Yes: Regular, CTA Bilaterally Gastrointestinal: Yes: Soft, Hypoactive Bowel Sounds, Other (drains in place) Musculoskeletal: Yes: WNL Extremities: Yes: WNL Neurological: Yes: Alert, Oriented Psychiatric: Yes: Alert Labs: CBC, BMP 04/14/17 06:50 04/14/17 07:00 INR, PTT INR 1.38 (0.82-1.09) H 04/13/17 06:30 Assessment/Plan Problem List - Problem (1) Sepsis Code(s): A41.9 - SEPSIS, UNSPECIFIED ORGANISM (2) Diverticulitis Code(s): K57.92 - DVTRCLI OF INTEST, PART UNSP, W/O PERF OR ABSCESS W/O BLEED Qualifiers: Diverticulitis site: unspecified part of intestinal tract (3) UTI (urinary tract infection) Code(s): N39.0 - URINARY TRACT INFECTION, SITE NOT SPECIFIED (4) colovesical fistula (5) Lactic acidemia Code(s): E87.2 - ACIDOSIS (6) Thrombocytopenia Code(s): D69.6 - THROMBOCYTOPENIA, UNSPECIFIED (7)leukocytosis 8 gm negative bacteremia plan continue zosyn await for repeat blood cx rest as per primary rest continue current mgmt
[2017-04-14] MEDS: HYDROmorphone HCL CARPU-JECT 1 MG/1 ML DISP.SYRIN IVPB PRN ×2 (13:25→18:30)
--- NOTE | 2017-04-14 14:24 | PATH ---
Surgical Pathology Report Patient Name: JEFFRY DAVID Med. Rec. #: [id number] /Age/Gender: 1980 (Age: 36) / F Account: [id number] Location: [facility] MED/SURG Taken: 04/12/2017 Received: 04/13/2017 Reported: 04/14/2017 Physicians: Negrito Stone MD Specimen(s) Received A: SIGMOID COLON B: ANASTOMOSIS DOUGHNUT X2 Clinical History Diverticulitis of intestine fistula Final Diagnosis A. COLON, SIGMOID, SEGMENTAL RESECTION: DIVERTICULOSIS WITH PERICOLIC ABSCESS FORMATION AND AREAS OF PERICOLIC FIBROSIS SUGGESTIVE OF PRIOR PERFORATION. B. COLON, ANASTOMOTIC DONUTS, EXCISION: PORTIONS OF BENIGN COLONIC WALL. Electronically Signed Bubba Shah M.D. Gross Description A. Received in formalin labeled "sigmoid colon," is a 12 cm in length portion of colon with 2 stapled the mucosal margins and moderate attached, firm fat. The serosa is mulligan newman with attached exudate. The mucosa is pink-mulligan with normal folds. No mucosal masses are identified. Sectioning reveals a focal possible abscess cavity. Additionally, there are multiple uncomplicated diverticula present. Vice President Of Development sections are submitted in 10 cassettes as follows: 3-0-[id number] stapled the mucosal margins; 3-4-abscess cavity; 9-66-[id number] field marketing representative diverticula. B. Received in formalin labeled "anastomosis donut," are 2 mulligan, annular, unremarkable portions of bowel with staple lines, averaging 1.7 cm in diameter. One of the portions is attached to a funes metallic surgical device. No lesions are identified. Vice President Of Development sections are submitted in 2 cassettes as follows: 1-portion of bowel attached to surgical device; 2-separately received portion of bowel. /04/13/201704/13/2017
--- NOTE | 2017-04-14 15:58 | PN ---
Physical Exam: SUBJECTIVE: Patient seen and examined and bedside. Had episode of watery diarrhea today. FORGE TENDER is off, has no complaint of pain. Tolerating clears. OBJECTIVE: Vital Signs Period Temp Pulse Resp BP Sys/Beyer Pulse Ox Last 24 Hr 97.3 F-100.5 F 84-100 18-20 98-136/57-79 97-98 GENERAL: The patient is awake, alert, and fully oriented, in no acute distress. HEAD: Normal with no signs of trauma. EYES: PERRL, extraocular movements intact, sclera anicteric, conjunctiva clear. No ptosis. LUNGS: Breath sounds equal, clear to auscultation bilaterally, no wheezes, no crackles, no accessory muscle use. HEART: Regular rate and rhythm, S1, S2 without murmur, rub or gallop. ABDOMEN: Diffusely tender, patient would not allow palpation or removal of surgical dressings which were c/d/i; KATT drain serosanguinous output ~150mL over past 24 hours EXTREMITIES: 2+ pulses, warm, well-perfused, no edema. NEUROLOGICAL: Cranial nerves II through XII grossly intact. Normal speech, gait not observed. Moving all extremities freely Laboratory Results - last 24 hr 04/14/17 04/14/17 06:50 07:00 WBC 5.7 RBC 3.48 L Hgb 10.5 L Hct 31.4 L MCV 90.2 MCH 30.1 MCHC 33.3 RDW 13.9 Plt Count 156 MPV 8.4 Neutrophils % 78.0 Lymphocytes % 12.0 D Monocytes % 5.0 Eosinophils % 2.0 D Basophils % 1.0 D Metamyelocytes 2 Differential Comment Manual diff done Platelet Estimate Adequate Sodium 143 Potassium 3.6 Chloride 110 H Carbon Dioxide 23 Anion Gap 10 BUN 15 Creatinine 0.8 Creat Clearance w eGFR > 60 Random Glucose 118 H Calcium 7.6 L Total Bilirubin 0.9 D AST 47 H D ALT 40 Alkaline Phosphatase 64 Total Protein 4.8 L Albumin 1.8 L Active Medications Generic Name Dose Route Start Last Admin Trade Name Freq PRN Reason Stop Dose Admin Acetaminophen 1,000 mg 04/14/17 11:40 Tylenol - PO Q6H PRN FEVER OR PAIN Enoxaparin Sodium 40 mg 04/13/17 10:00 04/14/17 10:34 Lovenox - SQ 40 mg BID [facility] Administration Hydromorphone HCl 1 mg 04/14/17 10:40 04/14/17 13:25 Dilaudid Injection - IVPB 1 mg Q4H PRN Administration PAIN Piperacillin Sod/Tazobactam 100 mls @ 200 mls/hr 04/13/17 02:00 04/14/17 11:41 Sod 4.5 gm/ Dextrose IVPB 200 mls/hr Q8H-IV [facility] Administration Protocol Famotidine/Sodium Chloride 50 mls @ 100 mls/hr 04/13/17 22:00 04/14/17 10:35 Pepcid 20 Mg Premixed Ivpb - IVPB 100 mls/hr BID [facility] Administration Sodium Chloride 1,000 mls @ 125 mls/hr 04/13/17 15:00 04/14/17 10:36 1/2 Normal Saline IV 125 mls/hr ASDIR [facility] Administration Imaging CTAP - two studies done on 04/10/17: (1) acute diverticulitis in the mid sigmoid colon; (2) collection/abscess inseparable from thickened dome of the urinary bladder; (3) possible colovesical fistula; (4) possible left-sided hydronephrosis; (5) s/p cholecystectomy ASSESSMENT/PLAN 36 year-old female with a PMH significant for diverticulitis and s/p cholecystectomy. Admitted for acute diverticulitis, abscess, and possible colovesical fistula. Severe sepsis secondary to acute diverticulitis with abscess and colovesical fistula s/p open sigmoidectomy with takedown of colovesical fistula E. coli bacteremia --Tm 100.5, pulse 90s, WBC trended down to wnl --continue Zosyn today (day #3) --ernandez in place, plan is to keep in place for another week, will need cystoscopy to assess repaired fistula Elevated bilirubin, resolved E. coli UTI Possible bilateral hydronephrosis --continue Zosyn --renal function is stable, will continue to monitor F/E/N Fluids: PO intake adequate Electrolytes: replete as indicated Nutrition: clears DVT prophylais: oob, ambulation; lovenox Dispo: continues to require inpatient care. Full Code. Visit type - Emergency Visit Emergency Visit: Yes ED Registration Date: 04/10/17 Care time: The patient presented to the Emergency Department on the above date and was hospitalized for further evaluation of their emergent condition. - New Patient This patient is new to me today: No - Critical Care Critical Care patient: No
[2017-04-15] MEDS ORDERED: PIPERACILLIN/TAZOBACTAM 4.5 GM VIAL IVPB ONE ×3 (01:16→17:39)
[2017-04-15] MEDS ORDERED: DEXTROSE 5%-WATER 100 ML IVPB ONE ×3 (01:16→17:39)
[2017-04-15] MEDS: PIPERACILLIN/TAZOB 4.5 GM 4.5 GM in DEXTROSE 5%-WATER 100 ML IVPB SCH ×3 (02:06→18:04)
[2017-04-15] MEDS: HYDROmorphone HCL CARPU-JECT 1 MG/1 ML DISP.SYRIN IVPB PRN (02:27)
[2017-04-15 07:32] LABS: MCH 30.4 pg (25.7-33.7); MCHC 33.8 g/dl (32.0-36.0); MEAN PLT VOLUME 8.2 fl (7.5-11.1); PLATELET COUNT 179 K/MM3 (134-434); RDW 13.6 % (11.6-15.6); WHITE BLOOD COUNT 7.3 K/mm3 (4.0-10.0)
[2017-04-15 07:55] LABS: ALBUMIN 1.8 g/dl (3.4-5.0); ANION GAP 7 (8-16); CALCIUM 7.7 mg/dL (8.5-10.1); CO2 27 mmol/L (21-32); GLUCOSE,RANDOM 113 mg/dL (74-106); MAGNESIUM 1.6 mg/dL (1.8-2.4)
[2017-04-15 07:59] LABS: ALK PHOS 66 U/L (45-117); BILIRUBIN,TOTAL 0.6 mg/dL (0.2-1.0); CREATININE 0.6 mg/dL (0.55-1.02); PHOSPHOROUS 2.9 mg/dL (2.5-4.9); SGOT/AST 33 U/L (15-37); SGPT/ALT 34 U/L (12-78); TOT PROT 4.9 g/dl (6.4-8.2)
--- NOTE | 2017-04-15 08:35 | PN ---
Physical Exam: SUBJECTIVE: Patient seen and examined oob to chair. OBJECTIVE: Vital Signs Period Temp Pulse Resp BP Sys/Beyer Pulse Ox Last 24 Hr 97.5 F-100.2 F 79-96 18-20 122-146/74-83 97-97 GENERAL: The patient is awake, alert, and fully oriented, in no acute distress. HEAD: Normal with no signs of trauma. EYES: PERRL, extraocular movements intact, sclera anicteric, conjunctiva clear. No ptosis. LUNGS: Breath sounds equal, clear to auscultation bilaterally, no wheezes, no crackles, no accessory muscle use. HEART: Regular rate and rhythm, S1, S2 without murmur, rub or gallop. ABDOMEN: surgical dressings c/d/i; KATT drain serosanguinous output ~90mL over past 24 hours EXTREMITIES: 2+ pulses, warm, well-perfused, no edema. NEUROLOGICAL: Cranial nerves II through XII grossly intact. Normal speech, gait not observed. Moving all extremities freely Laboratory Results - last 24 hr 04/14/17 04/15/17 06:50 06:30 WBC 5.7 7.3 RBC 3.48 L 3.67 Hgb 10.5 L 11.2 Hct 31.4 L 33.1 MCV 90.2 90.0 MCH 30.1 30.4 MCHC 33.3 33.8 RDW 13.9 13.6 Plt Count 156 179 MPV 8.4 8.2 Neutrophils % 78.0 Y Lymphocytes % 12.0 D Y Monocytes % 5.0 Eosinophils % 2.0 D Basophils % 1.0 D Metamyelocytes 2 Differential Comment Manual diff done Platelet Estimate Adequate Active Medications Generic Name Dose Route Start Last Admin Trade Name Freq PRN Reason Stop Dose Admin Acetaminophen 1,000 mg 04/14/17 11:40 04/14/17 21:46 Tylenol - PO 1,000 mg Q6H PRN Administration FEVER OR PAIN Enoxaparin Sodium 40 mg 04/13/17 10:00 04/14/17 21:47 Lovenox - SQ 40 mg BID [facility] Administration Hydromorphone HCl 1 mg 04/14/17 10:40 04/15/17 02:27 Dilaudid Injection - IVPB 1 mg Q4H PRN Administration PAIN Piperacillin Sod/Tazobactam 100 mls @ 200 mls/hr 04/13/17 02:00 04/15/17 02:06 Sod 4.5 gm/ Dextrose IVPB 200 mls/hr Q8H-IV [facility] Administration Protocol Famotidine/Sodium Chloride 50 mls @ 100 mls/hr 04/13/17 22:00 04/14/17 21:47 Pepcid 20 Mg Premixed Ivpb - IVPB 100 mls/hr BID [facility] Administration Imaging CTAP - two studies done on 04/10/17: (1) acute diverticulitis in the mid sigmoid colon; (2) collection/abscess inseparable from thickened dome of the urinary bladder; (3) possible colovesical fistula; (4) possible left-sided hydronephrosis; (5) s/p cholecystectomy ASSESSMENT/PLAN 36 year-old female with a PMH significant for diverticulitis and s/p cholecystectomy. Admitted for acute diverticulitis, abscess, and colovesical fistula. Severe sepsis secondary to acute diverticulitis with abscess and colovesical fistula s/p open sigmoidectomy with takedown of colovesical fistula E. coli bacteremia --Tm 100.2, WBC wnl --continue Zosyn today (day #4) --ernandez in place, plan is to keep in place for another week, will need cystoscopy to assess repaired fistula --pain has been an issue; change regimen to Calador IV 600mg q8h standing; oxycodone PRN, tylenol PRN Elevated bilirubin, resolved E. coli UTI Possible bilateral hydronephrosis --continue Zosyn --renal function is stable, will continue to monitor F/E/N Fluids: PO intake adequate Electrolytes: replete as indicated Nutrition: clears DVT prophylais: oob, ambulation; lovenox Dispo: continues to require inpatient care. Full Code. Visit type - Emergency Visit Emergency Visit: Yes ED Registration Date: 04/10/17 Care time: The patient presented to the Emergency Department on the above date and was hospitalized for further evaluation of their emergent condition. - New Patient This patient is new to me today: No - Critical Care Critical Care patient: No
[2017-04-15] MEDS: FAMOTIDINE 20 MG/50 ML IVPB 50 ML IVPB SCH (10:53)
[2017-04-15] MEDS: ENOXAPARIN NA (PORCINE) 40 MG/0.4 ML DISP.SYRIN SQ SCH ×2 (10:54→22:22)
--- NOTE | 2017-04-15 11:00 | PN ---
Progress Note, Physician Chief Complaint: lower abdominal pain History of Present Illness: POD3 s/p laparoscopic converted to open sigmoidectomy with takedown of colovesical fistula Pt seen and examined in bed, no sig pain now but has had pain up to 8-10 in suprapubic area relieved by Dilaudid, mostly first thing in the morning. No fevers or chills, no nausea/vomiting. She is having flatus and has had several loose bowel movements. She has ambulated in hallway. KATT drain with 115ml out yesterday, 80ml last shift. Drain site dressing is being changed as needed. Tolerating clear liquids. Noticed some wheezing with expiration but no SOB. Able to cough and get up some sputum. Getting hungry. - Current Medication List Current Medications: Active Medications Acetaminophen (Tylenol -) 1,000 mg PO Q6H PRN PRN Reason: FEVER OR PAIN Last Admin: 04/14/17 21:46 Dose: 1,000 mg Enoxaparin Sodium (Lovenox -) 40 mg SQ BID [facility] Last Admin: 04/15/17 10:54 Dose: 40 mg Hydromorphone HCl (Dilaudid Injection -) 1 mg IVPB Q4H PRN PRN Reason: PAIN Last Admin: 04/15/17 02:27 Dose: 1 mg Piperacillin Sod/Tazobactam (Sod 4.5 gm/ Dextrose) 100 mls @ 200 mls/hr IVPB Q8H-IV [facility] PRN Reason: Protocol Last Admin: 04/15/17 02:06 Dose: 200 mls/hr Famotidine/Sodium Chloride (Pepcid 20 Mg Premixed Ivpb -) 50 mls @ 100 mls/hr IVPB BID [facility] Last Admin: 04/15/17 10:53 Dose: 100 mls/hr - Objective Vital Signs: Vital Signs Temperature 98.5 F 04/15/17 06:54 Pulse Rate 79 04/15/17 06:54 Respiratory Rate 20 04/15/17 06:54 Blood Pressure 146/75 04/15/17 06:54 O2 Sat by Pulse Oximetry (%) 97 04/14/17 21:00 Intake & Output 04/14/17 04/15/17 04/15/17 23:59 07:59 15:59 Intake Total 1200 Output Total 1910 430 Balance -710 -430 Intake: IV 1000 1/2 Normal Saline 1,000 1000 ml @ 125 mls/hr IV ASDIR [facility] Rx#:[id number] IVPB 200 Output: Drainage 10 80 Right Abdomen 10 80 Urine 1900 350 Jasmine 1900 350 Other: Voiding Method Indwelling Catheter Indwelling Catheter Bowel Movement Yes: diarrhea # Bowel Movements 3 Constitutional: Yes: No Distress, Calm, Obese Cardiovascular: Yes: Regular Rate and Rhythm. No: Murmur Respiratory: Yes: Regular, CTA Bilaterally, Wheezes (faint end-expiratory bilaterally, L>R - clears with coughing) Gastrointestinal: Yes: Soft, Abdomen, Obese, Hypoactive Bowel Sounds, Tenderness (suprapubic, less LLQ, no R/G), Other (KATT RLQ turning from serosanguineous to serous) Genitourinary: Yes: Jasmine Present (light yellow urine) Extremities: No: Cool, Cyanosis Edema: No Integumentary: Yes: Incision (midline), Tattoos Wound/Incision: Yes: Meghan Intact, Dressing Dry and Intact (x2 on port sites - removed; drain dressing with yellow saturation, changed for new gauze), Dressing Removed, Unapproximated (x4 areas in midline - 2" roll gauze removed and used to lightly repack wounds to base). No: Reddened Neurological: Yes: Alert, Oriented. No: Unsteady Gait Labs: CBC, BMP 04/15/17 06:30 04/15/17 06:30 CMP Sodium 142 mmol/L (136-145) 04/15/17 06:30 Potassium 3.5 mmol/L (3.5-5.1) 04/15/17 06:30 Chloride 108 mmol/L (98-107) H 04/15/17 06:30 Carbon Dioxide 27 mmol/L (21-32) 04/15/17 06:30 Anion Gap 7 (8-16) L 04/15/17 06:30 BUN 7 mg/dL (7-18) D 04/15/17 06:30 Creatinine 0.6 mg/dL (0.55-1.02) D 04/15/17 06:30 Creat Clearance w eGFR > 60 (>60) 04/15/17 06:30 Random Glucose 113 mg/dL (74-106) H 04/15/17 06:30 Calcium 7.7 mg/dL (8.5-10.1) L 04/15/17 06:30 Phosphorus 2.9 mg/dL (2.5-4.9) 04/15/17 06:30 Magnesium 1.6 mg/dL (1.8-2.4) L 04/15/17 06:30 Total Bilirubin 0.6 mg/dL (0.2-1.0) D 04/15/17 06:30 AST 33 U/L (15-37) D 04/15/17 06:30 ALT 34 U/L (12-78) 04/15/17 06:30 Alkaline Phosphatase 66 U/L (45-117) 04/15/17 06:30 Total Protein 4.9 g/dl (6.4-8.2) L 04/15/17 06:30 Albumin 1.8 g/dl (3.4-5.0) L 04/15/17 06:30 Problem List - Problems (1) Colovesical fistula Assessment/Plan: see below Code(s): N32.1 - VESICOINTESTINAL FISTULA (2) Diverticulitis large intestine w/o perforation or abscess w/o bleeding Assessment/Plan: POD3 s/p sigmoidectomy and colovesical fistula takedown for diverticulitis and fistula sensitive E. coli bacteremia and in urine - on Zosyn, continue as per ID doing well postop pain controlled - encourage po pain med regimen with IV for breakthrough only + bowel function, tolerating clears - will advance to full liquids today IV fluids stopped - Penelope Adan aware of wheezing, will monitor continue KATT drain - may need home care to learn daily care/emptying/recording of drainage Jasmine to remain x 1 week for bladder decompression - urology planning cystogram prior to removal home care on d/c to ensure she can learn Jasmine catheter care midline wound packing changed - will need home care for daily wound packing with 2" roll gauze to base of wounds can change drain site dressing prn to keep dry encourage OOB/ambulation GI/DVT prophylaxis - on bariatric lovenox dose and Pepcid (change to po) will follow Code(s): K57.32 - DVTRCLI OF LG INT W/O PERFORATION OR ABSCESS W/O BLEEDING (3) Bacteremia due to Gram-negative bacteria Assessment/Plan: E. coli - see above Code(s): R78.81 - BACTEREMIA (4) Thrombocytopenia Assessment/Plan: RESOLVED Code(s): D69.6 - THROMBOCYTOPENIA, UNSPECIFIED (5) Morbid (severe) obesity due to excess calories Code(s): E66.01 - MORBID (SEVERE) OBESITY DUE TO EXCESS CALORIES
[2017-04-15] MEDS ORDERED: ACETAMINOPHEN 325 MG TABLET (FP) PO PRN ×2 (11:17→13:52)
[2017-04-15 11:19] LABS: PLATELET ESTIMATE ADEQUATE (NORMAL)
[2017-04-15] MEDS ORDERED: OXYCODONE/APAP 5/325MG COMBO TABLET PO PRN ×2 (11:20→13:48)
[2017-04-15] MEDS ORDERED: IBUPROFEN 600 MG TABLET (FP) PO PRN (11:21)
[2017-04-15] MEDS ORDERED: HYDROmorphone HCL CARPU-JECT 1 MG/1 ML DISP.SYRIN IVPB PRN (11:24)
--- NOTE | 2017-04-15 12:30 | PN ---
Progress Note, Physician History of Present Illness: improving pain main issues passing flatus - Current Medication List Current Medications: Active Medications Acetaminophen (Tylenol -) 650 mg PO Q6H PRN PRN Reason: FEVER OR PAIN Enoxaparin Sodium (Lovenox -) 40 mg SQ BID [facility] Last Admin: 04/15/17 10:54 Dose: 40 mg Hydromorphone HCl (Dilaudid Injection -) 1 mg IVPB Q4H PRN PRN Reason: SEVERE PAIN Piperacillin Sod/Tazobactam (Sod 4.5 gm/ Dextrose) 100 mls @ 200 mls/hr IVPB Q8H-IV [facility] PRN Reason: Protocol Last Admin: 04/15/17 12:15 Dose: 200 mls/hr Ibuprofen (Motrin -) 600 mg PO Q6H PRN PRN Reason: PAIN Last Admin: 04/15/17 12:19 Dose: 600 mg Oxycodone/Acetaminophen (Percocet 5/325 -) 2 combo PO Q6H PRN PRN Reason: PAIN LEVEL 6-10 Ranitidine HCl (Zantac -) 150 mg PO BID [facility] - Objective Vital Signs: Vital Signs Temperature 99.8 F H 04/15/17 09:30 Pulse Rate 85 04/15/17 09:30 Respiratory Rate 16 04/15/17 09:30 Blood Pressure 136/77 04/15/17 09:30 O2 Sat by Pulse Oximetry (%) 97 04/14/17 21:00 Constitutional: Yes: Calm, Mild Distress, Obese Cardiovascular: Yes: Regular Rate and Rhythm Respiratory: Yes: Regular, CTA Bilaterally Gastrointestinal: Yes: Soft, Other (draiange tube in place) Musculoskeletal: Yes: WNL Extremities: Yes: WNL Wound/Incision: Yes: Clean/Dry Neurological: Yes: Alert, Oriented Psychiatric: Yes: Alert Labs: CBC, BMP 04/15/17 06:30 04/15/17 06:30 INR, PTT INR 1.38 (0.82-1.09) H 04/13/17 06:30 Assessment/Plan Problem List - Problem (1) Sepsis Code(s): A41.9 - SEPSIS, UNSPECIFIED ORGANISM (2) Diverticulitis Code(s): K57.92 - DVTRCLI OF INTEST, PART UNSP, W/O PERF OR ABSCESS W/O BLEED Qualifiers: Diverticulitis site: unspecified part of intestinal tract (3) UTI (urinary tract infection) Code(s): N39.0 - URINARY TRACT INFECTION, SITE NOT SPECIFIED (4) colovesical fistula (5) Lactic acidemia Code(s): E87.2 - ACIDOSIS (6) Thrombocytopenia Code(s): D69.6 - THROMBOCYTOPENIA, UNSPECIFIED (7)leukocytosis 8 gm negative bacteremia plan continue zosyn repeat blood cx negative so far
[2017-04-15] MEDS ORDERED: oxyCODONE HCL 5 MG TABLET PO PRN (13:52)
[2017-04-15] MEDS ORDERED: OXYCODONE/APAP 5/325MG COMBO TABLET PO SCH (14:00)
[2017-04-15] MEDS ORDERED: MAGNESIUM OXIDE 400 MG TABLET (FP) PO ONE (14:04)
[2017-04-15] MEDS: IBUPROFEN 800 MG/8 ML IJ IVPB SCH ×2 (14:48→23:19)
[2017-04-15] MEDS: RANITIDINE HCL 150 MG TABLET (FP) PO SCH (22:22)
[2017-04-16] MEDS ORDERED: PIPERACILLIN/TAZOBACTAM 4.5 GM VIAL IVPB ONE ×4 (01:01→23:07)
[2017-04-16] MEDS ORDERED: DEXTROSE 5%-WATER 100 ML IVPB ONE ×4 (01:01→23:07)
[2017-04-16] MEDS: PIPERACILLIN/TAZOB 4.5 GM 4.5 GM in DEXTROSE 5%-WATER 100 ML IVPB SCH ×3 (01:09→17:30)
[2017-04-16] MEDS: IBUPROFEN 800 MG/8 ML IJ IVPB SCH (05:14)
[2017-04-16] MEDS ORDERED: PT OWN MED DRAWER 7, Y5N ONE (09:06)
[2017-04-16 09:42] LABS: ANION GAP 9 (8-16); CALCIUM 8.1 mg/dL (8.5-10.1); CO2 26 mmol/L (21-32); CREATININE 0.8 mg/dL (0.55-1.02); GLUCOSE,RANDOM 157 mg/dL (74-106); MAGNESIUM 1.6 mg/dL (1.8-2.4)
[2017-04-16] MEDS: ENOXAPARIN NA (PORCINE) 40 MG/0.4 ML DISP.SYRIN SQ SCH ×2 (10:34→22:28)
[2017-04-16] MEDS: RANITIDINE HCL 150 MG TABLET (FP) PO SCH ×2 (10:34→22:28)
--- NOTE | 2017-04-16 11:08 | PN ---
Progress Note, Physician Chief Complaint: lower abdominal pain History of Present Illness: POD4 s/p laparoscopic converted to open sigmoidectomy with takedown of colovesical fistula Pt seen and examined in bed, was just up to BR for BM, less liquid/still loose. No fevers or chills, no nausea/vomiting. She is ambulating. Pain is less sharp, more uncomfortable, using minimal narcotics now, mainly Tylenol and Ibuprofen. KATT drain with 130ml out yesterday, 15ml last shift, mostly serous. Tolerating full liquids, but states she is lactose intolerant and has not been able to eat everything. No respiratory issues, no further wheezing noted, no SOB. - Current Medication List Current Medications: Active Medications Acetaminophen (Tylenol -) 650 mg PO Q6H PRN PRN Reason: FEVER OR PAIN Last Admin: 04/15/17 22:23 Dose: 650 mg Enoxaparin Sodium (Lovenox -) 40 mg SQ BID [facility] Last Admin: 04/16/17 10:34 Dose: 40 mg Piperacillin Sod/Tazobactam (Sod 4.5 gm/ Dextrose) 100 mls @ 200 mls/hr IVPB Q8H-IV [facility] PRN Reason: Protocol Last Admin: 04/16/17 10:34 Dose: 200 mls/hr Ibuprofen (Motrin -) 600 mg PO Q6H PRN PRN Reason: PAIN Oxycodone HCl (Roxicodone -) 5 mg PO Q8H PRN PRN Reason: PAIN Ranitidine HCl (Zantac -) 150 mg PO BID [facility] Last Admin: 04/16/17 10:34 Dose: 150 mg - Objective Vital Signs: Vital Signs Temperature 98.5 F 04/16/17 05:22 Pulse Rate 74 04/16/17 05:22 Respiratory Rate 16 04/16/17 05:22 Blood Pressure 140/74 04/16/17 05:22 O2 Sat by Pulse Oximetry (%) 96 04/15/17 20:00 Intake & Output 04/15/17 04/16/17 04/16/17 23:59 07:59 15:59 Intake Total 300 300 Output Total 1320 1015 Balance -1020 -715 Intake: IVPB 250 250 Oral 50 50 Output: Drainage 20 15 Right Abdomen 20 15 Urine 1300 1000 Jasmine 1300 1000 Other: Voiding Method Indwelling Catheter # Unmeasured Voids Void 1 Bowel Movement Yes Yes Constitutional: Yes: No Distress, Calm, Obese Cardiovascular: Yes: Regular Rate and Rhythm. No: Murmur Respiratory: Yes: Regular, CTA Bilaterally. No: Wheezes Gastrointestinal: Yes: Normal Bowel Sounds, Soft, Abdomen, Obese, Tenderness ( mainly suprapubic, less LLQ, no R/G), Other (RLQ drain bulb with serous output, <1/2 full; dressing saturated - changed) Genitourinary: Yes: Jasmine Present (light yellow urine) Wound/Incision: Yes: Well Approximated (where nikki are), [place] Intact (at port sites and at intervals in midline), Open to air (at port sites), Dressing Removed (at midline - packing x 4 wound areas changed with saline-dampened 2" roll gauze to base of wounds - all clean and pink/yellow, beginning to granulate , minimal serosang drainage on old dressing), Unapproximated (in 4 areas of midline), Other (drain site dressing changed RLQ) Neurological: Yes: Alert, Oriented. No: Unsteady Gait Labs: [facility] 04/16/17 09:10 Mg 1.6 Problem List - Problems (1) Colovesical fistula Assessment/Plan: see below Code(s): N32.1 - VESICOINTESTINAL FISTULA (2) Diverticulitis large intestine w/o perforation or abscess w/o bleeding Assessment/Plan: POD4 s/p sigmoidectomy and colovesical fistula takedown for diverticulitis and fistula doing well postop sensitive E. coli bacteremia and in urine - on Zosyn, continue as per ID - total 2 weeks planned pain controlled - using po pain regimen, non-narcotics with Percocet for breakthrough + bowel function, tolerating fulls - will advance to lactose-free diet today continue KATT drain - may need home care to learn daily care/emptying/recording of drainage Jasmine to remain x 1 week for bladder decompression - urology planning cystogram prior to removal home care on d/c to ensure she can learn Jasmine catheter care midline wound packing changed - will need home care for daily wound packing with 2" roll gauze to base of wounds can change drain site dressing prn to keep dry encourage OOB/ambulation GI/DVT prophylaxis - on bariatric lovenox dose and Zantac replete lytes Code(s): K57.32 - DVTRCLI OF LG INT W/O PERFORATION OR ABSCESS W/O BLEEDING (3) Bacteremia due to Gram-negative bacteria Assessment/Plan: E. coli - see above Code(s): R78.81 - BACTEREMIA (4) Morbid (severe) obesity due to excess calories Code(s): E66.01 - MORBID (SEVERE) OBESITY DUE TO EXCESS CALORIES
--- NOTE | 2017-04-16 12:04 | PN ---
Progress Note, Physician History of Present Illness: doing well no issues tolerating liquids - Current Medication List Current Medications: Active Medications Acetaminophen (Tylenol -) 650 mg PO Q6H PRN PRN Reason: FEVER OR PAIN Last Admin: 04/15/17 22:23 Dose: 650 mg Enoxaparin Sodium (Lovenox -) 40 mg SQ BID [facility] Last Admin: 04/16/17 10:34 Dose: 40 mg Piperacillin Sod/Tazobactam (Sod 4.5 gm/ Dextrose) 100 mls @ 200 mls/hr IVPB Q8H-IV [facility]ON PRN Reason: Protocol Last Admin: 04/16/17 10:34 Dose: 200 mls/hr Ibuprofen (Motrin -) 600 mg PO Q6H PRN PRN Reason: PAIN Oxycodone HCl (Roxicodone -) 5 mg PO Q8H PRN PRN Reason: PAIN Ranitidine HCl (Zantac -) 150 mg PO BID [facility] Last Admin: 04/16/17 10:34 Dose: 150 mg - Objective Vital Signs: Vital Signs Temperature 98.5 F 04/16/17 05:22 Pulse Rate 74 04/16/17 05:22 Respiratory Rate 16 04/16/17 05:22 Blood Pressure 140/74 04/16/17 05:22 O2 Sat by Pulse Oximetry (%) 96 04/15/17 20:00 Constitutional: Yes: No Distress, Calm, Obese Cardiovascular: Yes: Regular Rate and Rhythm Respiratory: Yes: Regular, CTA Bilaterally Gastrointestinal: Yes: Normal Bowel Sounds, Soft Musculoskeletal: Yes: WNL Extremities: Yes: WNL Neurological: Yes: Alert, Oriented Psychiatric: Yes: Alert, Oriented Labs: CBC, BMP 04/15/17 06:30 04/16/17 09:10 INR, PTT INR 1.38 (0.82-1.09) H 04/13/17 06:30 Assessment/Plan Problem List - Problem (1) Sepsis Code(s): A41.9 - SEPSIS, UNSPECIFIED ORGANISM (2) Diverticulitis Code(s): K57.92 - DVTRCLI OF INTEST, PART UNSP, W/O PERF OR ABSCESS W/O BLEED Qualifiers: Diverticulitis site: unspecified part of intestinal tract (3) UTI (urinary tract infection) Code(s): N39.0 - URINARY TRACT INFECTION, SITE NOT SPECIFIED (4) colovesical fistula (5) Lactic acidemia Code(s): E87.2 - ACIDOSIS (6) Thrombocytopenia Code(s): D69.6 - THROMBOCYTOPENIA, UNSPECIFIED (7)leukocytosis 8 gm negative bacteremia plan continue zosyn repeat blood cx negative so far patient doing well tolerated liquids
[2017-04-16] MEDS ORDERED: POTASSIUM CHLORIDE ORAL LIQUID 20 MEQ/15 ML PO ONE (12:40)
[2017-04-16] MEDS: IBUPROFEN 600 MG TABLET (FP) PO PRN (14:14)
[2017-04-16] MEDS ORDERED: oxyCODONE HCL 5 MG TABLET PO PRN (15:27)
[2017-04-16] MEDS ORDERED: MAGNESIUM SULF 50% (8.12 MEQ/2 ML-1 GM VIAL) IVPB ONE (15:28)
--- NOTE | 2017-04-16 15:37 | PN ---
Physical Exam: SUBJECTIVE: Patient seen and examined. She is laying flat w/o issue. She has some difficulty with ambulation d/t drain and ernandez, but she gets up. Denies fever, chills OBJECTIVE: Vital Signs Period Temp Pulse Resp BP Sys/Beyer Pulse Ox Last 24 Hr 98.4 F-99.1 F 69-99 16-18 129-144/74-82 96 PE Neuro: alert, awake, cn 2-12intact Pulm: CTA anteriorly CV: s1 s2 rrr no mrg Abd: RUQ KATT drain serosanguinous output, midline incision, TTP dressed, x2 port sites with x2 nikki each CDI Ext: + b.l pitting edema, well perfused Skin: tattoo Laboratory Results - last 24 hr 04/16/17 09:10 Sodium 141 Potassium 3.3 L Chloride 106 Carbon Dioxide 26 Anion Gap 9 BUN 4 L D Creatinine 0.8 D Random Glucose 157 H D Calcium 8.1 L Magnesium 1.6 L Active Medications Generic Name Dose Route Start Last Admin Trade Name [place] PRN Reason Stop Dose Admin Acetaminophen 650 mg 04/16/17 15:27 Tylenol - PO Q4H PRN FEVER OR PAIN Enoxaparin Sodium 40 mg 04/13/17 10:00 04/16/17 10:34 Lovenox - SQ 40 mg BID [facility] Administration Piperacillin Sod/Tazobactam 100 mls @ 200 mls/hr 04/13/17 02:00 04/16/17 10:34 Sod 4.5 gm/ Dextrose IVPB 200 mls/hr Q8H-IV [facility] Administration Protocol Ibuprofen 600 mg 04/16/17 10:44 04/16/17 14:14 Motrin - PO 600 mg Q6H PRN Administration PAIN Magnesium Sulfate 1 gm 04/16/17 15:28 Magnesium Sulfate IVPB 04/16/17 15:29 ONCE ONE Oxycodone HCl 5 mg 04/16/17 15:27 Roxicodone - PO Q6H PRN PAIN Ranitidine HCl 150 mg 04/15/17 22:00 04/16/17 10:34 Zantac - PO 150 mg BID [facility] Administration Microbiology 04/14/17 07:00 Blood - Peripheral Venous Blood Culture - Preliminary NO GROWTH OBTAINED AFTER 48 HOURS, INCUBATION TO CONTINUE FOR 3 DAYS. 04/14/17 06:45 Blood - Peripheral Venous Blood Culture - Preliminary NO GROWTH OBTAINED AFTER 48 HOURS, INCUBATION TO CONTINUE FOR 3 DAYS. 04/10/17 17:00 Blood - Peripheral Venous Blood Culture - Final Escherichia Coli 04/10/17 16:49 Urine - Urine Clean Catch Urine Culture - Final Escherichia Coli#2 Escherichia Coli 04/10/17 19:40 Urine - Urine Clean Catch Urine Culture - Final Escherichia Coli 04/10/17 17:20 Blood - Peripheral Venous Blood Culture - Final Escherichia Coli Imaging CTAP - two studies done on 04/10/17: (1) acute diverticulitis in the mid sigmoid colon; (2) collection/abscess inseparable from thickened dome of the urinary bladder; (3) possible colovesical fistula; (4) possible left-sided hydronephrosis; (5) s/p cholecystectomy Assessment: 36 year old female with a PMH significant for diverticulitis and s/ p cholecystectomy. Admitted for acute diverticulitis, abscess, and colovesical fistula. Plan: 1. Severe sepsis secondary to acute diverticulitis with abscess and colovesical fistula - s/p open sigmoidectomy with takedown of colovesical fistula 04/12 - Sepsis resolved - Maintain KATT drain - Surgery seeing 2. E. coli bacteremia - Continue Zosyn (day 4) - Ernandez in place, keep in place for another week, will need cystoscopy to assess repaired fistula 3. E. coli UTI - Possible bilateral hydronephrosis - Abx as above 4. Elevated bilirubin, resolved 5. DVT ppx - Bariatric lovenox dose 40mg BID 6. Electrolytes Hypokalemia - Replete potassium 40meq Hypomagnesemia - Replete 1gm mg x1 IV Visit type - Emergency Visit Emergency Visit: Yes ED Registration Date: 04/10/17 Care time: The patient presented to the Emergency Department on the above date and was hospitalized for further evaluation of their emergent condition. - New Patient This patient is new to me today: Yes Date on this admission: 04/16/17 - Critical Care Critical Care patient: No
[2017-04-16] MEDS ORDERED: ZOLPIDEM TARTRATE 5 MG TABLET PO ONE (22:41)
[2017-04-17] MEDS: PIPERACILLIN/TAZOB 4.5 GM 4.5 GM in DEXTROSE 5%-WATER 100 ML IVPB SCH ×3 (01:23→18:00)
[2017-04-17 08:24] LABS: ANION GAP 10 (8-16); CO2 28 mmol/L (21-32); CREATININE 0.6 mg/dL (0.55-1.02); GLUCOSE,RANDOM 120 mg/dL (74-106); MAGNESIUM 1.8 mg/dL (1.8-2.4)
[2017-04-17] MEDS ORDERED: PIPERACILLIN/TAZOBACTAM 4.5 GM VIAL IVPB ONE ×2 (08:27→16:23)
[2017-04-17] MEDS ORDERED: DEXTROSE 5%-WATER 100 ML IVPB ONE ×2 (08:27→16:23)
[2017-04-17] MEDS: ENOXAPARIN NA (PORCINE) 40 MG/0.4 ML DISP.SYRIN SQ SCH ×2 (09:15→22:06)
[2017-04-17] MEDS: RANITIDINE HCL 150 MG TABLET (FP) PO SCH ×2 (09:15→22:06)
[2017-04-17] MEDS: IBUPROFEN 600 MG TABLET (FP) PO PRN (09:17)
--- NOTE | 2017-04-17 12:02 | PN ---
Progress Note, Physician History of Present Illness: doing well no issues tolerated diet - Current Medication List Current Medications: Active Medications Acetaminophen (Tylenol -) 650 mg PO Q4H PRN PRN Reason: FEVER OR PAIN Enoxaparin Sodium (Lovenox -) 40 mg SQ BID [facility] Last Admin: 04/17/17 09:15 Dose: 40 mg Piperacillin Sod/Tazobactam (Sod 4.5 gm/ Dextrose) 100 mls @ 200 mls/hr IVPB Q8H-IV [facility]ON PRN Reason: Protocol Last Admin: 04/17/17 09:16 Dose: 200 mls/hr Ibuprofen (Motrin -) 600 mg PO Q6H PRN PRN Reason: PAIN Last Admin: 04/17/17 09:17 Dose: 600 mg Oxycodone HCl (Roxicodone -) 5 mg PO Q6H PRN PRN Reason: PAIN Ranitidine HCl (Zantac -) 150 mg PO BID [facility] Last Admin: 04/17/17 09:15 Dose: 150 mg - Objective Vital Signs: Vital Signs Temperature 98.2 F 04/17/17 04:00 Pulse Rate 79 04/17/17 04:00 Respiratory Rate 18 04/17/17 04:00 Blood Pressure 137/85 04/17/17 04:00 O2 Sat by Pulse Oximetry (%) 96 04/16/17 21:00 Constitutional: Yes: No Distress, Calm Cardiovascular: Yes: Regular Rate and Rhythm Respiratory: Yes: Regular, CTA Bilaterally Gastrointestinal: Yes: Normal Bowel Sounds, Soft, Other (draainge minimal) Musculoskeletal: Yes: WNL Extremities: Yes: WNL Wound/Incision: Yes: Clean/Dry, Other Neurological: Yes: Alert, Oriented Psychiatric: Yes: Alert, Oriented Labs: CBC, BMP 04/15/17 06:30 04/17/17 06:00 INR, PTT INR 1.38 (0.82-1.09) H 04/13/17 06:30 Assessment/Plan Problem List - Problem (1) Sepsis Code(s): A41.9 - SEPSIS, UNSPECIFIED ORGANISM (2) Diverticulitis Code(s): K57.92 - DVTRCLI OF INTEST, PART UNSP, W/O PERF OR ABSCESS W/O BLEED Qualifiers: Diverticulitis site: unspecified part of intestinal tract (3) UTI (urinary tract infection) Code(s): N39.0 - URINARY TRACT INFECTION, SITE NOT SPECIFIED (4) colovesical fistula (5) Lactic acidemia Code(s): E87.2 - ACIDOSIS (6) Thrombocytopenia Code(s): D69.6 - THROMBOCYTOPENIA, UNSPECIFIED (7)leukocytosis 8 gm negative bacteremia plan we will stop abx on tuesday after 7 days of abx rest continue as per surgery
--- NOTE | 2017-04-17 12:16 | PN ---
Physical Exam: SUBJECTIVE: Patient seen and examined at bedside. Denies all c/o at present. Tolerating PO's well. Reports loose BM that was less loose than previous stools. OBJECTIVE: Vital Signs 3 Period Temp Pulse Resp BP Sys/Beyer Pulse Ox Last 24 Hr 98.2 F-98.8 F 78-79 18-18 137-138/80-85 96 GENERAL: The patient is awake, alert, and fully oriented, in no acute distress.. LUNGS: Breath sounds equal, clear to auscultation bilaterally, no wheezes, no crackles, no accessory muscle use. HEART: Regular rate and rhythm, S1, S2 without murmur. ABDOMEN: Soft, nontender, nondistended, normoactive bowel sounds. Dressing midline c/d/i. Dressing to RLQ c/d/i. KATT in place with serous drainage present. 2 laproscopic sites with 2 nikki each c/d/i and ANNIKA. EXTREMITIES: 2+ pulses, warm, well-perfused, no edema. NEUROLOGICAL: Cranial nerves II through XII grossly intact. Normal speech, gait not observed. PSYCH: Normal mood, normal affect. SKIN: Warm, dry, normal turgor, no rashes or lesions noted Laboratory Results - last 24 hr 3 04/17/17 06:00 Sodium 142 Potassium 3.8 Chloride 104 Carbon Dioxide 28 Anion Gap 10 BUN 5 L D Creatinine 0.6 D Random Glucose 120 H D Calcium 8.0 L Magnesium 1.8 Active Medications 3 Generic Name Dose Route Start Last Admin Trade Name Freq PRN Reason Stop Dose Admin Acetaminophen 650 mg 04/16/17 15:27 Tylenol - PO Q4H PRN FEVER OR PAIN Enoxaparin Sodium 40 mg 04/13/17 10:00 04/17/17 09:15 Lovenox - SQ 40 mg BID [facility] Administration Piperacillin Sod/Tazobactam 100 mls @ 200 mls/hr 04/13/17 02:00 04/17/17 09:16 Sod 4.5 gm/ Dextrose IVPB 200 mls/hr Q8H-IV [facility] Administration Protocol Ibuprofen 600 mg 04/16/17 10:44 04/17/17 09:17 Motrin - PO 600 mg Q6H PRN Administration PAIN Oxycodone HCl 5 mg 04/16/17 15:27 Roxicodone - PO Q6H PRN PAIN Ranitidine HCl 150 mg 04/15/17 22:00 04/17/17 09:15 Zantac - PO 150 mg BID [facility] Administration ASSESSMENT/PLAN: A: 36 year old female with a PMH significant for diverticulitis and s/p cholecystectomy. Admitted for acute diverticulitis, abscess, and colovesical fistula. P: 1. Severe sepsis secondary to acute diverticulitis with abscess and colovesical fistula - s/p open sigmoidectomy with takedown of colovesical fistula 04/12 - Sepsis resolved - Maintain KATT drain- serous drainage present - Surgery [place] following 2. E. coli bacteremia - Continue Zosyn (day 5)- d/w ID Bobde- full 7 days of IV Zosyn required. - Jasmine in place, keep in place for another week, will need cystoscopy to assess repaired fistula 3. E. coli UTI - Possible bilateral hydronephrosis - Abx as above 4. Elevated bilirubin, resolved 5. Hypokalemia - K-3.8 this AM - Continue to monitor, replete prn 6. Hypomagnesemia - Mg-1.8 this AM - continue to monitor, replete prn 7. F/E/N - regular diet - replete prn 8. PPX - Bariatric lovenox dose 40mg BID Dispo: requires continued inpatient evaluation of acute medical conditions Visit type - Emergency Visit Emergency Visit: Yes ED Registration Date: 04/10/17 Care time: The patient presented to the Emergency Department on the above date and was hospitalized for further evaluation of their emergent condition. - New Patient This patient is new to me today: Yes Date on this admission: 04/17/17 - Critical Care Critical Care patient: No
--- NOTE | 2017-04-17 21:58 | PN ---
Progress Note (short form) - Note Progress Note: POD5 s/p laparoscopic converted to open sigmoidectomy with takedown of colovesical fistula Pt seen and examined in bed, up in chair and ambulating earlier. BMs getting less loose. No fevers or chills, no nausea/vomiting. Pain is less; had Tylenol this am and nothing since for pain. KATT drain with 15ml out yesterday, 20ml last shift, mostly serous. Small amount in bulb now. Tolerating diet, feeling hungrier. Vital Signs Period Temp Pulse Resp BP Sys/Beyer Pulse Ox Last 24 Hr 98.2 F-98.9 F 74-80 18-18 132-137/72-85 96 Intake & Output 04/17/17 04/17/17 04/17/17 07:59 15:59 23:59 Intake Total 400 Output Total 320 1800 1000 Balance -320 -1400 -1000 Intake: Oral 400 Output: Drainage 20 Right Abdomen 20 Urine 300 1800 1000 Void 300 Jasmine 300 1500 1000 Other: Voiding Method Toilet Toilet Bowel Movement Yes # Bowel Movements 1 PE: RRR CTAB abdomen obese, soft, nontender port sites with nikki C/D/I drain dressing changed in afternoon - still dry, much less drainage around tubing and in bulb, serous midline dressing intact - not changed tonight, will do in am, clean and dry No new labs No growth on latest cultures A/P: POD5 s/p sigmoidectomy and colovesical fistula takedown for diverticulitis and fistula doing well postop sensitive E. coli bacteremia and in urine - on Zosyn, continue as per ID - total 2 weeks planned with 1 week IV pain controlled - using po pain regimen/Tylenol + bowel function, tolerating diet continue KATT drain - may remove prior to d/c home Jasmine to remain x 1 week for bladder decompression - urology planning cystogram prior to removal home care on d/c to ensure she can learn Jasmine catheter care midline wound packing changed - will need home care for daily wound packing with 2" roll gauze to base of wounds can change drain site dressing prn to keep dry encourage OOB/ambulation GI/DVT prophylaxis - on bariatric lovenox dose and Zantac replete lytes prn Problem List - Problems (1) Colovesical fistula Code(s): N32.1 - VESICOINTESTINAL FISTULA (2) Diverticulitis large intestine w/o perforation or abscess w/o bleeding Code(s): K57.32 - DVTRCLI OF LG INT W/O PERFORATION OR ABSCESS W/O BLEEDING (3) Bacteremia due to Gram-negative bacteria Code(s): R78.81 - BACTEREMIA (4) Morbid (severe) obesity due to excess calories Code(s): E66.01 - MORBID (SEVERE) OBESITY DUE TO EXCESS CALORIES
[2017-04-18] MEDS ORDERED: PIPERACILLIN/TAZOBACTAM 4.5 GM VIAL IVPB ONE ×3 (02:50→17:17)
[2017-04-18] MEDS ORDERED: DEXTROSE 5%-WATER 100 ML IVPB ONE ×3 (02:51→17:17)
[2017-04-18] MEDS: PIPERACILLIN/TAZOB 4.5 GM 4.5 GM in DEXTROSE 5%-WATER 100 ML IVPB SCH ×3 (03:01→17:22)
[2017-04-18] MEDS: ACETAMINOPHEN 325 MG TABLET (FP) PO PRN (07:02)
[2017-04-18 08:37] LABS: MCH 30.3 pg (25.7-33.7); MEAN PLT VOLUME 7.7 fl (7.5-11.1); PLATELET COUNT 275 K/MM3 (134-434); RDW 13.9 % (11.6-15.6)
[2017-04-18 08:57] LABS: ANION GAP 9 (8-16); CALCIUM 8.6 mg/dL (8.5-10.1); CO2 28 mmol/L (21-32); GLUCOSE,RANDOM 104 mg/dL (74-106); MAGNESIUM 1.8 mg/dL (1.8-2.4)
[2017-04-18 08:59] LABS: CREATININE 0.7 mg/dL (0.55-1.02)
[2017-04-18 10:33] LABS: METAMYELOCYTE 2 % (0-2)
[2017-04-18 10:34] LABS: PLATELET ESTIMATE ADEQUATE (NORMAL)
[2017-04-18] MEDS: RANITIDINE HCL 150 MG TABLET (FP) PO SCH ×2 (10:39→21:21)
[2017-04-18] MEDS: ENOXAPARIN NA (PORCINE) 40 MG/0.4 ML DISP.SYRIN SQ SCH ×2 (10:39→21:22)
--- NOTE | 2017-04-18 11:45 | PN ---
Progress Note (short form) - Note Progress Note: POD6 s/p laparoscopic converted to open sigmoidectomy with takedown of colovesical fistula Pt seen and examined in bed. Has been ambulating even more. BMs getting more formed. No fevers or chills, no nausea/vomiting. Pain is less; using just Tylenol. KATT drain with 20ml out yesterday, 20ml last shift, mostly serous. Tolerating diet, feeling hungrier. Vital Signs Period Temp Pulse Resp BP Sys/Beyer Pulse Ox Last 24 Hr 98.4 F-98.9 F 78-83 18-18 121-137/71-85 96 Intake & Output 04/17/17 04/18/17 04/18/17 23:59 07:59 15:59 Intake Total 0 0 Output Total 1000 1620 Balance -1000 -1620 Intake: IVPB 0 0 Output: Drainage 20 Right Abdomen 20 Urine 1000 1600 Jasmine 1000 1600 Other: Voiding Method Toilet PE: RRR CTAB abdomen obese, soft, mild suprapubic tenderness port sites with nikki C/D/I drain dressing changed this am - changed again with scant serous staining KATT stripped with small amount of serous/serosang into tubing, small amt in bulb midline dressing changed - wounds clean and with early granulation, still some fat visible in lower wound moe; tolerated 2" roll gauze packing with minimal discomfort CBCD WBC 10.0 K/mm3 (4.0-10.0) D 04/18/17 06:04 RBC 4.02 M/mm3 (3.60-5.2) 04/18/17 06:04 Hgb 12.2 GM/dL (10.7-15.3) 04/18/17 06:04 Hct 35.8 % (32.4-45.2) 04/18/17 06:04 MCV 89.0 fl (80-96) 04/18/17 06:04 MCHC 34.0 g/dl (32.0-36.0) 04/18/17 06:04 RDW 13.9 % (11.6-15.6) 04/18/17 06:04 Plt Count 275 K/MM3 (134-434) D 04/18/17 06:04 MPV 7.7 fl (7.5-11.1) 04/18/17 06:04 CMP Sodium 141 mmol/L (136-145) 04/18/17 06:04 Potassium 4.1 mmol/L (3.5-5.1) 04/18/17 06:04 Chloride 104 mmol/L (98-107) 04/18/17 06:04 Carbon Dioxide 28 mmol/L (21-32) 04/18/17 06:04 Anion Gap 9 (8-16) 04/18/17 06:04 BUN 6 mg/dL (7-18) L 04/18/17 06:04 Creatinine 0.7 mg/dL (0.55-1.02) 04/18/17 06:04 Creat Clearance w eGFR > 60 (>60) 04/15/17 06:30 Calcium 8.6 mg/dL (8.5-10.1) 04/18/17 06:04 Total Bilirubin 0.6 mg/dL (0.2-1.0) D 04/15/17 06:30 AST 33 U/L (15-37) D 04/15/17 06:30 ALT 34 U/L (12-78) 04/15/17 06:30 Alkaline Phosphatase 66 U/L (45-117) 04/15/17 06:30 Total Protein 4.9 g/dl (6.4-8.2) L 04/15/17 06:30 Albumin 1.8 g/dl (3.4-5.0) L 04/15/17 06:30 A/P: POD6 s/p sigmoidectomy and colovesical fistula takedown for diverticulitis and fistula doing very well postop sensitive E. coli bacteremia and in urine - on Zosyn, continue as per ID - total 2 weeks planned with 1 week IV (IV done tomorrow night) pain controlled - using po pain regimen/Tylenol + bowel function, tolerating diet continue KATT drain today - will remove prior to d/c home Jasmine to remain x 1 week for bladder decompression - urology planning cystogram prior to removal primary team to contact urology for plan in case could be done while still here midline wound packing changed - will need home care to continue daily wound packing with 2" roll gauze to base of wounds continue to change drain site dressing prn to keep dry OOB/ambulation GI/DVT prophylaxis - on bariatric lovenox dose and Zantac lytes ok Problem List - Problems (1) Colovesical fistula Code(s): N32.1 - VESICOINTESTINAL FISTULA (2) Diverticulitis large intestine w/o perforation or abscess w/o bleeding Code(s): K57.32 - DVTRCLI OF LG INT W/O PERFORATION OR ABSCESS W/O BLEEDING (3) Bacteremia due to Gram-negative bacteria Code(s): R78.81 - BACTEREMIA (4) Morbid (severe) obesity due to excess calories Code(s): E66.01 - MORBID (SEVERE) OBESITY DUE TO EXCESS CALORIES
--- NOTE | 2017-04-18 15:53 | PN ---
Progress Note, Physician History of Present Illness: doing well no issues patient for cystogram tomorrow - Current Medication List Current Medications: Active Medications Acetaminophen (Tylenol -) 650 mg PO Q4H PRN PRN Reason: FEVER OR PAIN Last Admin: 04/18/17 07:02 Dose: 650 mg Enoxaparin Sodium (Lovenox -) 40 mg SQ BID [facility] Last Admin: 04/18/17 10:39 Dose: 40 mg Piperacillin Sod/Tazobactam (Sod 4.5 gm/ Dextrose) 100 mls @ 200 mls/hr IVPB Q8H-IV [facility] PRN Reason: Protocol Last Admin: 04/18/17 10:39 Dose: 200 mls/hr Ibuprofen (Motrin -) 600 mg PO Q6H PRN PRN Reason: PAIN Last Admin: 04/17/17 09:17 Dose: 600 mg Oxycodone HCl (Roxicodone -) 5 mg PO Q6H PRN PRN Reason: PAIN Ranitidine HCl (Zantac -) 150 mg PO BID [facility] Last Admin: 04/18/17 10:39 Dose: 150 mg - Objective Vital Signs: Vital Signs Temperature 98.1 F 04/18/17 14:55 Pulse Rate 88 04/18/17 14:55 Respiratory Rate 16 04/18/17 14:55 Blood Pressure 131/73 04/18/17 14:55 O2 Sat by Pulse Oximetry (%) 95 04/18/17 09:00 Constitutional: Yes: No Distress, Calm, Obese Cardiovascular: Yes: Regular Rate and Rhythm Respiratory: Yes: Regular, CTA Bilaterally Gastrointestinal: Yes: Normal Bowel Sounds, Soft Genitourinary: Yes: Jasmine Present Musculoskeletal: Yes: WNL Extremities: Yes: WNL Neurological: Yes: Alert, Oriented Psychiatric: Yes: Alert, Oriented Labs: CBC, BMP 04/18/17 06:04 04/18/17 06:04 INR, PTT INR 1.38 (0.82-1.09) H 04/13/17 06:30 Assessment/Plan Problem List - Problem (1) Sepsis Code(s): A41.9 - SEPSIS, UNSPECIFIED ORGANISM (2) Diverticulitis Code(s): K57.92 - DVTRCLI OF INTEST, PART UNSP, W/O PERF OR ABSCESS W/O BLEED Qualifiers: Diverticulitis site: unspecified part of intestinal tract (3) UTI (urinary tract infection) Code(s): N39.0 - URINARY TRACT INFECTION, SITE NOT SPECIFIED (4) colovesical fistula (5) Lactic acidemia Code(s): E87.2 - ACIDOSIS (6) Thrombocytopenia Code(s): D69.6 - THROMBOCYTOPENIA, UNSPECIFIED (7)leukocytosis 8 gm negative bacteremia plan stopped abx stable await for cysto rest as per urology
--- NOTE | 2017-04-18 16:04 | PN ---
Physical Exam: SUBJECTIVE: Patient seen and examined. She is feeling well, out of bed walking around, bm are more formed, no fever noted OBJECTIVE: Vital Signs Period Temp Pulse Resp BP Sys/Beyer Pulse Ox Last 24 Hr 97.9 F-98.9 F 80-98 16-18 121-137/71-83 95-96 PE Neuro: alert, awake, cn 2-12intact Pulm: CTAB CV: s1 s2 rrr no mrg Abd: RUQ KATT drain serosanguinous output, midline incision, x2 port sites with x2 nikki each CDI Ext: trace le well perfused Laboratory Results - last 24 hr 04/18/17 04/18/17 06:04 06:04 WBC 10.0 D RBC 4.02 Hgb 12.2 Hct 35.8 MCV 89.0 MCH 30.3 MCHC 34.0 RDW 13.9 Plt Count 275 D MPV 7.7 Neutrophils % 64.0 Lymphocytes % 25.0 D Monocytes % 5.0 Eosinophils % 1.0 Metamyelocytes 2 Myelocytes 3 H Differential Comment Manual diff done Platelet Estimate Adequate Sodium 141 Potassium 4.1 Chloride 104 Carbon Dioxide 28 Anion Gap 9 BUN 6 L Creatinine 0.7 Random Glucose 104 Calcium 8.6 Magnesium 1.8 Active Medications Generic Name Dose Route Start Last Admin Trade Name Freq PRN Reason Stop Dose Admin Acetaminophen 650 mg 04/16/17 15:27 04/18/17 07:02 Tylenol - PO 650 mg Q4H PRN Administration FEVER OR PAIN Enoxaparin Sodium 40 mg 04/13/17 10:00 04/18/17 10:39 Lovenox - SQ 40 mg BID [facility] Administration Piperacillin Sod/Tazobactam 100 mls @ 200 mls/hr 04/13/17 02:00 04/18/17 10:39 Sod 4.5 gm/ Dextrose IVPB 200 mls/hr Q8H-IV [facility] Administration Protocol Ibuprofen 600 mg 04/16/17 10:44 04/17/17 09:17 Motrin - PO 600 mg Q6H PRN Administration PAIN Oxycodone HCl 5 mg 04/16/17 15:27 Roxicodone - PO Q6H PRN PAIN Ranitidine HCl 150 mg 04/15/17 22:00 04/18/17 10:39 Zantac - PO 150 mg BID [facility] Administration Assessment: 36 year old female with a PMH significant for diverticulitis and s/ p cholecystectomy. Admitted for acute diverticulitis, abscess, and colovesical fistula. Plan: 1. Severe sepsis secondary to acute diverticulitis with abscess and colovesical fistula - s/p open sigmoidectomy with takedown of colovesical fistula 04/12 - Sepsis resolved - Maintain KATT drainm, will DC drain prior to discharge - Surgery seeing 2. E. coli bacteremia - Continue Zosyn (day 6) can DC Tuesday AM - Jasmine in place for 10 days and then cystogram, per Urology, can follow up in office if dc prior to 10 days 3. E. coli UTI - Possible bilateral hydronephrosis - Abx as above 4. Elevated bilirubin - Resolved 5. DVT ppx - Bariatric lovenox dose 40mg BID Visit type - Emergency Visit Emergency Visit: Yes ED Registration Date: 04/10/17 Care time: The patient presented to the Emergency Department on the above date and was hospitalized for further evaluation of their emergent condition. - New Patient This patient is new to me today: No - Critical Care Critical Care patient: No
[2017-04-19] MEDS ORDERED: PIPERACILLIN/TAZOBACTAM 4.5 GM VIAL IVPB ONE ×3 (00:16→17:20)
[2017-04-19] MEDS ORDERED: DEXTROSE 5%-WATER 100 ML IVPB ONE ×3 (00:16→17:21)
[2017-04-19] MEDS: PIPERACILLIN/TAZOB 4.5 GM 4.5 GM in DEXTROSE 5%-WATER 100 ML IVPB SCH ×3 (01:35→17:23)
[2017-04-19 08:08] LABS: MCH 30.1 pg (25.7-33.7); MCHC 33.6 g/dl (32.0-36.0); MEAN CELL VOLUME 89.7 fl (80-96); MEAN PLT VOLUME 7.8 fl (7.5-11.1); PLATELET COUNT 274 K/MM3 (134-434); RDW 13.7 % (11.6-15.6)
[2017-04-19] MEDS: RANITIDINE HCL 150 MG TABLET (FP) PO SCH ×2 (09:58→21:37)
[2017-04-19] MEDS: ENOXAPARIN NA (PORCINE) 40 MG/0.4 ML DISP.SYRIN SQ SCH ×2 (09:58→21:37)
[2017-04-19 12:11] LABS: METAMYELOCYTE 3 % (0-2)
[2017-04-19 12:12] LABS: PLATELET ESTIMATE ADEQUATE (NORMAL)
--- NOTE | 2017-04-19 15:40 | PN ---
Progress Note (short form) - Note Progress Note: POD7 s/p laparoscopic converted to open sigmoidectomy with takedown of colovesical fistula Pt seen and examined in bed. Has been ambulating, tolerating diet, +BMs. Pain is less daily, no Tylenol needed this am. KATT drain with 30ml yesterday and today , serous with pink tinge in bulb. Overall feeling well. Had some pinching in midline wound this morning after sleeping on her side last night. Vital Signs Period Temp Pulse Resp BP Sys/Beyer Pulse Ox Last 24 Hr 97.6 F-98.6 F 79-97 18-20 116-124/75-85 96-99 Intake & Output 04/18/17 04/19/17 04/19/17 23:59 07:59 15:59 Intake Total 100 100 Output Total 700 800 30 Balance -700 -700 70 Intake: IVPB 100 100 Output: Drainage 30 Right Abdomen 30 Urine 700 800 Jasmine 700 800 Other: Voiding Method Indwelling Catheter Indwelling Catheter Indwelling Catheter Bowel Movement No PE: abdomen obese, soft, mild suprapubic tenderness/incisional port sites with nikki C/D/I midline dressing changed - wounds clean, upper two granulating, still some fat visible in lower 2 wound moe; tolerated 2" roll gauze packing with minimal discomfort KATT removed and dressing placed CBCD WBC 10.0 K/mm3 (4.0-10.0) 04/19/17 06:55 RBC 4.06 M/mm3 (3.60-5.2) 04/19/17 06:55 Hgb 12.2 GM/dL (10.7-15.3) 04/19/17 06:55 Hct 36.5 % (32.4-45.2) 04/19/17 06:55 MCV 89.7 fl (80-96) 04/19/17 06:55 MCHC 33.6 g/dl (32.0-36.0) 04/19/17 06:55 RDW 13.7 % (11.6-15.6) 04/19/17 06:55 Plt Count 274 K/MM3 (134-434) 04/19/17 06:55 MPV 7.8 fl (7.5-11.1) 04/19/17 06:55 A/P: POD7 s/p sigmoidectomy and colovesical fistula takedown for diverticulitis and fistula doing very well postop sensitive E. coli bacteremia and in urine - on Zosyn, continue as per ID - total 2 weeks planned with 1 week IV (IV done after tonight) pain controlled - using po pain regimen/Tylenol + bowel function, tolerating diet Jasmine to remain x 1 week for bladder decompression - urology planning cystogram today midline wound packing changed - will need home care to continue daily wound packing with 2" roll gauze to base of wounds OOB/ambulation GI/DVT prophylaxis - on bariatric lovenox dose and Zantac will put postop and wound care instructions in D/C Plan pt to call office for followup appointment next Tuesday Problem List - Problems (1) Colovesical fistula Code(s): N32.1 - VESICOINTESTINAL FISTULA (2) Diverticulitis large intestine w/o perforation or abscess w/o bleeding Code(s): K57.32 - DVTRCLI OF LG INT W/O PERFORATION OR ABSCESS W/O BLEEDING (3) Bacteremia due to Gram-negative bacteria Code(s): R78.81 - BACTEREMIA (4) Morbid (severe) obesity due to excess calories Code(s): E66.01 - MORBID (SEVERE) OBESITY DUE TO EXCESS CALORIES
--- NOTE | 2017-04-19 16:11 | PN ---
Physical Exam: SUBJECTIVE: Patient seen and examined. She is ambulating, feeling well no complaints. OBJECTIVE: Vital Signs Period Temp Pulse Resp BP Sys/Beyer Pulse Ox Last 24 Hr 97.6 F-98.6 F 79-100 16-20 116-124/75-89 96-99 PE Neuro: alert, awake, cn 2-12intact Pulm: CTAB CV: s1 s2 rrr no mrg Abd: RUQ KATT drain serosanguinous output, midline incision, x2 port sites with x2 nikki each CDI Ext: trace le well perfused Laboratory Results - last 24 hr 04/19/17 06:55 WBC 10.0 RBC 4.06 Hgb 12.2 Hct 36.5 MCV 89.7 MCH 30.1 MCHC 33.6 RDW 13.7 Plt Count 274 MPV 7.8 Neutrophils % 62.0 Lymphocytes % 23.0 Monocytes % 3.0 L Eosinophils % 2.0 D Band Neutrophils 1.0 D Metamyelocytes 3 H D Myelocytes 6 H D Differential Comment Manual diff done Platelet Estimate Adequate Active Medications Generic Name Dose Route Start Last Admin Trade Name [place] PRN Reason Stop Dose Admin Acetaminophen 650 mg 04/16/17 15:27 04/18/17 07:02 Tylenol - PO 650 mg Q4H PRN Administration FEVER OR PAIN Enoxaparin Sodium 40 mg 04/13/17 10:00 04/19/17 09:58 Lovenox - SQ 40 mg BID MASON Administration Piperacillin Sod/Tazobactam 100 mls @ 200 mls/hr 04/13/17 02:00 04/19/17 09:57 Sod 4.5 gm/ Dextrose IVPB 200 mls/hr Q8H-IV MASON Administration Protocol Ibuprofen 600 mg 04/16/17 10:44 04/17/17 09:17 Motrin - PO 600 mg Q6H PRN Administration PAIN Ranitidine HCl 150 mg 04/15/17 22:00 04/19/17 09:58 Zantac - PO 150 mg BID MASON Administration Assessment: 36 year old female with a PMH significant for diverticulitis and s/ p cholecystectomy. Admitted for acute diverticulitis, abscess, and colovesical fistula. Plan: 1. Severe sepsis secondary to acute diverticulitis with abscess and colovesical fistula - s/p open sigmoidectomy with takedown of colovesical fistula 04/12 - Sepsis resolved - KATT drain pulled today - Surgery follow up in office next Tuesday 2. E. coli bacteremia - Continue Zosyn (day 7) can dc after tonight 1800 dose - For cystogram tomorrow - D.w urology 3. E. coli UTI - Possible bilateral hydronephrosis - Abx as above 4. Elevated bilirubin - Resolved 5. DVT ppx - Bariatric lovenox dose 40mg BID Dispo - Home with wound care and vns, see surgery note for wound dressing changes Visit type - Emergency Visit Emergency Visit: Yes ED Registration Date: 04/10/17 Care time: The patient presented to the Emergency Department on the above date and was hospitalized for further evaluation of their emergent condition. - New Patient This patient is new to me today: No - Critical Care Critical Care patient: No
[2017-04-19] MEDS: ACETAMINOPHEN 325 MG TABLET (FP) PO PRN (18:26)
[2017-04-20] MEDS ORDERED: PIPERACILLIN/TAZOBACTAM 4.5 GM VIAL IVPB ONE (00:29)
[2017-04-20] MEDS ORDERED: DEXTROSE 5%-WATER 100 ML IVPB ONE (00:29)
[2017-04-20] MEDS: PIPERACILLIN/TAZOB 4.5 GM 4.5 GM in DEXTROSE 5%-WATER 100 ML IVPB SCH (02:42)
[2017-04-20] MEDS: RANITIDINE HCL 150 MG TABLET (FP) PO SCH (10:59)
[2017-04-20] MEDS: ENOXAPARIN NA (PORCINE) 40 MG/0.4 ML DISP.SYRIN SQ SCH (10:59)
--- NOTE | 2017-04-20 11:48 | DS ---
Physical Exam: SUBJECTIVE: Patient seen and examined at bedside. OBJECTIVE: Vital Signs 3 Period Temp Pulse Resp BP Sys/Beyer Pulse Ox Last 24 Hr 97.9 F-99.4 F 78-100 16-20 110-118/60-89 99 PHYSICAL EXAM GENERAL: The patient is awake, alert, and fully oriented, in no acute distress.. LUNGS: Breath sounds equal, clear to auscultation bilaterally, no wheezes, no crackles, no accessory muscle use. HEART: Regular rate and rhythm, S1, S2 without murmur. ABDOMEN: Soft, nontender, nondistended, normoactive bowel sounds. Dressing midline c/d/i. Dressing to RLQ c/d/i. 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 EXTREMITIES: 2+ pulses, warm, well-perfused, no edema. NEUROLOGICAL: Cranial nerves II through XII grossly intact. Normal speech, gait not observed. PSYCH: Normal mood, normal affect. SKIN: Warm, dry, normal turgor, no rashes or lesions noted LABS Laboratory Results - last 24 hr 3 04/19/17 06:55 WBC 10.0 RBC 4.06 Hgb 12.2 Hct 36.5 MCV 89.7 MCH 30.1 MCHC 33.6 RDW 13.7 Plt Count 274 MPV 7.8 Neutrophils % 62.0 Lymphocytes % 23.0 Monocytes % 3.0 L Eosinophils % 2.0 D Band Neutrophils 1.0 D Metamyelocytes 3 H D Myelocytes 6 H D Differential Comment Manual diff done Platelet Estimate Adequate HOSPITAL COURSE: Date of Admission:04/10/17 Date of Discharge: 04/20/17 Minutes to complete discharge: 45 Discharge Summary Reason For Visit: DIVERTICULITIS OF INTESTINE FISTULA Current Active Problems Bacteremia due to Gram-negative bacteria (Acute) Colovesical fistula (Acute) DVT prophylaxis (Acute) Diverticulitis (Acute) Diverticulitis large intestine w/o perforation or abscess w/o bleeding (Acute) Fistula (Acute) Lactic acidemia (Acute) Morbid (severe) obesity due to excess calories (Acute) Sepsis (Acute) Thrombocytopenia (Acute) UTI (urinary tract infection) (Acute) Hospital Course: This is a 36 y/o female with a past medical history of diverticulitis who presents to the ED with suprapubic pain radiating to right flank x3 days. Patient reported having frequency symptoms x 5 days. Patient stateed "I've been taking ibuprofen for the pain, but now the pain is worse." Patient reported having subjective fevers, chills, N/V/D. Patient denied cough, SOB, CP. She was found to have severe sepsis secondary to acute diverticulitis with abscess and colovesical fistula, E. coli bacteremia and hyperbilirubinemia. She was started on Flagyl and Levaquin which was switched to Zosyn on 04/11. She received 7 full days of Zosyn with resolution of sepsis. On 04/12 she had on open sigmoidectomy and colovesical fistula takedown for diverticulitis and fistula. Hyperbilirubinemia spontaneously resolved on 04/13. Condition: Improved - Instructions Diet, Activity, Other Instructions: Postoperative instructions: You had a laparoscopic converted to open sigmoidectomy with takedown of colovesical fistula on 04/12/[address] Negrito Stone and Gustavo Melo of [facility]. Resume your usual activities gradually, but no heavy exertion or lifting more than 10-15 pounds for 4-6 weeks. Eat lightly at first, but advance to your usual diet as tolerated. Leave the drain dressing for 24-48 hours before removing, unless it gets soaked with fluid. You can keep it covered with gauze as needed until it stops draining. Make sure your wounds get packed/dressings changed daily. You may shower with all dressings off/out. You cannot hurt the wound with soap and water. Do not use anything else on the wounds except as prescribed. Wounds should be gently packed daily with 2" roll gauze dampened (wring out - should not drip) with normal saline solution. Tuck the gauze all the way to the base of each wound and make sure there is just enough to touch the sides of the wound all the way up to skin level, then trim the roll and move to the next wound. Do not leave wet gauze on normal skin. Cover the wounds with folded gauze pads and use tape to keep in place. For pain, use Tylenol as needed. Do not take more than 3000mg of acetaminophen in a day. Call Dr. Stone and Dr. Melo's office at [phone] for your postop appointment ( Tuesday in 2 weeks after surgery). Call the doctor if you have: - increasing pain not responsive to pain medication - fever of 101F or higher - vomiting - unusual or increasing bleeding or drainage from wounds - increasing redness or swelling at wound sites Follow up as instructed with urology. Referrals: Melvin Krishnamurthy MD., [Staff Physician] - Gustavo Melo MD [Staff Physician] - Tanisha Moran MD [Primary Care Provider] - Disposition: HOME - Home Medications Comprehensive Discharge Medication List: Ambulatory Orders NK [No Known Home Medication] 04/10/17 This patient is new to me today: No Emergency Visit: Yes ED Registration Date: 04/10/17 Care time: The patient presented to the Emergency Department on the above date and was hospitalized for further evaluation of their emergent condition. Critical Care patient: No - Discharge Referral Referred to [facility] No
--- NOTE | 2017-04-20 14:43 | PN ---
Progress Note, Physician History of Present Illness: doing well no issues - Current Medication List Current Medications: Active Medications Acetaminophen (Tylenol -) 650 mg PO Q4H PRN PRN Reason: FEVER OR PAIN Last Admin: 04/19/17 18:26 Dose: 650 mg Enoxaparin Sodium (Lovenox -) 40 mg SQ BID [facility] Last Admin: 04/20/17 10:59 Dose: 40 mg Ibuprofen (Motrin -) 600 mg PO Q6H PRN PRN Reason: PAIN Last Admin: 04/17/17 09:17 Dose: 600 mg Ranitidine HCl (Zantac -) 150 mg PO BID [facility] Last Admin: 04/20/17 10:59 Dose: 150 mg - Objective Vital Signs: Vital Signs Temperature 98.7 F 04/20/17 06:14 Pulse Rate 78 04/20/17 06:14 Respiratory Rate 18 04/20/17 06:14 Blood Pressure 110/67 04/20/17 06:14 O2 Sat by Pulse Oximetry (%) 99 04/19/17 21:00 Constitutional: Yes: No Distress, Calm, Obese Cardiovascular: Yes: Regular Rate and Rhythm Respiratory: Yes: Regular, CTA Bilaterally Gastrointestinal: Yes: Normal Bowel Sounds, Soft Genitourinary: Yes: Jasmine Present Musculoskeletal: Yes: WNL Extremities: Yes: WNL Wound/Incision: Yes: Clean/Dry, Dressing Dry and Intact Neurological: Yes: Alert, Oriented Psychiatric: Yes: Alert, Oriented Labs: CBC, BMP 04/19/17 06:55 04/18/17 06:04 INR, PTT INR 1.38 (0.82-1.09) H 04/13/17 06:30 Assessment/Plan Problem List - Problem (1) Sepsis Code(s): A41.9 - SEPSIS, UNSPECIFIED ORGANISM (2) Diverticulitis Code(s): K57.92 - DVTRCLI OF INTEST, PART UNSP, W/O PERF OR ABSCESS W/O BLEED Qualifiers: Diverticulitis site: unspecified part of intestinal tract (3) UTI (urinary tract infection) Code(s): N39.0 - URINARY TRACT INFECTION, SITE NOT SPECIFIED (4) colovesical fistula (5) Lactic acidemia Code(s): E87.2 - ACIDOSIS (6) Thrombocytopenia Code(s): D69.6 - THROMBOCYTOPENIA, UNSPECIFIED (7)leukocytosis 8 gm negative bacteremia plan patient off of abx doing well cystogram seen and noted rest continue current mgmt
[2017-04-20 15:32] VITALS: BP 110/63; PULSE 96; TEMP 98.8
--- NOTE | 2017-04-20 15:55 | PN ---
Progress Note (short form) - Note Progress Note: POD8 s/p laparoscopic converted to open sigmoidectomy with takedown of colovesical fistula Pt seen and examined in bed. Has been ambulating, tolerating diet, +BMs. Pain is minimal. KATT drain removed yesterday, dressing C/D/I. Had cystogram this am with no leak. Vital Signs Period Temp Pulse Resp BP Sys/Beyer Pulse Ox Last 24 Hr 98.7 F-99.4 F 78-96 16-20 110-117/60-67 99 Intake & Output 04/19/17 04/20/17 04/20/17 23:59 07:59 15:59 Intake Total 600 100 Output Total 700 800 800 Balance -100 -700 -800 Intake: IVPB 200 100 Oral 400 Output: Urine 700 800 800 Jasmine 700 800 800 Other: Voiding Method Indwelling Catheter Indwelling Catheter Bowel Movement No No No PE: abdomen obese, soft, minimal suprapubic incisional tenderness port sites with nikki C/D/I midline dressing changed - wounds clean, upper two granulating, still some fat visible in lower 2 wound moe; tolerated 2" roll gauze packing with minimal discomfort no new labs A/P: POD8 s/p sigmoidectomy and colovesical fistula takedown for diverticulitis and fistula doing very well postop completed antibiotics as per ID - none needed for home pain controlled - using po pain regimen/Tylenol + bowel function, tolerating diet Jasmine to remain one more week per urology midline wound packing changed - will need to continue daily wound packing with 2 " roll gauze to base of wounds - pt has friend who will help with daily wound care. Instructions are listed in d/c plan. Rx for supplies entered. OOB/ambulation GI/DVT prophylaxis - on bariatric lovenox dose and Zantac postop and wound care instructions in D/C Plan pt to call office for followup appointment on Friday 04/27 Problem List - Problems (1) Colovesical fistula Code(s): N32.1 - VESICOINTESTINAL FISTULA (2) Diverticulitis large intestine w/o perforation or abscess w/o bleeding Code(s): K57.32 - DVTRCLI OF LG INT W/O PERFORATION OR ABSCESS W/O BLEEDING (3) Bacteremia due to Gram-negative bacteria Code(s): R78.81 - BACTEREMIA (4) Morbid (severe) obesity due to excess calories Code(s): E66.01 - MORBID (SEVERE) OBESITY DUE TO EXCESS CALORIES
== END 2017-04-20 18:23 | disposition home or self-care (01) | DRG 710 ==
LOC: JER 09:35 → JERBED 21:37 → UNDOADMIN 21:54 → JERBED 21:54 → J8W 23:11
PROVIDERS: ADMIT Internal Medicine; ATTEND Nurse Practitioner Family
PROC: 0W9G00Z Drainage of Peritoneal Cavity with Drainage Device, Open Approach (ICD-10-PCS; 2017-04-12)
PROC: 0DJD8ZZ Inspection of Lower Intestinal Tract, Via Natural or Artificial Opening Endoscopic (ICD-10-PCS; 2017-04-12)
PROC: 0DTN0ZZ Resection of Sigmoid Colon, Open Approach (ICD-10-PCS; principal; 2017-04-12 13:00)
PROC: BT00ZZZ Plain Radiography of Bladder (ICD-10-PCS; 2017-04-20)
DX: A41.9 Sepsis, unspecified organism (principal); N32.1 Vesicointestinal fistula; K43.9 Ventral hernia without obstruction or gangrene; Z53.31 Laparoscopic surgical procedure converted to open procedure; E66.01 Morbid (severe) obesity due to excess calories; Z68.41 Body mass index [BMI] 40.0-44.9, adult; Z71.3 Dietary counseling and surveillance; N39.0 Urinary tract infection, site not specified; B96.20 Unspecified Escherichia coli [E. coli] as the cause of diseases classified elsewhere; E87.2 Acidosis; D69.6 Thrombocytopenia, unspecified; N13.30 Unspecified hydronephrosis; R79.1 Abnormal coagulation profile; K57.80 Diverticulitis of intestine, part unspecified, with perforation and abscess without bleeding; E87.6 Hypokalemia; E83.42 Hypomagnesemia
CPT/HCPCS: 36415; 51600; 71010-TC; 74000-TC; 74176-TC; 74177-TC; 80048; 80053; 81003; 81015; 83605; 83690; 83735; 84100; 84703; 85025; 85610; 86850; 86900; 86901; 87040; 87086; 87186; 88304-TC; 88307-TC; 93005; 93010; 94760; 99285-25

== ENCOUNTER 2017-07-22 01:49 | Emergency (ER) | payer OTHER ==
[2017-07-22 02:16] VITALS: BP 101/60; PULSE 92; TEMP 99.4; BMI 37.6
--- NOTE | 2017-07-22 02:29 | PDOC ---
Attending Attestation - Resident Resident Name: Michael George - ED Attending Attestation I have performed the following: I have examined & evaluated the patient, The case was reviewed & discussed with the resident, I agree w/resident's findings & plan, Exceptions are as noted - HPI HPI: 07/22/17 02:27 lesion to left buttock region - Physicial Exam PE: 07/22/17 02:26 Physical Exam General Appearance: Yes: Appropriately Dressed. No: Apparent Distress, Intoxicated HEENT: positive: EOMI, LUIGI, Normal ENT Inspection, Normal Voice, TMs Normal, Pharynx Normal. negative: Pale Conjunctivae, Photophobia, Scleral Icterus (R), Scleral Icterus (L) Neck: positive: Trachea midline, Normal Thyroid, Supple. negative: Tender, Rigid, Carotid bruit, Stridor, Lymphadenopathy (R), Lymphadenopathy (L), Thyromegaly Respiratory/Chest: positive: Lungs Clear, Normal Breath Sounds. negative: Chest Tender, Respiratory Distress, Accessory Muscle Use, Labored Respiration, RES, Crackles, Rales, Rhonchi, Stridor, Wheezing, Dullness Cardiovascular: positive: Regular Rhythm, Regular Rate, S1, S2. negative: Edema , JVD, Murmur, Bradycardia, Tachycardia Vascular Pulses: Dorsalis-Pedis (R): 2+, Doralis-Pedis (L): 2+ Gastrointestinal/Abdominal: positive: Normal Bowel Sounds, Flat, Soft. negative : Tender, Organomegaly, Pulsatile Mass, Increased Bowel Sounds, Decreased BS, Distended, Guarding, Rebound, Hernia, Hepatomegaly, Spleenomegaly Lymphatic: negative: Adenopathy, Tenderness Musculoskeletal: positive: lesion of erythema to left buttock region, non fluctuant. negative: CVA Tenderness, Decreased Range of Motion Extremity: positive: Normal Capillary Refill, Normal Inspection, Normal Range of Motion, Pelvis Stable. negative: Tender, Pedal Edema, Swelling, Erythema Integumentary: positive: Normal Color, Dry, Warm. 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 negative: EOM Palsy, Facial Droop, Sensory Deficit - Medical Decision Making 07/22/17 02:28 Pt will receive Abx as lesion is very superficial. advised to use warm compresses to mature lesion.
--- NOTE | 2017-07-22 02:41 | PDOC ---
History of Present Illness - General Chief Complaint: Wound Stated Complaint: PAIN/FEVER Time Seen by Provider: 07/22/17 01:57 History Source: Patient Exam Limitations: No Limitations - History of Present Illness Initial Comments: 07/22/17 02:35 The patient is a 37F with no pertinent PMH who presents to the ED with L buttock cellulitis. The patient states that this started Tuesday and has progressed and worsened to tonight where she was unable to handle the pain. The patient states that she frequently gets this type of reaction. She is s/p colectomy. Past History - Past Medical History Allergies/Adverse Reactions: Allergies Allergy/AdvReac Type Severity Reaction Status Date / Time No Known Drug Allergies Allergy Verified 07/22/17 02:15 lactose AdvReac Verified 07/22/17 02:15 cherries Allergy Uncoded 07/22/17 02:15 Home Medications: Ambulatory Orders Acetaminophen [Tylenol .Regular Strength -] 650 mg PO Q4H PRN #0 tablet Gauze Bandage [Gauze Pads] 3 ea TP DAILY #2 box 04/20/17 Gauze Bandage [Rolled Gauze] 1 each TP DAILY #30 bandage 04/20/17 Ibuprofen [Motrin -] 600 mg PO Q6H PRN #40 tablet 04/20/17 Sodium Chloride 0.9% Irrig [Sodium Chloride 0.9% Irrig. Soln 500 ml] 500 ml IR DAILY #1 btl 04/20/17 Sulfamethoxazole/Trimethoprim [Bactrim Ds -] 1 tab PO BID #14 tablet 07/22/17 Anemia: No - Surgical History Cholecystectomy: Yes (12/12/12) - Suicide/Smoking/Psychosocial Hx Smoking Status: Yes Smoking History: Never smoked Have you smoked in the past 12 months: No Number of Cigarettes Smoked Daily: 0 Information on smoking cessation initiated: No Hx Alcohol Use: No Drug/Substance Use Hx: No Substance Use Type: Alcohol Review of Systems - Review of Systems Able to Perform ROS?: Yes Is the patient limited French proficient: No Constitutional: No: Chills, Fever HEENTM: No: Eye Pain, Ear Discharge, Nose Pain Respiratory: No: Cough, Shortness of Breath Cardiac (ROS): No: Chest Pain, Palpitations ABD/GI: No: Nausea, Vomiting : No: Burning, Dysuria, Discharge Musculoskeletal: No: Back Pain, Muscle Pain Integumentary: No: Bruising Neurological: No: Headache, Numbness, Tingling, Weakness *Physical Exam - Vital Signs Last Vital Signs Temp Pulse Resp BP Pulse Ox 99.4 F 92 H 20 101/60 98 07/22/17 02:15 07/22/17 02:15 07/22/17 02:15 07/22/17 02:15 07/22/17 02:15 - Physical Exam General Appearance: Yes: Nourished, Appropriately Dressed HEENT: positive: Normal Voice, Hearing Grossly Normal Respiratory/Chest: positive: Lungs Clear, Normal Breath Sounds. negative: Chest Tender, Respiratory Distress Cardiovascular: positive: Regular Rhythm, Regular Rate, S1, S2. negative: Diastolic Murmur, Systolic Murmur Gastrointestinal/Abdominal: positive: Flat, Soft. negative: Tender Musculoskeletal: negative: CVA Tenderness (R), CVA Tenderness (L) Extremity: positive: Normal Inspection, Normal Range of Motion. negative: Swelling, Calf Tenderness Integumentary: positive: Dry, Warm, Other (3 cm erythematous, cellulitic rash with dense centerm, warm to touch, tender to palpation over inferior L buttock) Neurologic: positive: Fully Oriented, Alert, Normal Mood/Affect, Motor Strength 5/5 Procedures - Bedside Ultrasound Bedside Ultrasound: Skin Other: Cobblestoning seen in skin, no area of fluid with the ability to drain. Medical Decision Making - Medical Decision Making 07/22/17 02:39 The patient is a 37F with a PMH including diverticulosis w/ perforation s/p colectomy who presents to the ED with cellulitis and no I&D-able abscess. Will prescribe outpatient bactrim and have the patient f/u with PCP and residential sales rep. *DC/Admit/Observation/Transfer Diagnosis at time of Disposition: Cellulitis Qualifiers: Site of cellulitis: buttock Qualified Code(s): L03.317 - Cellulitis of buttock ; L03.317 - Cellulitis of buttock - Discharge Dispostion Disposition: HOME Condition at time of disposition: Stable Admit: No - Prescriptions Prescriptions: Sulfamethoxazole/Trimethoprim [Bactrim Ds -] 1 tab PO BID #14 tablet - Referrals Referrals: Tanisha Moran MD [Primary Care Provider] - Adwoa Deng MD [Staff Physician] - - Patient Instructions Printed Discharge Instructions: DI for Cellulitis -- Adult, DI for Skin Abscess Additional Instructions: Please return to the ER if symptoms progress, worsen, or new symptoms arise. Please follow up with your primary care doctor and the residential sales rep for your skin. Please take your antibiotics as prescribed for the full 7 days.
== END 2017-07-22 02:50 | disposition home or self-care (01) ==
LOC: JER 01:49
DX: L03.317 Cellulitis of buttock (principal); Z87.19 Personal history of other diseases of the digestive system
CPT/HCPCS: 99281-25

== ENCOUNTER 2018-10-25 09:54 | Inpatient (IN) | payer OTHER ==
--- NOTE | 2018-10-25 10:14 | PDOC ---
History of Present Illness <Sydni Agrawal - Last Filed: 10/25/18 16:39> - History of Present Illness Initial Comments: 10/25/18 11:37 The patient is a 38 year old female, with a past medical history of diverticulitis c/b abscess and colovesicular fistula s/p laparoscopic converted to open sigmoidectomy with takedown of colovesical fistula 04/2017, who presents to the emergency department complaining of 5 days of diarrhea with sudden onset of left upper abdominal pain last night. The patient reports traveling to [facility] with her family and returning yesterday. The patient reports thinking she had a stomach virus which prompted her to go to urgent care yesterday where she was given pepto bismol and pepcid with no relief. She reports her family has been experiencing nausea, vomiting, diarrhea without abdominal pain, however, became concerned because her pain feels like the diverticulitis. The patient states she has sharp, constant, left sided abdominal pain since last night which is aggravated while moving. She denies radiation of pain. She reports black to dark brown, watery, diarrhea 5x a day after every time she eats. She denies blood in her stool, but notes external hemorrhoids which occasionally result in blood after wiping. LMP August, but pt states period is irregular and comes every 2 months. DEnies vaginal bleeding or discharge. The patient denies chest pain, shortness of breath, headache and dizziness. Denies fever, chills, nausea, and constipation. Denies dysuria, frequency, urgency and hematuria. Allergies: cherries (fruit) Past surgical history:cholecystectomy (2012) Social history: ETOH 3x a week. Occasional tobacco use PCP: Dr. Catherine Beltran <Gigi Yanes - Last Filed: 10/25/18 17:17> - General Stated Complaint: PAIN, ACUTE Past History <Sydni Agrawal - Last Filed: 10/25/18 16:39> - Past Medical History Anemia: No - Surgical History Cholecystectomy: Yes (12/12/12) - Immunization History Immunization Up to Date: Yes - Suicide/Smoking/Psychosocial Hx Smoking Status: Yes Smoking History: Never smoked Have you smoked in the past 12 months: No Number of Cigarettes Smoked Daily: 0 Hx Alcohol Use: No Drug/Substance Use Hx: No Substance Use Type: Alcohol <Nassef,Yomna - Last Filed: 10/25/18 17:17> - Past Medical History Allergies/Adverse Reactions: Allergies Allergy/AdvReac Type Severity Reaction Status Date / Time No Known Drug Allergies Allergy Verified 10/25/18 10:44 lactose AdvReac Verified 10/25/18 10:44 cherries Allergy Uncoded 10/25/18 10:44 Home Medications: Ambulatory Orders NK [No Known Home Medication] 10/25/18 Review of Systems - Review of Systems Comments:: 10/25/18 11:38 GENERAL/CONSTITUTIONAL: + subjective fever. no chills. No weakness. HEAD, EYES, EARS, NOSE AND THROAT: No change in vision. No ear pain or discharge. No sore throat. GASTROINTESTINAL: No nausea, vomiting. + diarrhea. + meleana. + left abdominal pain. no constipation. GENITOURINARY: No dysuria, frequency, or change in urination. CARDIOVASCULAR: No chest pain or shortness of breath. RESPIRATORY: No cough, wheezing, or hemoptysis. MUSCULOSKELETAL: No joint or muscle swelling or pain. No neck or back pain. SKIN: No rash NEUROLOGIC: No headache, vertigo, loss of consciousness, or change in strength/ sensation. ENDOCRINE: No increased thirst. No abnormal weight change. HEMATOLOGIC/LYMPHATIC: No anemia, easy bleeding, or history of blood clots. ALLERGIC/IMMUNOLOGIC: No hives or skin allergy. <Gigi Yanes - Last Filed: 10/25/18 17:17> *Physical Exam - Vital Signs Last Vital Signs Temp Pulse Resp BP Pulse Ox 97.8 F 86 18 100/62 97 10/25/18 10:10 10/25/18 14:24 10/25/18 14:24 10/25/18 14:24 10/25/18 14:24 <Sydni Agrawal - Last Filed: 10/25/18 16:39> - Physical Exam Comments: 10/25/18 11:38 GENERAL: Awake, alert, and fully oriented, in no acute distress EYES: PERRLA, EOMI, sclera anicteric, conjunctiva clear ENT: Moist mucosa LUNGS: Breath sounds equal, clear to auscultation bilaterally. No wheezes, and no crackles HEART: Regular rate and rhythm, normal S1 and S2, no murmurs, rubs or gallops ABDOMEN: Soft, +L mid abdominal ttp, normoactive bowel sounds. No abd ttp in RLQ or LLQ. No guarding, no rebound, no distention. No masses : non bleeding, non thrombosed external hemorrhoids noted. Light brown stool in the vault. EXTREMITIES: Normal range of motion, no edema. No cords, erythema, or tenderness NEUROLOGICAL: Normal speech, cranial nerves intact, equal strength and sensation b/l SKIN: Warm, Dry, normal turgor, no rashes or lesions noted. <Gigi Yanes - Last Filed: 10/25/18 17:17> Moderate Sedation - Procedure Monitoring Vital Signs: Procedure Monitoring Vital Signs Temperature 97.8 F 10/25/18 10:10 Pulse Rate 86 10/25/18 14:24 Respiratory Rate 18 10/25/18 14:24 Blood Pressure 100/62 10/25/18 14:24 O2 Sat by Pulse Oximetry (%) 97 10/25/18 14:24 <Sydni Agrawal - Last Filed: 10/25/18 16:39> ED Treatment Course - LABORATORY CBC & Chemistry Diagram: 10/25/18 11:12 10/25/18 10:28 - ADDITIONAL ORDERS Additional order review: Laboratory Results 10/25/18 10/25/18 10/25/18 11:35 11:15 10:28 Sodium 142 Potassium 4.5 Chloride 109 H Carbon Dioxide 24 Anion Gap 9 BUN 7 Creatinine 0.7 Creat Clearance w eGFR > 60 Random Glucose 148 H Calcium 8.9 Magnesium 1.6 L Total Bilirubin 1.1 H AST 58 H ALT 116 H Alkaline Phosphatase 75 Total Protein 6.8 Albumin 3.2 L Lipase 166 Urine Color Yellow Urine Appearance Clear Urine pH 5.0 Ur Specific [place] 1.017 Urine Protein Negative Urine Glucose (UA) Negative Urine Ketones Negative Urine Blood Negative Urine Nitrite Negative Urine Bilirubin Negative Urine Urobilinogen Negative Ur Leukocyte Esterase Negative Urine HCG, Qual Negative Stool Occult Blood Negative 10/25/18 11:12 RBC 4.60 MCV 92.3 MCHC 34.6 RDW 13.1 MPV 9.1 D Neutrophils % 74.8 D Lymphocytes % 15.0 D Monocytes % 8.6 D Eosinophils % 1.0 Basophils % 0.6 - Medications Given in the ED: ED Medications Discontinued Medications Generic Name Dose Route Start Last Admin Trade Name Freq PRN Reason Stop Dose Admin Acetaminophen 1,000 mg 10/25/18 10:28 10/25/18 11:47 Ofirmev Injection - IVPB 10/25/18 10:29 1,000 mg ONCE ONE Administration Sodium Chloride 1,000 mls @ 1,000 mls/hr 10/25/18 10:28 10/25/18 11:46 Normal Saline - IV 10/25/18 11:27 1,000 mls/hr ASDIR STA Administration Magnesium Sulfate 2 gm 10/25/18 12:46 10/25/18 13:07 Magnesium Sulfate IVPB 10/25/18 12:47 2 gm ONCE ONE Administration Morphine Sulfate 2 mg 10/25/18 14:57 10/25/18 15:09 Morphine Injection - IVPUSH 10/25/18 14:58 2 mg ONCE ONE Administration <Sydni Agrawal - Last Filed: 10/25/18 16:39> - LABORATORY CBC & Chemistry Diagram: 10/25/18 11:12 10/25/18 10:28 <Gigi Yanes - Last Filed: 10/25/18 17:17> Medical Decision Making - Medical Decision Making 10/25/18 16:39 Dr. Melo was called and the patient's case was discussed. <Sydni Agrawal - Last Filed: 10/25/18 16:39> - Medical Decision Making 10/25/18 10:32 38yo F hx diverticulitis c/b abscess and colovesicular fistula s/p laparoscopic converted to open sigmoidectomy with takedown of colovesical fistula 04/2017 presents to the ED with sudden onset L flank pain in the setting of 5 days of diarrhea. Exam with L mid abdominal ttp, no rebound or guarding. DDx includes but not limited to recurrent diverticulitis vs gastroenterits vs colitis vs UTI. Plan: -labs -UA -UPT -CTAP with PO/IV contrast -IV tylenol -IVF -NPO -reassess 10/25/18 16:50 CTAP with acute uncomplicated diverticulitis Results discussed with pt, given 2mg morphine Case discussed with Dr. Melo, she recommends Zosyn (pt has received in the past for diverticulitis) Also requests ID consult from Dr. Cedeno, he has been paged 10/25/18 17:[address] Cedeno who will consult Case discussed with hospitalist Dr. Crenshaw, pt accepted for admission to Dr. Peoples Case discussed in detail with admitting physician including history, physical exam and ancillary studies. Admitting physician has assumed care for the patient, will follow all pending diagnostics and will complete the evaluation and treatment. <Gigi Yanes - Last Filed: 10/25/18 17:17> *DC/Admit/Observation/Transfer - Attestations Scribe Attestion: 10/25/18 16:40 Documentation prepared by Sydni Agrawal, acting as medical records technician for Gigi Yanes MD, <Sydni Agrawal - Last Filed: 10/25/18 16:39> - Discharge Dispostion Decision to Admit order: Yes - Attestations Physician Attestion: 10/25/18 16:59 I, Dr. Gigi Yanes MD, attest that this document has been prepared under my direction and personally reviewed by me in its entirety. I further attest, that it accurately reflects all work, treatment, procedures and medical decision -making performed by me. <Gigi Yanes - Last Filed: 10/25/18 17:17> Diagnosis at time of Disposition: Diverticulitis, Abdominal pain, Vomiting - Discharge Dispostion Condition at time of disposition: Stable
[2018-10-25] MEDS ORDERED: ACETAMINOPHEN 1000 MG/100 ML VIAL (NON FORMULARY) IVPB ONE (10:28)
[2018-10-25] MEDS ORDERED: SODIUM CHLORIDE 1,000 ML IV STA ×2 (10:28→16:18)
[2018-10-25] MEDS ORDERED: ACETAMINOPHEN INJECTION 100 ML IVPB ONE (11:00)
[2018-10-25 11:31] LABS: BASO % 0.6 % (0-2.0); HEMATOCRIT 42.4 % (32.4-45.2); HEMOGLOBIN 14.7 GM/dL (10.7-15.3); MCH 31.9 pg (25.7-33.7); MCHC 34.6 g/dl (32.0-36.0); MEAN CELL VOLUME 92.3 fl (80-96); MEAN PLT VOLUME 9.1 fl (7.5-11.1); MONO % 8.6 % (3.8-10.2); NEUT % 74.8 % (42.8-82.8); PLATELET COUNT 158 K/MM3 (134-434); RDW 13.1 % (11.6-15.6); WHITE BLOOD COUNT 9.5 K/mm3 (4.0-10.0)
[2018-10-25 11:53] LABS: HCG,QUALITATIVE URINE Negative
[2018-10-25 12:09] LABS: ALBUMIN 3.2 g/dl (3.4-5.0); ALK PHOS 75 U/L (45-117); ANION GAP 9 MMOL/L (8-16); BILIRUBIN,TOTAL 1.1 mg/dL (0.2-1); BLOOD UREA NITROGEN 7 mg/dL (7-18); CALCIUM 8.9 mg/dL (8.5-10.1); CHLORIDE 109 mmol/L (98-107); CO2 24 mmol/L (21-32); CREATININE 0.7 mg/dL (0.55-1.3); GLUCOSE,RANDOM 148 mg/dL (74-106); LIPASE 166 U/L (73-393); MAGNESIUM 1.6 mg/dL (1.8-2.4); POTASSIUM 4.5 mmol/L (3.5-5.1); SGOT/AST 58 U/L (15-37); SGPT/ALT 116 U/L (13-61); SODIUM 142 mmol/L (136-145); TOT PROT 6.8 g/dl (6.4-8.2)
[2018-10-25 12:13] LABS: URINE APPEARANCE CLEAR; URINE BILIRUBIN NEGATIVE (<2.0 mg/dL); URINE COLOR YELLOW; URINE GLUCOSE (UA) NEGATIVE (NEGATIVE); URINE KETONE NEGATIVE (NEGATIVE); URINE LEUK ESTERASE NEGATIVE (NEGATIVE); URINE NITRITE NEGATIVE (NEGATIVE); URINE PROTEIN NEGATIVE (NEGATIVE); URINE UROBILINOGEN NEGATIVE mg/dL (0.2-1.0)
[2018-10-25] MEDS ORDERED: MAGNESIUM SULF 50% (8.12 MEQ/2 ML-1 GM VIAL) IVPB ONE (12:46)
[2018-10-25] MEDS ORDERED: MAGNESIUM SULF 50% (8.12 MEQ/2 ML-1 GM VIAL) ONE (13:00)
[2018-10-25] MEDS ORDERED: morphine CARPU-JECT 4 MG/1 ML DISP.SYRIN IVPUSH ONE (14:55)
[2018-10-25] MEDS ORDERED: morphine CARPU-JECT 2 MG/1 ML DISP.SYRIN IVPUSH ONE (14:57)
[2018-10-25] MEDS ORDERED: MORPHINE SULFATE 2 MG/ML VIAL ONE (15:00)
[2018-10-25] MEDS ORDERED: PIPERACILLIN/TAZOB 4.5 GM 4.5 GM in DEXTROSE 5%-WATER - 100 ML IVPB ONE (16:17)
[2018-10-25] MEDS ORDERED: PIPERACILLIN/TAZOB 4.5 GM 4.5 GM/100 ML BAG IVPB ONE (16:27)
[2018-10-25] MEDS ORDERED: SODIUM CHLORIDE 1,000 ML IV SCH (17:15)
--- NOTE | 2018-10-25 17:46 | HP ---
CHIEF COMPLAINT: " Abdominal pain and diarrhoea" PCP: Dr. Tanisha Chun HISTORY OF PRESENT ILLNESS: Patient is a 38 year old female presented to the ED with the chief complaint of " abdominal pain x 1 day and diarrhoea for 5 days". As per the patient, she was apparently well until 5 days ago, was in [place] for a vacation, then started having mild abdominal pain, located diffusely, 2/10 in intensity, crampy in nature, non radiating, associated with 5-6 episodes of watery diarrhoea. She came back to [place] yesterday 10/23/18 went to urgent care, was given Pepto-bismol. Since last night at 2am started having severe pain on the LLQ, 7/10 in intensity , constant, sharp/crampy in nature, non radiating, not associated with nausea and vomiting. Symptoms were similar to the one she had in 2017 when she had acute complicated diverticulitis, hence came in to the ED for further evaluation and treatment. Denies fever, chills, rigors, sweating, headache, numbness, tingling or any other symptoms. No urinary symptoms. States she hasn't eaten since yesterday. Prior to that she was on liquid diet due to diarrhoea. Sleep disturbed since her illness. While in the ED noticed two hives in the abdomen, gives no h/o allergies to penicillin. Patient was admitted here at [facility] from 04/10/17 to 04/20/17 for acute complicated diverticulits with an abscess and colovesicle fistula s/p Laparoscopy converted to sigmoidectomy with taken down of colovesicle fistula. Also had E.coli bacteremia and UTI. ER course was notable for: (1) Afebrile, hemodynamically stable, T bili 1.1, AST/ALT 58/116, Mg-1.6 (2) Abd/Pelvis CT: Acute uncomplicated diverticulitis. (3) IV NS 1 L, IV Zosyn Recent Travel: Returned from [place] on 10/24/18 PAST MEDICAL HISTORY: Cholescystectomy 5 yrs ago, Complicated diverticulits with an abscess and colovesicle fistula s/p Laparoscopy converted to sigmoidectomy with taken down of colovesicle fistula. PAST SURGICAL HISTORY: As above Social History: Smoking: Quit 10 yrs ago. Smoked for 5 yrs Alcohol: Drinks about 3-4 times a week, half a bottle of vodka Drugs: Denies Family History: Mother DM, Father HTN Allergies No Known Drug Allergies Allergy (Verified 10/25/18 10:44) lactose Adverse Reaction (Verified 10/25/18 10:44) cherries Allergy (Uncoded 10/25/18 10:44) HOME MEDICATIONS: Home Medications Medication Instructions Recorded NK [No Known Home Medication] 10/25/18 REVIEW OF SYSTEMS CONSTITUTIONAL: Absent: fever, chills, diaphoresis, generalized weakness, malaise, loss of appetite, weight change HEENT: Absent: rhinorrhea, nasal congestion, throat pain, throat swelling, difficulty swallowing, mouth swelling, ear pain, eye pain, visual changes CARDIOVASCULAR: Absent: chest pain, syncope, palpitations, irregular heart rate, lightheadedness , peripheral edema RESPIRATORY: Absent: cough, shortness of breath, dyspnea with exertion, orthopnea, wheezing, stridor, hemoptysis GASTROINTESTINAL: Present: abdominal pain, abdominal distension,, diarrhea, Absent: constipation, melena, hematochezia, nausea, vomiting GENITOURINARY: Absent: dysuria, frequency, urgency, hesitancy, hematuria, flank pain, genital pain MUSCULOSKELETAL: Absent: myalgia, arthralgia, joint swelling, back pain, neck pain SKIN: Absent: rash, itching, pallor HEMATOLOGIC/IMMUNOLOGIC: Absent: easy bleeding, easy bruising, lymphadenopathy, frequent infections ENDOCRINE: Absent: unexplained weight gain, unexplained weight loss, heat intolerance, cold intolerance NEUROLOGIC: Absent: headache, focal weakness or paresthesias, dizziness, unsteady gait, seizure, mental status changes, bladder or bowel incontinence PSYCHIATRIC: Absent: anxiety, depression, suicidal or homicidal ideation, hallucinations. PHYSICAL EXAMINATION Vital Signs - 24 hr 10/25/18 10/25/18 10/25/18 10:10 12:23 14:24 Temperature 97.8 F Pulse Rate 90 Pulse Rate [ 86 Left Radial] Respiratory 18 18 Rate Blood Pressure 118/56 L Blood Pressure 100/62 [Right Arm] O2 Sat by Pulse 100 100 97 Oximetry (%) GENERAL: Young morbidly obese female, Awake, alert, and fully oriented, in no acute distress. EYES: EOM intact, no pallor or icterus. NECK: Supple, no JVD. LUNGS: B/L lungs clear, no added sounds. HEART: Regular rate and rhythm, normal S1 and S2 without murmur. ABDOMEN: Surgical scar taco-well healed, Soft, tender to palpation in the LLQ, no organomegaly. UPPER EXTREMITIES: 2+ pulses, warm, well-perfused. No cyanosis. No clubbing. No peripheral edema. LOWER EXTREMITIES: 2+ pulses, warm, well-perfused. No calf tenderness. No peripheral edema. NEUROLOGICAL: No facial droop, power 5/5 in all extremiteis. Cranial nerves II- XII intact. Normal speech. Gait not observed. PSYCHIATRIC: Cooperative. Good eye contact. Appropriate mood and affect. SKIN: Warm, dry, normal turgor, no rashes or lesions noted, normal capillary refill. Laboratory Results - last 24 hr 10/25/18 10/25/18 10/25/18 10:28 11:12 11:15 WBC 9.5 RBC 4.60 Hgb 14.7 Hct 42.4 D MCV 92.3 MCH 31.9 MCHC 34.6 RDW 13.1 Plt Count 158 D MPV 9.1 D Absolute Neuts (auto) 7.1 Neutrophils % 74.8 D Lymphocytes % 15.0 D Monocytes % 8.6 D Eosinophils % 1.0 Basophils % 0.6 Nucleated RBC % 0 Sodium 142 Potassium 4.5 Chloride 109 H Carbon Dioxide 24 Anion Gap 9 BUN 7 Creatinine 0.7 Creat Clearance w eGFR > 60 Random Glucose 148 H Calcium 8.9 Magnesium 1.6 L Total Bilirubin 1.1 H AST 58 H ALT 116 H Alkaline Phosphatase 75 Total Protein 6.8 Albumin 3.2 L Lipase 166 Urine Color Yellow Urine Appearance Clear Urine pH 5.0 Ur Specific [place] 1.017 Urine Protein Negative Urine Glucose (UA) Negative Urine Ketones Negative Urine Blood Negative Urine Nitrite Negative Urine Bilirubin Negative Urine Urobilinogen Negative Ur Leukocyte Esterase Negative Urine HCG, Qual Negative Stool Occult Blood 10/25/18 11:35 WBC RBC Hgb Hct MCV MCH MCHC RDW Plt Count MPV Absolute Neuts (auto) Neutrophils % Lymphocytes % Monocytes % Eosinophils % Basophils % Nucleated RBC % Sodium Potassium Chloride Carbon Dioxide Anion Gap BUN Creatinine Creat Clearance w eGFR Random Glucose Calcium Magnesium Total Bilirubin AST ALT Alkaline Phosphatase Total Protein Albumin Lipase Urine Color Urine Appearance Urine pH Ur Specific [place] Urine Protein Urine Glucose (UA) Urine Ketones Urine Blood Urine Nitrite Urine Bilirubin Urine Urobilinogen Ur Leukocyte Esterase Urine HCG, Qual Stool Occult Blood Negative CT abdomen pelvis with contrast 10/25/18: Acute uncomplicated diverticulitis is seen involving the mid and lower thirds of the descending colon. In comparison to a 2017 CT study interval resolution of sigmoid diverticulitis is seen. Status post interval laparotomy. Note is made of a 1.7 x 1.5 cm focus of outpouching along the ventral aspect of the middle third of the sigmoid colon containing air and administered oral contrast possibly representing a large diverticulum versus a chronic collection communicating with the sigmoid colon. Development of a midline anterior pelvic wall hernia is noted inferiorly containing nondilated distal small bowel loops. A small incisional hernia is noted containing fat only. A small umbilical hernia is again seen containing fat only. Prominent diffuse hepatic steatosis. Status post cholecystectomy. ASSESSMENT/PLAN: Patient is a 38 year old female with significant past medical history of complicated diverticulitis with colovesicle fistula s/p surgery presented to the ED with the chief complaint of " abdominal pain x 1 day and diarrhoea for 5 days" # Acute uncomplicated diverticulitis. c/o LLQ abdominal pain, has LLQ tenderness, watery diarrhoea Abdomen/Pelvis CT shows: Acute uncomplicated diverticulitis in the mid and lower thirds of descending colon Was given one L of IV NS and IV Zosyn Admit to Med-surg/inpatient Will keep her NPO IV NS @ 100 mls/hr IV Zosyn 3.375 gm Q8H (patient reports she doesn't have allergies to any antibiotics. Noticed two hives in the abdominal area after she received the abx unsure if it is from the medication or just an allergy. Mentioned to the patient, if she notices any more hives or rashes, to inform immediately and stop Zosyn. For now, continue. Stool cultures, stool for ova and parasite, stool for wbc ordered # Elevated liver enzymes AST/ALT 58/116. T bli 1.1. Will order direct bilirubin Could have been contributed by alcohol use # Frequent alcohol intake Drinks alcohol 3-4 times/week about 1/2 a bottle of vodka Encouraged patient to control the amount of drinking # FEN IV NS @ 100 mls/hr Electrolytes: Hypomg, repleted. Repeat in AM NPO # Prophylaxis For DVT: On Heparin 5000 IU sq TID For GI: Not indicated # Code Status: Full Code # Dispo: Admit to Med-surg. Duration of stay unknown. Illness, Investigation and Plan of care explained to the patient. She verbalized understanding. Case discussed with Dr. Peoples. Visit type - Emergency Visit Emergency Visit: Yes ED Registration Date: 10/25/18 Care time: The patient presented to the Emergency Department on the above date and was hospitalized for further evaluation of their emergent condition. - New Patient This patient is new to me today: Yes Date on this admission: 10/25/18 - Critical Care Critical Care patient: No
--- NOTE | 2018-10-25 17:57 | PN ---
Teaching Attending Note Name of Resident: Flower Mejia ATTENDING PHYSICIAN STATEMENT I saw and evaluated the patient. I reviewed the resident's note and discussed the case with the resident. I agree with the resident's findings and plan as documented. SUBJECTIVE: This is a 38 year old woman with a history of diverticular abscess with colovesical fistula, sigmoid resection, cholecystectomy who comes to the ED complaining of abdominal pain and diarrhea. Symptoms started while she was on vacation in [facility]. She describes the pain as diffuse and cramping. Last night, it became more constant and more severe. Bowel movements have been watery. She denies fever, chills, nausea, rectal bleeding, melena. OBJECTIVE: Vital Signs Period Temp Pulse Resp BP Sys/Beyer Pulse Ox Last 24 Hr 97.8 F 86-90 18-18 100-118/56-62 97-100 HEART: S1S2, RRR LUNGS: Clear ABDOMEN: Obese, soft, non-distended, (+) left-sided tenderness, normal BS EXTREMITIES: No edema Laboratory Tests 10/25/18 10/25/18 10/25/18 10:28 11:12 11:15 WBC 9.5 RBC 4.60 Hgb 14.7 Hct 42.4 D MCV 92.3 MCH 31.9 MCHC 34.6 RDW 13.1 Plt Count 158 D MPV 9.1 D Absolute Neuts (auto) 7.1 Neutrophils % 74.8 D Lymphocytes % 15.0 D Monocytes % 8.6 D Eosinophils % 1.0 Basophils % 0.6 Nucleated RBC % 0 Sodium 142 Potassium 4.5 Chloride 109 H Carbon Dioxide 24 Anion Gap 9 BUN 7 Creatinine 0.7 Creat Clearance w eGFR > 60 Random Glucose 148 H Calcium 8.9 Magnesium 1.6 L Total Bilirubin 1.1 H AST 58 H ALT 116 H Alkaline Phosphatase 75 Total Protein 6.8 Albumin 3.2 L Lipase 166 Urine Color Yellow Urine Appearance Clear Urine pH 5.0 Ur Specific [place] 1.017 Urine Protein Negative Urine Glucose (UA) Negative Urine Ketones Negative Urine Blood Negative Urine Nitrite Negative Urine Bilirubin Negative Urine Urobilinogen Negative Ur Leukocyte Esterase Negative Urine HCG, Qual Negative Stool Occult Blood 10/25/18 11:35 WBC RBC Hgb Hct MCV MCH MCHC RDW Plt Count MPV Absolute Neuts (auto) Neutrophils % Lymphocytes % Monocytes % Eosinophils % Basophils % Nucleated RBC % Sodium Potassium Chloride Carbon Dioxide Anion Gap BUN Creatinine Creat Clearance w eGFR Random Glucose Calcium Magnesium Total Bilirubin AST ALT Alkaline Phosphatase Total Protein Albumin Lipase Urine Color Urine Appearance Urine pH Ur Specific [place] Urine Protein Urine Glucose (UA) Urine Ketones Urine Blood Urine Nitrite Urine Bilirubin Urine Urobilinogen Ur Leukocyte Esterase Urine HCG, Qual Stool Occult Blood Negative Home Medications Medication Instructions Recorded NK [No Known Home Medication] 10/25/18 ASSESSMENT AND PLAN: This is a 38 year old woman with a history of diverticular abscess with colovesical fistula, sigmoid resection, cholecystectomy who presented to the ED with abdominal pain and diarrhea. 1. Acute diverticulitis, uncomplicated - Afebrile, WBC normal - NPO - IVF - Would treat with Levaquin and Flagyl and observe overnight, however, as per ED, surgery was consulted and recommended admission for treatment with Zosyn 2. Morbid obesity
[2018-10-25] MEDS ORDERED: ACETAMINOPHEN 1000 MG/100 ML VIAL (NON FORMULARY) IVPB PRN (20:38)
--- NOTE | 2018-10-25 20:43 | CONSULT ---
Consult Consult Specialty:: General Surgery Referred by:: Dr. Yanes Reason for Consultation:: diverticulitis - History of Present Illness Chief Complaint: L abdominal pain, diarrhea History of Present Illness: 38yo morbidly obese F known to me from 04/18, when she had diverticulitis with colovesical fistula, and I assisted Dr. Stone with laparoscopic converted to open sigmoidectomy with fistula takedown. She did well, and has not had problems since then with similar pain until this episode. She was on a family vacation to [facility] 10/16-10/23, during which she and most all other family members became sick with a diarrheal illness thought to be a stomach bug. She denies F/C , N/V, and though she initially had abdominal pain with the diarrhea, it did not feel like her previous diverticulitis. This all started around of last week. She stopped eating solids and went to mostly soup, water and liquids a few days ago. Tuesday morning, on her return, she felt pain in her left mid to lower abdomen, which did feel like last time, and she went to a local urgent care, where they took labs and thought it might be traveler's diarrhea, but called today to ask her to come back for results. This morning, however, the pain really got bad, and she came to ER instead, worried the diverticulitis might be back. She is having watery diarrhea. No urinary complaints. [place] hot just earlier today. No headache, dizziness or N/V. In the ER, wbc is normal, she is afebrile (though nurse just took T 100.7), Hb is 14 (higher than last baseline 12), UA is negative, and CT shows likely diverticulitis in descending colon segment without abscess or perforation, and an area by "distal sigmoid" which appears dilated adjacent and probably represents the anastomosis done at time of sigmoidectomy. There is an incisional hernia with nonobstructed small bowel loops, and a small fat- containing umbilical hernia. Surgery is asked to evaluate. She is seen and examined in ER holding, waiting for a room. She is comfortable lying on her stretcher, and states her pain is only about a 2 right now. It does come and go some. She is hungry. She is getting IV fluids and got a first dose of Zosyn. ID is consulted to continue. She is admitted to hospitalist team. - History Source History Provided By: Patient Limitations to Obtaining History: No Limitations - Past Medical History Gastrointestinal: Yes: Diverticulitis, Other (morbid obesity; colovesical fistula s/p takedown) ...LMP: 11/19/12 ...: No Additional Medical History: morbid obesity - Past Surgical History Past Surgical History: Yes: Cholecystectomy (laparoscopic 2-3 years ago), Colectomy (sigmoidectomy with colovesical fistula takedown (lap converted to open 04/18)), Colonoscopy (few months ago) - Alcohol/Substance Use Hx Alcohol Use: Yes (4-5 drinks, about 3 times weekly) History of Substance Use: reports: None - Smoking History Smoking history: Former smoker Have you smoked in the past 12 months: No If you are a former smoker, when did you quit?: over 15 yrs ago - Social History ADL: Independent Home Medications - Allergies Allergies/Adverse Reactions: Allergies Allergy/AdvReac Type Severity Reaction Status Date / Time No Known Drug Allergies Allergy Verified 10/25/18 10:44 lactose AdvReac Verified 10/25/18 10:44 cherries Allergy Uncoded 10/25/18 10:44 - Home Medications Home Medications: Ambulatory Orders NK [No Known Home Medication] 10/25/18 Family Disease History - Family Disease History Family History: Unremarkable (noncontributory) Review of Systems - Review of Systems Constitutional: denies: Chills, Fever Eyes: denies: Blurred Vision, Recent Change in Vision HENT: denies: Difficult Swallowing, Throat Pain Neck: denies: Swollen Glands, Tenderness Cardiovascular: denies: Chest Pain, Palpitations Respiratory: denies: Cough, SOB Gastrointestinal: reports: Abdominal Pain (with hpi), Diarrhea (with hpi). denies: Constipation, Melena, Nausea, Rectal Bleeding, Vomiting Genitourinary: denies: Burning, Dysuria Musculoskeletal: denies: Back Pain, Joint Pain, Muscle Pain Integumentary: reports: Lesions (small pink spot on right abdomen - looks like small subcutaneous cyst). denies: Change in Color, Rash Neurological: denies: Dizziness, Headache Psychiatric: denies: Anxiety, Depression Pain Intensity: 2 Physical Exam Vital Signs: Vital Signs Temperature 100.0 F H 10/25/18 18:38 Pulse Rate 94 H 10/25/18 18:38 Respiratory Rate 16 10/25/18 18:38 Blood Pressure 122/78 10/25/18 18:38 O2 Sat by Pulse Oximetry (%) 98 10/25/18 18:38 Constitutional: Yes: No Distress, Calm, Obese Eyes: Yes: Conjunctiva Clear, EOM Intact HENT: Yes: Atraumatic, Normocephalic Neck: Yes: Supple, Trachea Midline Cardiovascular: Yes: Regular Rate and Rhythm Respiratory: Yes: Regular, CTA Bilaterally Gastrointestinal: Yes: Normal Bowel Sounds, Soft, Abdomen, Obese, Hernia (can palpate incisional hernia defect in lower midline area, possibly to each side of midline, feels mostly reducible, minimally tender), Tenderness (left mid abdomen, more laterally, less a bit lower), Other (healed lower midline scar to above umbilicus). No: Distention, Tenderness, Epigastrium, Tenderness, Rebound ...Rectal Exam: Yes: Deferred Renal/: No: CVA Tenderness - Left, CVA Tenderness - Right Musculoskeletal: No: Joint Stiffness, Joint Swelling Extremities: No: Cool, Cyanosis Edema: No Peripheral Pulses WNL: Yes Integumentary: Yes: Tattoos. No: Jaundice, Rash Neurological: Yes: Alert, Oriented Psychiatric: Yes: Alert, Oriented Labs: CBC, BMP 10/25/18 11:12 10/25/18 10:28 CMP Sodium 142 mmol/L (136-145) 10/25/18 10:28 Potassium 4.5 mmol/L (3.5-5.1) 10/25/18 10:28 Chloride 109 mmol/L (98-107) H 10/25/18 10:28 Carbon Dioxide 24 mmol/L (21-32) 10/25/18 10:28 Anion Gap 9 MMOL/L (8-16) 10/25/18 10:28 BUN 7 mg/dL (7-18) 10/25/18 10:28 Creatinine 0.7 mg/dL (0.55-1.3) 10/25/18 10:28 Creat Clearance w eGFR > 60 (>60) 10/25/18 10:28 Random Glucose 148 mg/dL (74-106) H 10/25/18 10:28 Calcium 8.9 mg/dL (8.5-10.1) 10/25/18 10:28 Magnesium 1.6 mg/dL (1.8-2.4) L 10/25/18 10:28 Total Bilirubin 1.1 mg/dL (0.2-1) H 10/25/18 10:28 AST 58 U/L (15-37) H 10/25/18 10:28 ALT 116 U/L (13-61) H 10/25/18 10:28 Alkaline Phosphatase 75 U/L (45-117) 10/25/18 10:28 Total Protein 6.8 g/dl (6.4-8.2) 10/25/18 10:28 Albumin 3.2 g/dl (3.4-5.0) L 10/25/18 10:28 Lipase 166 U/L (73-393) 10/25/18 10:28 Urine Test Results Urine Color Yellow 10/25/18 11:15 Urine Appearance Clear 10/25/18 11:15 Urine pH 5.0 (5.0-8.0) 10/25/18 11:15 Ur Specific Mason 1.017 (1.010-1.035) 10/25/18 11:15 Urine Protein Negative (NEGATIVE) 10/25/18 11:15 Urine Glucose (UA) Negative (NEGATIVE) 10/25/18 11:15 Urine Ketones Negative (NEGATIVE) 10/25/18 11:15 Urine Blood Negative (NEGATIVE) 10/25/18 11:15 Urine Nitrite Negative (NEGATIVE) 10/25/18 11:15 Urine Bilirubin Negative (<2.0 mg/dL) 10/25/18 11:15 Ur Leukocyte Esterase Negative (NEGATIVE) 10/25/18 11:15 bili, AST, ALT slightly up, s/p fernanda and with EtOH use wbc normal Mg low Imaging - Results Cat Scan: Report Reviewed, Image Reviewed (images reviewed - focus of diverticulitis in descending colon, anastomosis post-sigmoidectomy noted in pelvis, no obstruction, no free air, no abscess) Problem List - Problems (1) Diverticulitis large intestine w/o perforation or abscess w/o bleeding Assessment/Plan: admitted to medicine NPO/IVF until pain/tenderness resolve IV antibiotics, ID consulted to continue Zosyn 4.5g q8 nonnarcotic pain meds first line OOB/ambulation as able GI/DVT prophylaxis trend labs, get coags/T&S in am stool studies ordered Code(s): K57.32 - DVTRCLI OF LG INT W/O PERFORATION OR ABSCESS W/O BLEEDING (2) LLQ pain Code(s): R10.32 - LEFT LOWER QUADRANT PAIN (3) Left lower quadrant abdominal tenderness without rebound tenderness Code(s): R10.814 - LEFT LOWER QUADRANT ABDOMINAL TENDERNESS (4) Morbid (severe) obesity due to excess calories Code(s): E66.01 - MORBID (SEVERE) OBESITY DUE TO EXCESS CALORIES
[2018-10-25] MEDS ORDERED: HEPARIN NA (PORCINE) 5,000 UNITS/ML 1ML VIAL ONE (22:42)
[2018-10-25] MEDS: HEPARIN NA (PORCINE) 5,000 UNITS/ML 1ML VIAL SQ SCH (22:55)
[2018-10-25] MEDS: SODIUM CHLORIDE 1,000 ML IV SCH (22:56)
[2018-10-26] MEDS ORDERED: PIPERACILLIN/TAZOBACTAM 4.5 GM VIAL IVPB ONE (01:24)
[2018-10-26] MEDS ORDERED: DEXTROSE 5%-WATER 100 ML IVPB ONE (01:24)
[2018-10-26] MEDS: SODIUM CHLORIDE 1,000 ML IV SCH ×3 (01:37→20:32)
[2018-10-26] MEDS ORDERED: PIPERACILLIN/TAZOB 3.375 GM 3.375 GM in DEXTROSE 5%-WATER - 50 ML IVPB SCH ×2 (02:00→10:00)
[2018-10-26] MEDS ORDERED: PIPERACILLIN/TAZOB 4.5 GM 4.5 GM in DEXTROSE 5%-WATER 100 ML IVPB SCH (02:00)
[2018-10-26 03:30] VITALS: BMI 42.7
[2018-10-26] MEDS: HEPARIN NA (PORCINE) 5,000 UNITS/ML 1ML VIAL SQ SCH ×3 (06:00→22:35)
[2018-10-26 07:27] LABS: BASO % 0.6 % (0-2.0); EOS % 1.5 % (0-4.5); HEMOGLOBIN 13.2 GM/dL (10.7-15.3); LYMPH % 21.7 % (8-40); MCH 32.2 pg (25.7-33.7); MCHC 34.7 g/dl (32.0-36.0); MEAN CELL VOLUME 92.9 fl (80-96); MEAN PLT VOLUME 9.2 fl (7.5-11.1); MONO % 8.7 % (3.8-10.2); NEUT % 67.5 % (42.8-82.8); PLATELET COUNT 146 K/MM3 (134-434); RBC 4.09 M/mm3 (3.60-5.2); RDW 12.9 % (11.6-15.6); WHITE BLOOD COUNT 7.2 K/mm3 (4.0-10.0)
[2018-10-26 07:39] LABS: INR 1.11 (0.83-1.09); PROTHROMBIN TIME (PATIENT) 13.1 SEC (9.7-13.0)
[2018-10-26 07:57] LABS: ALBUMIN 2.8 g/dl (3.4-5.0); ALK PHOS 62 U/L (45-117); ANION GAP 7 MMOL/L (8-16); BILIRUBIN,TOTAL 1.1 mg/dL (0.2-1); BLOOD UREA NITROGEN 5 mg/dL (7-18); CALCIUM 8.3 mg/dL (8.5-10.1); CHLORIDE 110 mmol/L (98-107); CO2 24 mmol/L (21-32); CREATININE 0.6 mg/dL (0.55-1.3); GLUCOSE,RANDOM 126 mg/dL (74-106); POTASSIUM 3.9 mmol/L (3.5-5.1); SGOT/AST 30 U/L (15-37); SGPT/ALT 82 U/L (13-61); SODIUM 140 mmol/L (136-145); TOT PROT 5.8 g/dl (6.4-8.2)
[2018-10-26] MEDS ORDERED: DEXTROSE 5%-WATER - 50 ML IVPB ONE ×3 (09:01→20:27)
[2018-10-26] MEDS ORDERED: PIPERACILLIN/TAZOBACTAM 3.375 GM VIAL IVPB ONE ×4 (09:01→20:26)
--- NOTE | 2018-10-26 12:22 | EKG ---
Test Reason : Blood Pressure : / mmHG Vent. Rate : 084 BPM Atrial Rate : 084 BPM P-R Int : 158 ms QRS Dur : 108 ms QT Int : 394 ms P-R-T Axes : 047 056 037 degrees QTc Int : 465 ms NORMAL SINUS RHYTHM NORMAL ECG WHEN COMPARED WITH ECG OF 10-APR-2017 11:13, NO SIGNIFICANT CHANGE WAS FOUND Confirmed by CLARENCE HARRISON MD ([id number]) on 10/26/2018 12:21:57 PM Referred By: Confirmed By:CLARENCE HARRISON MD
--- NOTE | 2018-10-26 13:41 | PN ---
Teaching Attending Note Name of Resident: Jerrell West ATTENDING PHYSICIAN STATEMENT I saw and evaluated the patient. I reviewed the resident's note and discussed the case with the resident. I agree with the resident's findings and plan as documented. SUBJECTIVE: Abdominal pain is less severe today. She had watery bowel movement this morning. OBJECTIVE: Vital Signs Period Temp Pulse Resp BP Sys/Beyer Pulse Ox Last 24 Hr 98.5 F-100.7 F 79-94 16-20 100-131/55-82 92-100 HEART: S1S2, RRR LUNGS: Clear ABDOMEN: Obese, soft, non-distended, decreased left-sided tenderness, normal BS EXTREMITIES: No edema Laboratory Results - last 24 hr 10/26/18 10/26/18 10/26/18 06:00 06:00 06:00 WBC 7.2 RBC 4.09 Hgb 13.2 Hct 38.0 MCV 92.9 MCH 32.2 MCHC 34.7 RDW 12.9 Plt Count 146 MPV 9.2 Absolute Neuts (auto) 4.9 Neutrophils % 67.5 Lymphocytes % 21.7 D Monocytes % 8.7 Eosinophils % 1.5 Basophils % 0.6 Nucleated RBC % 0 PT with INR 13.10 H INR 1.11 H Sodium 140 Potassium 3.9 Chloride 110 H Carbon Dioxide 24 Anion Gap 7 L BUN 5 L Creatinine 0.6 Creat Clearance w eGFR > 60 Random Glucose 126 H Calcium 8.3 L Phosphorus 3.0 Magnesium 2.0 Total Bilirubin 1.1 H AST 30 ALT 82 H Alkaline Phosphatase 62 Total Protein 5.8 L Albumin 2.8 L Blood Type Antibody Screen 10/26/18 06:00 WBC RBC Hgb Hct MCV MCH MCHC RDW Plt Count MPV Absolute Neuts (auto) Neutrophils % Lymphocytes % Monocytes % Eosinophils % Basophils % Nucleated RBC % PT with INR INR Sodium Potassium Chloride Carbon Dioxide Anion Gap BUN Creatinine Creat Clearance w eGFR Random Glucose Calcium Phosphorus Magnesium Total Bilirubin AST ALT Alkaline Phosphatase Total Protein Albumin Blood Type A POSITIVE Antibody Screen Negative Current Medications Generic Name Dose Route Start Last Admin Trade Name Freq PRN Reason Stop Dose Admin Acetaminophen 1,000 mg 10/25/18 20:38 10/26/18 11:40 Ofirmev Injection - IVPB 1,000 mg Q6H PRN Administration PAIN LEVEL 6-10 Heparin Sodium (Porcine) 5,000 unit 10/25/18 22:00 10/26/18 06:00 Heparin - SQ 5,000 unit TID MASON Administration Sodium Chloride 1,000 mls @ 125 mls/hr 10/25/18 20:38 10/26/18 09:17 Normal Saline - IV 125 mls/hr ASDIR MASON Administration Piperacillin Sod/Tazobactam 50 mls @ 100 mls/hr 10/26/18 10:00 10/26/18 09:16 Sod 3.375 gm/ Dextrose IVPB 100 mls/hr Q8H-IV MASON Administration Protocol ASSESSMENT AND PLAN: This is a 38 year old woman with a history of diverticular abscess with colovesical fistula, sigmoid resection, cholecystectomy who presented to the ED with abdominal pain and diarrhea. 1. Acute diverticulitis, uncomplicated - Had temp 100.7 overnight - WBC normal - Pain improving - Start clear liquids - Continue IVF, Zosyn 2. Diarrhea - Stool studies pending 3. Morbid obesity with BMI 42.7
--- NOTE | 2018-10-26 16:34 | PN ---
Physical Exam: SUBJECTIVE: Patient seen and examined this AM. She states that her pain is down to about a 2 when present though it comes and goes. She denies any loose stool since yesterday. She denies any blood in her stool at all throughout the entire course. OBJECTIVE: Vital Signs Period Temp Pulse Resp BP Sys/Beyer Pulse Ox Last 24 Hr 98.0 F-100.7 F 79-94 16-22 108-133/55-82 92-100 GENERAL: A&O, no acute distress HEAD: Normocephalic, atraumatic. EYES: PERRL, no scleral icterus EARS, NOSE, THROAT: oropharynx clear without exudates. Moist mucous membranes. LUNGS: CTA b/l, no crackles or wheezes HEART: Regular rate and rhythm, normal S1 and S2 without murmur ABDOMEN: Soft, nontender to superficial or deep palpation, normoactive to hyperactive bowel sounds EXTREMITIES: 2+ pulses, warm, well-perfused. No peripheral edema. NEUROLOGICAL: Cranial nerves II-XII grossly intact. Normal speech. Laboratory Results - last 24 hr 10/26/18 10/26/18 10/26/18 06:00 06:00 06:00 WBC 7.2 RBC 4.09 Hgb 13.2 Hct 38.0 MCV 92.9 MCH 32.2 MCHC 34.7 RDW 12.9 Plt Count 146 MPV 9.2 Absolute Neuts (auto) 4.9 Neutrophils % 67.5 Lymphocytes % 21.7 D Monocytes % 8.7 Eosinophils % 1.5 Basophils % 0.6 Nucleated RBC % 0 PT with INR 13.10 H INR 1.11 H Sodium 140 Potassium 3.9 Chloride 110 H Carbon Dioxide 24 Anion Gap 7 L BUN 5 L Creatinine 0.6 Creat Clearance w eGFR > 60 Random Glucose 126 H Calcium 8.3 L Phosphorus 3.0 Magnesium 2.0 Total Bilirubin 1.1 H AST 30 ALT 82 H Alkaline Phosphatase 62 Total Protein 5.8 L Albumin 2.8 L Blood Type Antibody Screen 10/26/18 06:00 WBC RBC Hgb Hct MCV MCH MCHC RDW Plt Count MPV Absolute Neuts (auto) Neutrophils % Lymphocytes % Monocytes % Eosinophils % Basophils % Nucleated RBC % PT with INR INR Sodium Potassium Chloride Carbon Dioxide Anion Gap BUN Creatinine Creat Clearance w eGFR Random Glucose Calcium Phosphorus Magnesium Total Bilirubin AST ALT Alkaline Phosphatase Total Protein Albumin Blood Type A POSITIVE Antibody Screen Negative Active Medications Generic Name Dose Route Start Last Admin Trade Name [place] PRN Reason Stop Dose Admin Acetaminophen 1,000 mg 10/25/18 20:38 10/26/18 11:40 Ofirmev Injection - IVPB 1,000 mg Q6H PRN Administration PAIN LEVEL 6-10 Heparin Sodium (Porcine) 5,000 unit 10/25/18 22:00 10/26/18 14:12 Heparin - SQ 5,000 unit TID MASON Administration Sodium Chloride 1,000 mls @ 125 mls/hr 10/25/18 20:38 10/26/18 09:17 Normal Saline - IV 125 mls/hr ASDIR MASON Administration Piperacillin Sod/Tazobactam 50 mls @ 100 mls/hr 10/26/18 10:00 10/26/18 09:16 Sod 3.375 gm/ Dextrose IVPB 100 mls/hr Q8H-IV MASON Administration Protocol ASSESSMENT/PLAN: 38 year old female with significant past medical history of complicated diverticulitis with colovesicle fistula s/p surgery presented to the ED with the chief complaint of " abdominal pain x 1 day and diarrhea for 5 days" Acute Uncomplicated Diverticulitis -Pt with history of colonic resection secondary to sepsis and colovesicular fistula last year, has been stable with no complaints since then -Given Zosyn in ED -ID/Surgery consulted in ED -Not a surgical candidate at this time -Will await ID recs for abx therapy -NS @ 125 cc/hr, advance diet as tolerated and d/c fluids when advanced DVT Prophylaxis -Heparin 5000 units SQ TID FEN -Fluids: NS @ 125 cc/hr -Electrolytes: No electrolyte abnormalities, BMP in AM -Nutrition: Tolerating clear liquids, advance as tolerated Disposition Med/Surg, can likely DC soon as uncomplicated and rapidly improved Visit type - Emergency Visit Emergency Visit: Yes ED Registration Date: 10/25/18 Care time: The patient presented to the Emergency Department on the above date and was hospitalized for further evaluation of their emergent condition. - New Patient This patient is new to me today: Yes Date on this admission: 10/26/18 - Critical Care Critical Care patient: No
--- NOTE | 2018-10-26 17:33 | CON.ID ---
Consult Consult Specialty:: infectious diseases Referred by:: hospitalist Reason for Consultation:: diverticulitis - History of Present Illness Chief Complaint: abd pain - Past Medical History Gastrointestinal: Yes: Diverticulitis, Other (morbid obesity; colovesical fistula s/p takedown) ...LMP: 11/19/12 ...: No Additional Medical History: morbid obesity - Past Surgical History Past Surgical History: Yes: Cholecystectomy (laparoscopic 2-3 years ago), Colectomy (sigmoidectomy with colovesical fistula takedown (lap converted to open 04/18)), Colonoscopy (few months ago) - Alcohol/Substance Use Hx Alcohol Use: Yes (4-5 drinks, about 3 times weekly) History of Substance Use: reports: None - Smoking History Smoking history: Former smoker Have you smoked in the past 12 months: No Aproximately how many cigarettes per day: 0 If you are a former smoker, when did you quit?: over 15 yrs ago - Social History ADL: Independent Home Medications - Allergies Allergies/Adverse Reactions: Allergies Allergy/AdvReac Type Severity Reaction Status Date / Time No Known Drug Allergies Allergy Verified 10/25/18 10:44 lactose AdvReac Verified 10/25/18 10:44 cherries Allergy Uncoded 10/25/18 10:44 - Home Medications Home Medications: Ambulatory Orders Nabumetone 750 mg PO TID 10/26/18 Physical Exam Vital Signs: Vital Signs Temperature 98.0 F 10/26/18 14:51 Pulse Rate 84 10/26/18 14:51 Respiratory Rate 22 H 10/26/18 14:51 Blood Pressure 133/66 10/26/18 14:51 O2 Sat by Pulse Oximetry (%) 92 L 10/26/18 09:00 Labs: CBC, BMP 10/26/18 06:00 10/26/18 06:00
--- NOTE | 2018-10-26 18:22 | PN ---
Progress Note, Physician History of Present Illness: Pt with h/o complicated diverticulitis with colovesical fistula s/p sigmoidectomy with fistula takedown, now with uncomplicated descending colon diverticulitis. She reports pain resolved, only took tylenol once today more for her back. She was started on clear liquids for lunch and is tolerating without increase in pain. Diarrhea continues, likely oral contrast contributing today and tomorrow. She has been up and denies f/c, n/v, voiding difficulties. She is seen and examined sitting and lying on her bed. - Current Medication List Current Medications: Active Medications Acetaminophen (Ofirmev Injection -) 1,000 mg IVPB Q6H PRN PRN Reason: PAIN LEVEL 6-10 Last Admin: 10/26/18 11:40 Dose: 1,000 mg Heparin Sodium (Porcine) (Heparin -) 5,000 unit SQ TID MASON Last Admin: 10/26/18 14:12 Dose: 5,000 unit Sodium Chloride (Normal Saline -) 1,000 mls @ 125 mls/hr IV ASDIR MASON Last Admin: 10/26/18 09:17 Dose: 125 mls/hr Piperacillin Sod/Tazobactam (Sod 3.375 gm/ Dextrose) 50 mls @ 100 mls/hr IVPB Q6H-IV MASON; Protocol - Objective Vital Signs: Vital Signs Temperature 98.0 F 10/26/18 14:51 Pulse Rate 84 10/26/18 14:51 Respiratory Rate 22 H 10/26/18 14:51 Blood Pressure 133/66 10/26/18 14:51 O2 Sat by Pulse Oximetry (%) 92 L 10/26/18 09:00 Constitutional: Yes: No Distress, Calm, Obese Eyes: Yes: Conjunctiva Clear, EOM Intact HENT: Yes: Atraumatic, Normocephalic Gastrointestinal: Yes: Soft, Abdomen, Obese, Hernia (lower midline hernia defect , mostly reducible), Tenderness (minimal at left lateral abdomen, much improved from yesterday, none elsewhere). No: Tenderness, Epigastrium Extremities: No: Cool, Cyanosis Integumentary: Yes: Tattoos. No: Jaundice, Rash Neurological: Yes: Alert, Oriented Labs: CBC, BMP 10/26/18 06:00 10/26/18 06:00 INR, PTT INR 1.11 (0.83-1.09) H 10/26/18 06:00 wbc down 9 to 7, still normal better hydrated CMP Sodium 140 mmol/L (136-145) 10/26/18 06:00 Potassium 3.9 mmol/L (3.5-5.1) 10/26/18 06:00 Chloride 110 mmol/L (98-107) H 10/26/18 06:00 Carbon Dioxide 24 mmol/L (21-32) 10/26/18 06:00 Anion Gap 7 MMOL/L (8-16) L 10/26/18 06:00 BUN 5 mg/dL (7-18) L 10/26/18 06:00 Creatinine 0.6 mg/dL (0.55-1.3) 10/26/18 06:00 Creat Clearance w eGFR > 60 (>60) 10/26/18 06:00 Random Glucose 126 mg/dL (74-106) H 10/26/18 06:00 Calcium 8.3 mg/dL (8.5-10.1) L 10/26/18 06:00 Phosphorus 3.0 mg/dL (2.5-4.9) 10/26/18 06:00 Magnesium 2.0 mg/dL (1.8-2.4) 10/26/18 06:00 Total Bilirubin 1.1 mg/dL (0.2-1) H 10/26/18 06:00 AST 30 U/L (15-37) 10/26/18 06:00 ALT 82 U/L (13-61) H 10/26/18 06:00 Alkaline Phosphatase 62 U/L (45-117) 10/26/18 06:00 Total Protein 5.8 g/dl (6.4-8.2) L 10/26/18 06:00 Albumin 2.8 g/dl (3.4-5.0) L 10/26/18 06:00 Lipase 166 U/L (73-393) 10/25/18 10:28 Microbiology 10/25/18 11:15 Urine Culture - Final Urine - Urine Clean Catch NO GROWTH OBTAINED stool studies pending Problem List - Problems (1) Diverticulitis large intestine w/o perforation or abscess w/o bleeding Assessment/Plan: admitted to medicine clears ok, but would go slow advancing diet has had 24 hrs of IV antibiotics, ID continuing Zosyn - discussed with Dr. Cedeno nonnarcotic pain meds first line OOB/ambulation as able GI/DVT prophylaxis stool studies ordered, not yet collected she will need to f/u with GI as outpatient for colonoscopy 6-8 weeks after recovery (never had one after first episode) Code(s): K57.32 - DVTRCLI OF LG INT W/O PERFORATION OR ABSCESS W/O BLEEDING (2) LLQ pain Assessment/Plan: essentially resolved Code(s): R10.32 - LEFT LOWER QUADRANT PAIN (3) Left lower quadrant abdominal tenderness without rebound tenderness Assessment/Plan: minimal, improved Code(s): R10.814 - LEFT LOWER QUADRANT ABDOMINAL TENDERNESS (4) Morbid (severe) obesity due to excess calories Assessment/Plan: had long discussion with patient about pursuing weight loss strategies encouraged her to discuss with PMD, family, peer group - seek a plan/framework and support that will work for her bariatric surgery is an option could possibly consider asking about additional colon resection at time of a bariatric procedure? since she still has diverticuli would not address hernia repair until after weight loss goals achieved, and/or additional procedures completed Code(s): E66.01 - MORBID (SEVERE) OBESITY DUE TO EXCESS CALORIES
[2018-10-26] MEDS: PIPERACILLIN/TAZOB 3.375 GM 3.375 GM in DEXTROSE 5%-WATER - 50 ML IVPB SCH (20:31)
[2018-10-27] MEDS: PIPERACILLIN/TAZOB 3.375 GM 3.375 GM in DEXTROSE 5%-WATER - 50 ML IVPB SCH ×4 (03:55→21:33)
[2018-10-27] MEDS ORDERED: PIPERACILLIN/TAZOBACTAM 3.375 GM VIAL IVPB ONE ×4 (04:08→21:13)
[2018-10-27] MEDS ORDERED: DEXTROSE 5%-WATER - 50 ML IVPB ONE ×4 (04:09→21:14)
[2018-10-27] MEDS: SODIUM CHLORIDE 1,000 ML IV SCH (05:58)
[2018-10-27] MEDS: HEPARIN NA (PORCINE) 5,000 UNITS/ML 1ML VIAL SQ SCH ×4 (06:00→21:40)
[2018-10-27 08:33] LABS: HEMATOCRIT 37.5 % (32.4-45.2); HEMOGLOBIN 13.2 GM/dL (10.7-15.3); MCH 32.5 pg (25.7-33.7); MCHC 35.3 g/dl (32.0-36.0); MEAN CELL VOLUME 92.1 fl (80-96); MEAN PLT VOLUME 9.1 fl (7.5-11.1); PLATELET COUNT 146 K/MM3 (134-434); RBC 4.07 M/mm3 (3.60-5.2); RDW 12.9 % (11.6-15.6); WHITE BLOOD COUNT 7.4 K/mm3 (4.0-10.0)
[2018-10-27 09:04] LABS: ALBUMIN 2.7 g/dl (3.4-5.0); ALK PHOS 62 U/L (45-117); ANION GAP 9 MMOL/L (8-16); BILIRUBIN,DIRECT 0.3 mg/dL (0.0-0.2); BILIRUBIN,TOTAL 0.7 mg/dL (0.2-1); BLOOD UREA NITROGEN 5 mg/dL (7-18); CHLORIDE 111 mmol/L (98-107); CO2 23 mmol/L (21-32); CREATININE 0.6 mg/dL (0.55-1.3); GLUCOSE,RANDOM 127 mg/dL (74-106); MAGNESIUM 1.5 mg/dL (1.8-2.4); PHOSPHOROUS 2.9 mg/dL (2.5-4.9); POTASSIUM 3.7 mmol/L (3.5-5.1); SGOT/AST 24 U/L (15-37); SGPT/ALT 63 U/L (13-61); SODIUM 143 mmol/L (136-145)
[2018-10-27] MEDS ORDERED: ACETAMINOPHEN 325 MG TABLET (FP) PO PRN (09:24)
--- NOTE | 2018-10-27 09:30 | PN ---
Progress Note, Physician History of Present Illness: Pt with h/o complicated diverticulitis with colovesical fistula s/p sigmoidectomy with fistula takedown, now with uncomplicated descending colon diverticulitis. She reports pain resolved, just a little tenderness like yesterday left. She is tolerating clear liquids without increase in pain. Stool is turning yellow and grainy/with particulate matter. She has been up and denies f/c, n/v, voiding difficulties. She is seen and examined sitting in bed. No specific complaints. - Current Medication List Current Medications: Active Medications Acetaminophen (Ofirmev Injection -) 1,000 mg IVPB Q6H PRN PRN Reason: PAIN LEVEL 6-10 Last Admin: 10/26/18 11:40 Dose: 1,000 mg Heparin Sodium (Porcine) (Heparin -) 5,000 unit SQ TID MASON Last Admin: 10/27/18 06:00 Dose: 5,000 unit Sodium Chloride (Normal Saline -) 1,000 mls @ 125 mls/hr IV ASDIR MASON Last Admin: 10/27/18 05:58 Dose: 125 mls/hr Piperacillin Sod/Tazobactam (Sod 3.375 gm/ Dextrose) 50 mls @ 100 mls/hr IVPB Q6H-IV MASON; Protocol Last Admin: 10/27/18 03:55 Dose: 100 mls/hr - Objective Vital Signs: Vital Signs Temperature 98.3 F 10/27/18 06:00 Pulse Rate 76 10/27/18 06:00 Respiratory Rate 17 10/27/18 06:00 Blood Pressure 129/65 10/27/18 06:00 O2 Sat by Pulse Oximetry (%) 96 10/26/18 21:00 Constitutional: Yes: No Distress, Calm, Obese Eyes: Yes: Conjunctiva Clear, EOM Intact HENT: Yes: Atraumatic, Normocephalic Gastrointestinal: Yes: Normal Bowel Sounds, Soft, Abdomen, Obese, Tenderness ( mild left lateral tenderness, similar to yesterday). No: Tenderness, Epigastrium, Tenderness, Rebound Extremities: No: Cool, Cyanosis Integumentary: No: Jaundice, Rash Neurological: Yes: Alert, Oriented Labs: CBC, BMP 10/27/18 07:55 10/27/18 07:55 stool studies pending Problem List - Problems (1) Diverticulitis large intestine w/o perforation or abscess w/o bleeding Assessment/Plan: ok to advance to fulls for lunch and dinner, diet in am if doing well Zosyn per ID nonnarcotic pain meds first line, po OOB/ambulation as able GI/DVT prophylaxis stop IV fluids, replete Magnesium stool studies pending she will need to f/u with GI as outpatient for colonoscopy 6-8 weeks after recovery (never had one after first episode) discussed with Drs. Morales and Brett of primary team Code(s): K57.32 - DVTRCLI OF LG INT W/O PERFORATION OR ABSCESS W/O BLEEDING (2) LLQ pain Assessment/Plan: resolved Code(s): R10.32 - LEFT LOWER QUADRANT PAIN (3) Left lower quadrant abdominal tenderness without rebound tenderness Assessment/Plan: minimal, improved Code(s): R10.814 - LEFT LOWER QUADRANT ABDOMINAL TENDERNESS (4) Morbid (severe) obesity due to excess calories Assessment/Plan: had long discussion with patient yesterday about pursuing weight loss strategies encouraged her to discuss with PMD, family, peer group - seek a plan/framework and support that will work for her bariatric surgery is an option could possibly consider asking about additional colon resection at time of a bariatric procedure? since she still has diverticuli would not address hernia repair until after weight loss goals achieved, and/or additional procedures completed Code(s): E66.01 - MORBID (SEVERE) OBESITY DUE TO EXCESS CALORIES
[2018-10-27] MEDS ORDERED: MAGNESIUM SULF 50% (8.12 MEQ/2 ML-1 GM VIAL) IVPB ONE (09:45)
--- NOTE | 2018-10-27 11:31 | PN ---
Progress Note, Physician History of Present Illness: stable improving no complaints mild pain plan to start liquids - Current Medication List Current Medications: Active Medications Acetaminophen (Tylenol -) 650 mg PO Q6H PRN PRN Reason: PAIN LEVEL 6-10 Heparin Sodium (Porcine) (Heparin -) 5,000 unit SQ TID MASON Last Admin: 10/27/18 06:00 Dose: 5,000 unit Piperacillin Sod/Tazobactam (Sod 3.375 gm/ Dextrose) 50 mls @ 100 mls/hr IVPB Q6H-IV MASON; Protocol Last Admin: 10/27/18 09:44 Dose: 100 mls/hr - Objective Vital Signs: Vital Signs Temperature 98.3 F 10/27/18 06:00 Pulse Rate 76 10/27/18 06:00 Respiratory Rate 17 10/27/18 06:00 Blood Pressure 129/65 10/27/18 06:00 O2 Sat by Pulse Oximetry (%) 96 10/26/18 21:00 Constitutional: Yes: No Distress, Calm, Obese Cardiovascular: Yes: Regular Rate and Rhythm Respiratory: Yes: Regular, CTA Bilaterally Gastrointestinal: Yes: Soft, Hypoactive Bowel Sounds Musculoskeletal: Yes: WNL Extremities: Yes: WNL Neurological: Yes: Alert, Oriented Psychiatric: Yes: Alert, Oriented Labs: CBC, BMP 10/27/18 07:55 10/27/18 07:55 INR, PTT INR 1.11 (0.83-1.09) H 10/26/18 06:00 Assessment/Plan Problem List - Problems (1) Diverticulitis large intestine w/o perforation or abscess w/o bleeding Code(s): K57.32 - DVTRCLI OF LG INT W/O PERFORATION OR ABSCESS W/O BLEEDING (2) LLQ pain Code(s): R10.32 - LEFT LOWER QUADRANT PAIN (3) Left lower quadrant abdominal tenderness without rebound tenderness Code(s): R10.814 - LEFT LOWER QUADRANT ABDOMINAL TENDERNESS (4) Morbid (severe) obesity due to excess calories Code(s): E66.01 - MORBID (SEVERE) OBESITY DUE TO EXCESS CALORIES plan continue current mgmt await for diet to be advanced
--- NOTE | 2018-10-27 11:32 | PN ---
Physical Exam: SUBJECTIVE: Patient seen and examined this AM. She states she is feeling much better. She has had no diarrhea since yesterday though she notes 3 episodes yesterday. States she is not having any pain currently. OBJECTIVE: Vital Signs Period Temp Pulse Resp BP Sys/Beyre Pulse Ox Last 24 Hr 98.0 F-99.3 F 76-88 17-22 114-146/65-68 96 GENERAL: A&O, no acute distress HEAD: Normocephalic, atraumatic. EYES: PERRL, no scleral icterus EARS, NOSE, THROAT: oropharynx clear without exudates. Moist mucous membranes. LUNGS: CTA b/l, no crackles or wheezes HEART: Regular rate and rhythm, normal S1 and S2 without murmur ABDOMEN: Soft, minimal tenderness to deep palpation in Left lateral quadrant, normoactive bowel sounds EXTREMITIES: 2+ pulses, warm, well-perfused. No peripheral edema. NEUROLOGICAL: Cranial nerves II-XII grossly intact. Normal speech. Laboratory Results - last 24 hr 10/27/18 10/27/18 07:55 07:55 WBC 7.4 RBC 4.07 Hgb 13.2 Hct 37.5 MCV 92.1 MCH 32.5 MCHC 35.3 RDW 12.9 Plt Count 146 MPV 9.1 Sodium 143 Potassium 3.7 Chloride 111 H Carbon Dioxide 23 Anion Gap 9 BUN 5 L Creatinine 0.6 Creat Clearance w eGFR > 60 Random Glucose 127 H Calcium 8.0 L Phosphorus 2.9 Magnesium 1.5 L Total Bilirubin 0.7 Direct Bilirubin 0.3 H AST 24 ALT 63 H Alkaline Phosphatase 62 Total Protein 6.0 L Albumin 2.7 L Active Medications Generic Name Dose Route Start Last Admin Trade Name Freq PRN Reason Stop Dose Admin Acetaminophen 650 mg 10/27/18 09:24 Tylenol - PO Q6H PRN PAIN LEVEL 6-10 Heparin Sodium (Porcine) 5,000 unit 10/25/18 22:00 10/27/18 06:00 Heparin - SQ 5,000 unit TID MASON Administration Piperacillin Sod/Tazobactam 50 mls @ 100 mls/hr 10/26/18 21:00 10/27/18 09:44 Sod 3.375 gm/ Dextrose IVPB 100 mls/hr Q6H-IV MASON Administration Protocol ASSESSMENT/PLAN: 38 year old female with significant past medical history of complicated diverticulitis with colovesicle fistula s/p surgery presented to the ED with the chief complaint of " abdominal pain x 1 day and diarrhea for 5 days" Acute Uncomplicated Diverticulitis -Pt with history of colonic resection secondary to sepsis and colovesicular fistula last year, has been stable with no complaints since then -continue Zosyn -ID/Surgery consult appreciated -Not a surgical candidate at this time -NS @ 125 cc/hr, advance diet as tolerated and d/c fluids when advanced DVT Prophylaxis -Heparin 5000 units SQ TID FEN -Fluids: NS @ 125 cc/hr -Electrolytes: No electrolyte abnormalities, BMP in AM -Nutrition: Tolerating clear liquids, advance to full liquids Disposition Med/Surg, can likely DC soon as uncomplicated and rapidly improved Visit type - Emergency Visit Emergency Visit: Yes ED Registration Date: 10/25/18 Care time: The patient presented to the Emergency Department on the above date and was hospitalized for further evaluation of their emergent condition. - New Patient This patient is new to me today: No - Critical Care Critical Care patient: No
--- NOTE | 2018-10-27 13:42 | PN ---
Teaching Attending Note Name of Resident: Jerrell West ATTENDING PHYSICIAN STATEMENT I saw and evaluated the patient. I reviewed the resident's note and discussed the case with the resident. I agree with the resident's findings and plan as documented. SUBJECTIVE: Patient has no complaints. She is tolerating clear liquids. OBJECTIVE: Vital Signs Period Temp Pulse Resp BP Sys/Beyer Pulse Ox Last 24 Hr 98.0 F-99.3 F 76-88 17-22 114-146/65-68 96 HEART: S1S2, RRR LUNGS: Clear ABDOMEN: Obese, soft, non-distended, decreased left-sided tenderness, normal BS EXTREMITIES: No edema Laboratory Results - last 24 hr 10/27/18 10/27/18 07:55 07:55 WBC 7.4 RBC 4.07 Hgb 13.2 Hct 37.5 MCV 92.1 MCH 32.5 MCHC 35.3 RDW 12.9 Plt Count 146 MPV 9.1 Sodium 143 Potassium 3.7 Chloride 111 H Carbon Dioxide 23 Anion Gap 9 BUN 5 L Creatinine 0.6 Creat Clearance w eGFR > 60 Random Glucose 127 H Calcium 8.0 L Phosphorus 2.9 Magnesium 1.5 L Total Bilirubin 0.7 Direct Bilirubin 0.3 H AST 24 ALT 63 H Alkaline Phosphatase 62 Total Protein 6.0 L Albumin 2.7 L Current Medications Generic Name Dose Route Start Last Admin Trade Name Freq PRN Reason Stop Dose Admin Acetaminophen 650 mg 10/27/18 09:24 Tylenol - PO Q6H PRN PAIN LEVEL 6-10 Heparin Sodium (Porcine) 5,000 unit 10/25/18 22:00 10/27/18 06:00 Heparin - SQ 5,000 unit TID MASON Administration Piperacillin Sod/Tazobactam 50 mls @ 100 mls/hr 10/26/18 21:00 10/27/18 09:44 Sod 3.375 gm/ Dextrose IVPB 100 mls/hr Q6H-IV MASON Administration Protocol ASSESSMENT AND PLAN: This is a 38 year old woman with a history of diverticular abscess with colovesical fistula, sigmoid resection, cholecystectomy who presented to the ED with abdominal pain and diarrhea. 1. Acute diverticulitis, uncomplicated - Afebrile - WBC normal - Pain is significantly better - Advance diet to full liquids - Discontinue IV fluid - Continue Zosyn 2. Diarrhea - Stool studies pending 3. Hypomagnesemia - Supplement magnesium 4. Hepatic transaminitis - Improving 5. Morbid obesity with BMI 42.7
[2018-10-28] MEDS ORDERED: PIPERACILLIN/TAZOBACTAM 3.375 GM VIAL IVPB ONE ×4 (01:52→20:55)
[2018-10-28] MEDS ORDERED: DEXTROSE 5%-WATER - 50 ML IVPB ONE ×4 (01:52→20:55)
[2018-10-28] MEDS: PIPERACILLIN/TAZOB 3.375 GM 3.375 GM in DEXTROSE 5%-WATER - 50 ML IVPB SCH ×4 (02:39→21:33)
[2018-10-28] MEDS: HEPARIN NA (PORCINE) 5,000 UNITS/ML 1ML VIAL SQ SCH ×3 (06:28→21:34)
[2018-10-28 07:37] LABS: HEMATOCRIT 37.4 % (32.4-45.2); HEMOGLOBIN 13.3 GM/dL (10.7-15.3); MCH 32.7 pg (25.7-33.7); MCHC 35.6 g/dl (32.0-36.0); MEAN CELL VOLUME 91.7 fl (80-96); PLATELET COUNT 163 K/MM3 (134-434); RBC 4.07 M/mm3 (3.60-5.2); RDW 12.8 % (11.6-15.6); WHITE BLOOD COUNT 4.6 K/mm3 (4.0-10.0)
[2018-10-28 07:51] LABS: ALBUMIN 2.8 g/dl (3.4-5.0); ALK PHOS 64 U/L (45-117); ANION GAP 8 MMOL/L (8-16); BILIRUBIN,TOTAL 0.6 mg/dL (0.2-1); BLOOD UREA NITROGEN 6 mg/dL (7-18); CALCIUM 8.2 mg/dL (8.5-10.1); CHLORIDE 107 mmol/L (98-107); CO2 26 mmol/L (21-32); CREATININE 0.6 mg/dL (0.55-1.3); GLUCOSE,RANDOM 118 mg/dL (74-106); MAGNESIUM 1.8 mg/dL (1.8-2.4); PHOSPHOROUS 3.7 mg/dL (2.5-4.9); POTASSIUM 3.7 mmol/L (3.5-5.1); SGOT/AST 28 U/L (15-37); SGPT/ALT 61 U/L (13-61); SODIUM 140 mmol/L (136-145); TOT PROT 6.2 g/dl (6.4-8.2)
--- NOTE | 2018-10-28 13:19 | PN ---
Progress Note, Physician History of Present Illness: stable no new issues plan to advanced diet - Current Medication List Current Medications: Active Medications Acetaminophen (Tylenol -) 650 mg PO Q6H PRN PRN Reason: PAIN LEVEL 6-10 Heparin Sodium (Porcine) (Heparin -) 5,000 unit SQ TID MASON Last Admin: 10/28/18 06:28 Dose: Not Given Piperacillin Sod/Tazobactam (Sod 3.375 gm/ Dextrose) 50 mls @ 100 mls/hr IVPB Q6H-IV MASON; Protocol Last Admin: 10/28/18 11:06 Dose: 100 mls/hr - Objective Vital Signs: Vital Signs Temperature 97.8 F 10/28/18 10:00 Pulse Rate 82 10/28/18 10:00 Respiratory Rate 20 10/28/18 10:00 Blood Pressure 113/78 10/28/18 10:00 O2 Sat by Pulse Oximetry (%) 98 10/27/18 21:00 Constitutional: Yes: No Distress, Calm Cardiovascular: Yes: Regular Rate and Rhythm Respiratory: Yes: Regular, CTA Bilaterally Gastrointestinal: Yes: Soft, Hypoactive Bowel Sounds Musculoskeletal: Yes: WNL Extremities: Yes: WNL Neurological: Yes: Alert, Oriented Psychiatric: Yes: Alert, Oriented Labs: CBC, BMP 10/28/18 06:00 10/28/18 06:00 INR, PTT INR 1.11 (0.83-1.09) H 10/26/18 06:00 Assessment/Plan Problem List - Problems (1) Diverticulitis large intestine w/o perforation or abscess w/o bleeding Code(s): K57.32 - DVTRCLI OF LG INT W/O PERFORATION OR ABSCESS W/O BLEEDING (2) LLQ pain Code(s): R10.32 - LEFT LOWER QUADRANT PAIN (3) Left lower quadrant abdominal tenderness without rebound tenderness Code(s): R10.814 - LEFT LOWER QUADRANT ABDOMINAL TENDERNESS (4) Morbid (severe) obesity due to excess calories Code(s): E66.01 - MORBID (SEVERE) OBESITY DUE TO EXCESS CALORIES plan continue current mgmt await for diet to be advanced once diet is advanced will switch to oral rest as pert he team
--- NOTE | 2018-10-28 14:38 | PN ---
Physical Exam: SUBJECTIVE: Patient seen and examined. She is tolerating a regular diet. She denies abdominal pain, nausea, vomiting, diarrhea. OBJECTIVE: Vital Signs Period Temp Pulse Resp BP Sys/Beyer Pulse Ox Last 24 Hr 97.5 F-99 F 69-83 17-20 113-142/75-98 97-98 GENERAL: The patient is awake, alert, and fully oriented, in no acute distress. LUNGS: Breath sounds equal, clear to auscultation bilaterally, no wheezes, no crackles, no accessory muscle use. HEART: Regular rate and rhythm, S1, S2 without murmur, rub or gallop. ABDOMEN: Obese, soft, nontender, nondistended, normoactive bowel sounds, no guarding, no rebound, no hepatosplenomegaly, no masses. EXTREMITIES: 2+ pulses, warm, well-perfused, no edema. Laboratory Results - last 24 hr 10/28/18 10/28/18 06:00 06:00 WBC 4.6 RBC 4.07 Hgb 13.3 Hct 37.4 MCV 91.7 MCH 32.7 MCHC 35.6 RDW 12.8 Plt Count 163 MPV 9.0 Sodium 140 Potassium 3.7 Chloride 107 Carbon Dioxide 26 Anion Gap 8 BUN 6 L Creatinine 0.6 Creat Clearance w eGFR > 60 Random Glucose 118 H Calcium 8.2 L Phosphorus 3.7 Magnesium 1.8 Total Bilirubin 0.6 AST 28 ALT 61 Alkaline Phosphatase 64 Total Protein 6.2 L Albumin 2.8 L Active Medications Generic Name Dose Route Start Last Admin Trade Name Freq PRN Reason Stop Dose Admin Acetaminophen 650 mg 10/27/18 09:24 Tylenol - PO Q6H PRN PAIN LEVEL 6-10 Heparin Sodium (Porcine) 5,000 unit 10/25/18 22:00 10/28/18 06:28 Heparin - SQ Not Given TID MASON Piperacillin Sod/Tazobactam 50 mls @ 100 mls/hr 10/26/18 21:00 10/28/18 11:06 Sod 3.375 gm/ Dextrose IVPB 100 mls/hr Q6H-IV MASON Administration Protocol ASSESSMENT/PLAN: This is a 38 year old woman with a history of diverticular abscess with colovesical fistula, sigmoid resection, cholecystectomy who presented to the ED with abdominal pain and diarrhea. 1. Acute diverticulitis, uncomplicated - Continue Zosyn - Tolerating diet 2. Diarrhea - Stool C. diff Ag (+) and toxin (-) - diarrhea has resolved so will not treat 3. Hypomagnesemia - Improved 4. Hepatic transaminitis - Improved 5. Morbid obesity with BMI 42.7 6. Disposition - Expect discharge tomorrow Visit type - Emergency Visit Emergency Visit: Yes ED Registration Date: 10/25/18 Care time: The patient presented to the Emergency Department on the above date and was hospitalized for further evaluation of their emergent condition. - New Patient This patient is new to me today: No - Critical Care Critical Care patient: No - Discharge Referral Referred to [facility] Med P.C.: No
[2018-10-29] MEDS ORDERED: PIPERACILLIN/TAZOBACTAM 3.375 GM VIAL IVPB ONE ×2 (03:31→09:05)
[2018-10-29] MEDS ORDERED: DEXTROSE 5%-WATER - 50 ML IVPB ONE ×2 (03:31→09:06)
[2018-10-29] MEDS: PIPERACILLIN/TAZOB 3.375 GM 3.375 GM in DEXTROSE 5%-WATER - 50 ML IVPB SCH ×2 (03:33→09:17)
[2018-10-29] MEDS: HEPARIN NA (PORCINE) 5,000 UNITS/ML 1ML VIAL SQ SCH (05:37)
[2018-10-29 10:48] VITALS: BP 147/89; PULSE 92; TEMP 97.8
--- NOTE | 2018-10-29 11:37 | DS ---
Physical Exam: SUBJECTIVE: Patient seen and examined OBJECTIVE: Vital Signs Period Temp Pulse Resp BP Sys/Beyer Pulse Ox Last 24 Hr 97.7 F-98.2 F 76-92 18-22 116-147/61-89 97 PHYSICAL EXAM GENERAL: The patient is awake, alert, and fully oriented, in no acute distress. HEAD: Normal with no signs of trauma. EYES: PERRL, extraocular movements intact, sclera anicteric, conjunctiva clear. ENT: Ears normal, nares patent, oropharynx clear without exudates, moist mucous membranes. NECK: Trachea midline, full range of motion, supple. LUNGS: Breath sounds equal, clear to auscultation bilaterally, no wheezes, no crackles, no accessory muscle use. HEART: Regular rate and rhythm, S1, S2 without murmur, rub or gallop. ABDOMEN: Soft, nontender, nondistended, normoactive bowel sounds, no guarding, no rebound, no hepatosplenomegaly, no masses. EXTREMITIES: 2+ pulses, warm, well-perfused, no edema. NEUROLOGICAL: Cranial nerves II through XII grossly intact. Normal speech, gait not observed. PSYCH: Normal mood, normal affect. SKIN: Warm, dry, normal turgor, no rashes or lesions noted. LABS HOSPITAL COURSE: Date of Admission:10/25/18 Date of Discharge: 10/29/18 HPI On Admission: Patient is a 38 year old female presented to the ED with the chief complaint of " abdominal pain x 1 day and diarrhoea for 5 days". As per the patient, she was apparently well until 5 days ago, was in [place] for a vacation, then started having mild abdominal pain, located diffusely, 2/10 in intensity, crampy in nature, non radiating, associated with 5-6 episodes of watery diarrhoea. She came back to [place] yesterday 10/23/18 went to urgent care, was given Pepto-bismol. Since last night at 2am started having severe pain on the LLQ, 7/10 in intensity , constant, sharp/crampy in nature, non radiating, not associated with nausea and vomiting. Symptoms were similar to the one she had in 2017 when she had acute complicated diverticulitis, hence came in to the ED for further evaluation and treatment. Denies fever, chills, rigors, sweating, headache, numbness, tingling or any other symptoms. No urinary symptoms. States she hasn't eaten since yesterday. Prior to that she was on liquid diet due to diarrhoea. Sleep disturbed since her illness. While in the ED noticed two hives in the abdomen, gives no h/o allergies to penicillin. Patient was admitted here at [facility] from 04/10/17 to 04/20/17 for acute complicated diverticulits with an abscess and colovesicle fistula s/p Laparoscopy converted to sigmoidectomy with taken down of colovesicle fistula. Also had E.coli bacteremia and UTI. Hospital Course: She was seen by Surgery and ID. She was not a surgical candidate, though it was recommended that her diet be very cautiously advanced. She was treated with Zosyn which was converted to PO Levaquin and Flagyl for an additional 7 days on discharge (12 days total). Her clinical symptoms greatly improved and she was deemed medically safe for discharge. She was counseled about her obesity and instructed on the importance of weight loss, she was given referral information for bariatric surgery on discharge as well. She was also instructed on the importance of follow up with GI for a colonoscopy as she had never followed up previously for colonoscopy after her sigmoidectomy previously. Minutes to complete discharge: 35 Discharge Summary Reason For Visit: DIVERTICULITIS LRG INTESTINE W/O PERFORATION OR Condition: Stable - Instructions Diet, Activity, Other Instructions: You were admitted for acute uncomplicated diverticulitis. You were given fluids and antibiotics which improved your symptoms. You were seen by surgery and infectious disease. It was determined you did not need surgery at this time. Your IV antibiotics were switched to by mouth, and at this time you are medically safe for discharge from the hospital. It is very important that you lose weight for overall benefit to your health. You have a hernia which could eventually need to be repaired surgically, however it is unlikely to be done prior to significant weight loss. You should follow up with your doctor within 1 week of discharge. You should also follow up with a GI doctor within 2 weeks of discharge from the hospital. You will need a colonoscopy scheduled. It is very important that you follow up and have a colonoscopy. Information for a bariatric surgeon has been included in your discharge packet, you may wish to follow up for further management of your obesity. You should take the Antibiotics by mouth for 7 more days. Levaquin 750 mg by mouth once per day and Flagyl (metronidazole) 500 mg by mouth 3 times per day ( once in the morning, once at noon and once at night) have been sent to your pharmacy. If you have any severe pain, bloody stool, or any other concerning symptoms, you should be evaluated by your doctor or return to the emergency department. Referrals: Brody Bryant MD [Staff Physician] - Sriram Cates DO [Staff Physician] - Gustavo Melo MD [Staff Physician] - - Home Medications Comprehensive Discharge Medication List: Ambulatory Orders Nabumetone 750 mg PO TID 10/26/18 levoFLOXacin [Levaquin] 750 mg PO DAILY #7 tab 10/29/18 metroNIDAZOLE [Flagyl -] 500 mg PO TID 7 Days #21 tablet 10/29/18 This patient is new to me today: No Emergency Visit: Yes ED Registration Date: 10/25/18 Care time: The patient presented to the Emergency Department on the above date and was hospitalized for further evaluation of their emergent condition. Critical Care patient: No - Discharge Referral Referred to [facility] Med P.C.: No
--- NOTE | 2018-10-29 19:21 | PN ---
Teaching Attending Note Name of Resident: Jerrell West ATTENDING PHYSICIAN STATEMENT I saw and evaluated the patient. I reviewed the resident's note and discussed the case with the resident. I agree with the resident's findings and plan as documented. SUBJECTIVE: Patient feels well. OBJECTIVE: Vital Signs Period Temp Pulse Resp BP Sys/Beyer Pulse Ox Last 24 Hr 97.7 F-98.2 F 76-92 18-19 116-147/61-89 97-97 HEART: S1S2, RRR LUNGS: Clear ABDOMEN: Obese, soft, non-tender, non-distended, normal BS EXTREMITIES: No edema ASSESSMENT AND PLAN: This is a 38 year old woman with a history of diverticular abscess with colovesical fistula, sigmoid resection, cholecystectomy who presented to the ED with abdominal pain and diarrhea. 1. Acute diverticulitis, uncomplicated - On Zosyn - Tolerating diet 2. Diarrhea - Stool C. diff Ag (+) and toxin (-) - diarrhea has resolved so will not treat 3. Hypomagnesemia - Improved 4. Hepatic transaminitis - Improved 5. Morbid obesity with BMI 42.7 6. Disposition - Ok for discharge home on Levaquin and Flagyl x 7 days with GI follow up
== END 2018-10-29 12:49 | disposition home or self-care (01) | DRG 244 ==
LOC: JER 09:54 → JERBED 16:59 → J5S 10-26 01:20
PROVIDERS: ADMIT Internal Medicine; ATTEND Internal Medicine
DX: K57.32 Diverticulitis of large intestine without perforation or abscess without bleeding (principal); R19.7 Diarrhea, unspecified; E83.42 Hypomagnesemia; R74.0 Nonspecific elevation of levels of transaminase and lactic acid dehydrogenase [LDH]; E66.01 Morbid (severe) obesity due to excess calories; Z68.41 Body mass index [BMI] 40.0-44.9, adult; R10.32 Left lower quadrant pain
CPT/HCPCS: 36415; 74177-TC; 80053; 81003; 82248; 82272; 83690; 83735; 84100; 84703; 85025; 85027; 85610; 86850; 86900; 86901; 87045; 87046; 87086; 87177; 87186; 87205; 87209; 87324; 87449; 93005; 93010; 99284-25; J0131; J1644; J7030; Q9967

== ENCOUNTER 2020-03-29 12:22 | Emergency (ER) | payer OTHER ==
[2020-03-29 12:39] VITALS: BP 158/90; PULSE 90; TEMP 98.8; BMI 39.4
[2020-03-29 13:13] LABS: BASO % 0.7 % (0-2.0); EOS % 1.5 % (0-4.5); HEMATOCRIT 43.4 % (32.4-45.2); HEMOGLOBIN 14.8 GM/dL (10.7-15.3); LYMPH % 21.3 % (8-40); MCH 30.8 pg (25.7-33.7); MEAN CELL VOLUME 90.6 fl (80-96); MEAN PLT VOLUME 9.7 fl (7.5-11.1); MONO % 8.5 % (3.8-10.2); PLATELET COUNT 196 K/MM3 (134-434); RBC 4.79 M/mm3 (3.60-5.2); RDW 13.2 % (11.6-15.6)
[2020-03-29 13:17] LABS: HCG,QUALITATIVE URINE Negative
[2020-03-29 13:21] LABS: URINE APPEARANCE Clear; URINE BILIRUBIN Negative (NEGATIVE); URINE COLOR Yellow; URINE GLUCOSE (UA) Negative (NEGATIVE); URINE KETONE Negative (NEGATIVE); URINE LEUK ESTERASE Negative (NEGATIVE); URINE NITRITE Negative (NEGATIVE); URINE PROTEIN Negative (NEGATIVE); URINE UROBILINOGEN 0.2 mg/dL (0.2-1.0)
[2020-03-29] MEDS ORDERED: MAG HYDROX/AL HYDROX/SIMETH 30 ML UNIT-DOSE CUP ONE (13:21)
[2020-03-29] MEDS ORDERED: FAMOTIDINE 20 MG/50 ML IVPB 20 MG/50 ML MG IVPB ONE ×2 (13:21)
[2020-03-29] MEDS ORDERED: ACETAMINOPHEN 1000 MG/100 ML VIAL (NON FORMULARY) IVPB ONE (13:21)
[2020-03-29] MEDS ORDERED: ACETAMINOPHEN INJECTION 100 ML IVPB ONE (13:21)
[2020-03-29] MEDS ORDERED: MAG HYDROX/AL HYDROX/SIMETH -MYLANTA- ORAL SUSPENSION PO ONE (13:21)
[2020-03-29] MEDS ORDERED: LACTATED RINGERS SOLUTION 1000 ML INFUS.BAG IV ONE (13:22)
[2020-03-29 13:43] LABS: ALBUMIN 4.1 g/dl (3.4-5.0); BILIRUBIN,TOTAL 0.7 mg/dL (0.2-1); BLOOD UREA NITROGEN 10.6 mg/dL (7-18); CALCIUM 9.8 mg/dL (8.5-10.1); CREATININE 0.7 mg/dL (0.55-1.3); MAGNESIUM 1.8 mg/dL (1.8-2.4); TOT PROT 7.6 g/dl (6.4-8.2)
[2020-03-29 14:43] LABS: URINE RBC 5.9 /uL (0-23.9); URINE WBC 3.7 /uL (0-25.8)
[2020-03-29 14:44] LABS: EPI CELLS 4.4 /uL (0-25.1); HYALINE CASTS 0.64 /uL (0-3.1); URINE BACTERIA 33.4 /uL (0-1359)
== END 2020-03-29 15:29 | disposition home or self-care (01) ==
LOC: JER 12:22
PROC: 3E033GC Introduction of Other Therapeutic Substance into Peripheral Vein, Percutaneous Approach (ICD-10-PCS; principal; 2020-03-29)
DX: R10.31 Right lower quadrant pain (principal)
CPT/HCPCS: 36415; 80053; 81003; 83690; 83735; 84703; 85025; 99284-25; J0131